=== PATIENT | female | born 1975 | race African-American/Black ===

== ENCOUNTER → 2016-11-03 | Outpatient (CLI) | payer OTHER ==
--- NOTE | 2016-11-03 18:26 | PN ---
This patient is coming in to discuss the results of the home sleep study that she underwent 09/30/2016. 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 Three out of seven days, the patient works from between midnight and 7:00 a.m. For an additional two days, she works afternoon shift. Unfortunate her sleep hygiene has been poor. After coming home from work, she would sleep late around noon time and she would average around 5 hours of sleep. Her home sleep study showed a mild obstructive sleep apnea with an AHI of 12.6. I offered CPAP therapy on this patient. She is not quite comfortable initiating the treatment yet. She would opt for weight loss and improving her sleep hygiene measures. She is having some issues with hypersomnia especially at work. Her Nardin score is at 13. No history of any motor vehicle accident because of feeling drowsy or sleepy. No sleep paralysis. No hallucinations. BP is 141/73, pulse 88, respirations 16, temperature is 97.8 and weight is 192. GENERAL APPEARANCE: Calm, comfortable. HEENT: Short neck, crowding of the posterior pharynx. There is no goiter, neck masses. LUNGS: Clear to auscultation. HEART: Heart sounds are regular rate and rhythm. Normal S1, S2. ABDOMEN: Soft, nontender. No organomegaly. EXTREMITIES: No edema. No cyanosis or clubbing. IMPRESSION: 1. Mild obstructive sleep apnea, apnea-hypopnea index of 12. 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 3. Chronic hypersomnia. 4. Obesity. 5. Bronchial asthma. 6. Hypertension. PLAN: 1. Improve sleep hygiene measures and weight loss. 2. We will see him back in 6 months, then we will consider CPAP therapy if no improvement in her symptoms of chronic hypersomnia.
== END | disposition home or self-care (01) ==

== ENCOUNTER → 2018-02-16 | Day surgery (SDC) | payer BC ==
[~2018-02-16] MED LIST: LACTATED RINGERS 1,000 ML IV ONE; LIDOCAINE 1% 20 ML VIAL (10MG/ML) FOR IV START INTRADERMA ONE; LIDOCAINE 1% INJ 10MG/ML (20 ML MDV) ONE; PROPOFOL 10 MG/ML 20 ML VIAL IV ONE
--- NOTE | 2018-02-16 10:07 | P.GSHP ---
History of Present Illness H&P Date: 02/16/18 CHIEF COMPLAINT: GERD HISTORY OF PRESENT ILLNESS: The patient is a 42-year-old female who presents reports gastroesophageal reflux disease. Upper endoscopy was offered for further evaluation and management. PAST MEDICAL HISTORY: Please see list. PAST SURGICAL HISTORY: Please see list. MEDICATIONS: Please see list. ALLERGIES: Please see list. SOCIAL HISTORY: No illicit drug use FAMILY HISTORY: No reports of Crohn disease or ulcerative colitis. REVIEW OF ORGAN SYSTEMS: CONSTITUTIONAL: No reports of fevers or chills. GI: Denies any blood in stools or constipation. PHYSICAL EXAM: VITAL SIGNS: Stable GENERAL: Well-developed and pleasant in no acute distress. HEENT: No scleral icterus. Extraocular movements grossly intact. Moist buccal mucosa. NECK: Supple without lymphadenopathy. CHEST: Unlabored respirations. Equal bilateral excursions. CARDIOVASCULAR: Regular rate and rhythm. Distal 2+ pulses. ABDOMEN: Soft, nondistended. MUSCULOSKELETAL: No clubbing, cyanosis, or edema. ASSESSMENT: 1. Gastroesophageal reflux disease PLAN: 1. Recommend proceeding with an upper endoscopy Past Medical History Past Medical History: Asthma, COPD, Hypertension, Osteoarthritis (OA) Additional Past Medical History / Comment(s): gout-PATIENT RECENTLY TOLD URIC ACID FINE OFF GOUT MEDICATION MAY NEVER HAVE HAD IT, also jackeline's syndrome History of Any Multi-Drug Resistant Organisms: None Reported Past Surgical History: Appendectomy, Section, Tubal Ligation Additional Past Surgical History / Comment(s): 3 c/s's Past Anesthesia/Blood Transfusion Reactions: No Reported Reaction Past Psychological History: No Psychological Hx Reported Smoking Status: Former smoker Past Alcohol Use History: Occasional Additional Past Alcohol Use History / Comment(s): quit smoking 2 years ago; smoked for about 8 years 1 ppd Past Drug Use History: None Reported - Past Family History Father Family Medical History: Hypertension Mother Family Medical History: Deep Vein Thrombosis (DVT), Hypertension Additional Family Medical History / Comment(s): BLOOD CLOTS FOR LEGS ON COUMADIN NOT ON IT AT THIS TIME, MOTHER STILL ALIVE Medications and Allergies Home Medications Medication Instructions Recorded Confirmed Type Albuterol Inhaler [Ventolin Hfa 1 puff INHALATION Q6HR PRN 06/03/14 01/20/18 History Inhaler] Verapamil HCl [Verapamil ER] 120 mg PO DAILY 11/04/14 01/20/18 History Meloxicam [Mobic] 7.5 mg PO DAILY 01/20/18 01/20/18 History amLODIPine [Norvasc] 5 mg PO DAILY 01/20/18 01/20/18 History HYDROcodone/APAP 5-325MG [[place] 1 tab PO Q6HR PRN #10 tab 01/27/18 Rx 5-325] Allergies Allergy/AdvReac Type Severity Reaction Status Date / Time No Known Allergies Allergy Verified 01/20/18 15:39
[2018-02-16 11:33] VITALS: TEMP 97.8
--- NOTE | 2018-02-16 12:58 | P.PCN ---
Date of Procedure: 02/16/18 Description of Procedure: PREOPERATIVE DIAGNOSIS: Gastroesophageal reflux disease. Epigastric abdominal pain POSTOPERATIVE DIAGNOSIS: Epigastric abdominal pain Gastroesophageal reflux disease. Diaphragmatic hiatal hernia without obstruction, sliding type Acute gastritis with recent bleeding OPERATION: Esophagogastroduodenoscopy with biopsies along antrum. SURGEON: Natalya Katz MD ANESTHESIA: MAC. INDICATIONS: The patient is a 42-year-old female who presents with a history of reflux disease. Benefits and risks of the procedure were described. Informed consent was obtained. DESCRIPTION: The patient was brought into the endoscopy suite and laid in the left lateral decubitus position. An Olympus gastroscope was passed along the posterior oropharynx down to the distal esophagus where the squamocolumnar junction was encountered at 30 cm from the incisors. The stomach was entered and no bile reflux was found. Additional findings are listed below. Biopsies with cold forceps were obtained of the antrum. The first through third portion of the duodenum was examined and unremarkable. Retroflexion of the scope confirmed Hill grade 4 lower esophageal valve. The squamocolumnar junction demostrated early and acute LA grade A erosive esophagitis. The stomach was desufflated. The patient tolerated the procedure well. FINDINGS: Squamocolumnar junction 30 cm from the incisors. Diaphragmatic hiatus at 36 cm. Hiatal hernia 6 cm, sliding type Hill grade 4 lower esophageal valve. LA grade A erosive esophagitis. No active duodenitis. Active gastritis or recent bleeding RECOMMENDATIONS: Further recommendations pending results of pathology report. Upper endoscopy as needed. Will benefit from antireflux surgical procedure Plan - Discharge Summary New Discharge Prescriptions: No Action Albuterol Inhaler [Ventolin Hfa Inhaler] 1 puff INHALATION Q6HR PRN PRN Reason: Dyspnea Verapamil HCl [Verapamil ER] 120 mg PO DAILY amLODIPine [Norvasc] 5 mg PO DAILY Meloxicam [Mobic] 7.5 mg PO DAILY HYDROcodone/APAP 5-325MG [[place] 5-325] 1 tab PO Q6HR PRN #10 tab PRN Reason: Pain Discharge Medication List Albuterol Inhaler [Ventolin Hfa Inhaler] 1 puff INHALATION Q6HR PRN 06/03/14 [ History] Verapamil HCl [Verapamil ER] 120 mg PO DAILY 11/04/14 [History] Meloxicam [Mobic] 7.5 mg PO DAILY 01/20/18 [History] amLODIPine [Norvasc] 5 mg PO DAILY 01/20/18 [History] HYDROcodone/APAP 5-325MG [[place] 5-325] 1 tab PO Q6HR PRN #10 tab 01/27/18 [Rx]
[2018-02-16 13:31] VITALS: BP 134/84; PULSE 80; RESP 20
--- NOTE | 2018-02-16 15:01 | FL ---
EXAMINATION TYPE: FL esophagus cervic/pharynx DATE OF EXAM: 02/16/2018 HISTORY: Hiatal hernia, pain COMPARISON: NONE TECHNIQUE: A single contrast esophagram is performed utilizing air and barium. 1 min 3 sec. 12 images saved. FINDINGS: The esophagus shows normal motility and emptying into the stomach. [id number] sliding-type hia florecita hernia noted. No evidence for esophagitis or intraluminal mass. No significant gastroesophageal r eflux was seen during real time performance of this study. IMPRESSION: Hiatal hernia as noted.
== END | disposition home or self-care (01) ==
LOC: ORWHC2ENDO 09:41
PROVIDERS: ATTEND Surgery Plastic and Reconstructive Surgery
DX: K29.51 Unspecified chronic gastritis with bleeding (principal); B96.81 Helicobacter pylori [H. pylori] as the cause of diseases classified elsewhere; K22.10 Ulcer of esophagus without bleeding; K21.0 Gastro-esophageal reflux disease with esophagitis; K44.9 Diaphragmatic hernia without obstruction or gangrene; I10 Essential (primary) hypertension; J44.9 Chronic obstructive pulmonary disease, unspecified; M19.90 Unspecified osteoarthritis, unspecified site; Z87.891 Personal history of nicotine dependence; Z79.1 Long term (current) use of non-steroidal anti-inflammatories (NSAID); Z79.899 Other long term (current) drug therapy
CPT/HCPCS: 81025; 88305; 74210; 43239; J2001; J2704; Q9967

== ENCOUNTER 2018-11-10 11:30 | Inpatient (IN) | payer BC ==
[2018-11-24] MEDS ORDERED: ceFAZolin IN SWFI 2 GM/20 ML SYRINGE IVP ONE (05:00)
[2018-11-24] MEDS ORDERED: HEPARIN SODIUM,PORCINE 5,000 UNIT/ML 1 ML VIAL SQ ONE (05:00)
[2018-11-24] MEDS ORDERED: SCOPOLAMINE 1.5MG/72HR PATCH TRANSDERM STA (09:15)
[2018-11-24] MEDS ORDERED: ACETAMINOPHEN IV (For NPO) 1,000 MG in EMPTY BAG 1 BAG IVPB ONE (09:15)
--- NOTE | 2018-11-24 09:19 | P.GSHP ---
History of Present Illness H&P Date: 11/24/18 CHIEF COMPLAINT: Paraesophageal hiatal hernia with gastroesophageal reflux disease. HISTORY OF PRESENT ILLNESS: The patient is a 43-year-old female who presents with paraesophageal hiatal hernia. She has completed an esophageal manometry including upper endoscopy workup. Now she presents for surgical intervention. PAST MEDICAL HISTORY: Please see list. PAST SURGICAL HISTORY: Please see list. MEDICATIONS: Please see list. ALLERGIES: Please see list. SOCIAL HISTORY: No illicit drug use FAMILY HISTORY: No reports of Crohn disease or ulcerative colitis. REVIEW OF ORGAN SYSTEMS: CONSTITUTIONAL: No reports of fevers or chills. GI: Denies any blood in stools or constipation. PHYSICAL EXAM: VITAL SIGNS: Stable GENERAL: Well-developed pleasant and in no acute distress. HEENT: No scleral icterus. Extraocular movements grossly intact. Moist buccal mucosa. NECK: Supple without lymphadenopathy. CHEST: Unlabored respirations. Equal bilateral excursions. CARDIOVASCULAR: Regular rate and rhythm. Distal 2+ pulses. ABDOMEN: Soft, nondistended. No peritoneal signs. MUSCULOSKELETAL: No clubbing, cyanosis, or edema. SKIN: Well-perfused. Good skin turgor. MANOMETRY: Shows no evidence of achalasia or scleroderma. ASSESSMENT: 1. Diaphragmatic paraesophageal hiatal hernia with severe gastroesophageal reflux disease. PLAN: 1. Recommend proceeding with a robotic paraesophageal hiatal hernia with possible mesh. 2. Benefits and risks of surgical intervention was discussed including possibility of open technique. 3. Inpatient hospitalization recommended of 2 nights 4. DVT prophylaxis. 5. Antibiotic prophylaxis. 6. She has also completed a very low caloric high-protein diet to address underlying hepatomegaly. 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 History of Any Multi-Drug Resistant Organisms: None Reported Past Surgical History: Appendectomy, Section, Cholecystectomy, Tubal Ligation Additional Past Surgical History / Comment(s): 3 c/s's Past Anesthesia/Blood Transfusion Reactions: No Reported Reaction Smoking Status: Former smoker - Past Family History Father Family Medical History: CVA/TIA, Hypertension Mother Family Medical History: Cancer, Deep Vein Thrombosis (DVT), Hypertension Additional Family Medical History / Comment(s): BLOOD CLOTS FOR LEGS ON COUMADIN NOT ON IT AT THIS TIME, MOTHER STILL ALIVE, vulva cancer Medications and Allergies Home Medications Medication Instructions Recorded Confirmed Type Albuterol Inhaler [Ventolin Hfa 1 puff INHALATION Q6HR PRN 06/03/14 11/21/18 History Inhaler] Meloxicam [Mobic] 7.5 mg PO DAILY 01/20/18 11/21/18 History amLODIPine [Norvasc] 5 mg PO DAILY 01/20/18 11/21/18 History Beclomethasone Dipropionate [Qvar 1 puff INHALATION BID PRN 11/21/18 11/21/18 History 80 mcg] Valsartan/Hydrochlorothiazide 1 each PO DAILY 11/21/18 11/21/18 History [Valsartan-Hctz 160-25 mg Tab] Allergies Allergy/AdvReac Type Severity Reaction Status Date / Time lisinopril Allergy "itchy Verified 11/21/18 13:59 throat"
[2018-11-24] MEDS ORDERED: LACTATED RINGERS 1,000 ML IV ONE ×4 (10:52→14:12)
[2018-11-24] MEDS ORDERED: ONDANSETRON 4 MG/2 ML VIAL IVP ONE (11:01)
[2018-11-24] MEDS ORDERED: DEXAMETHASONE SOD PHOSPHATE 10 MG/ML 1 ML VIAL IV ONE (11:02)
[2018-11-24] MEDS ORDERED: MIDAZOLAM 2 MG/2 ML VIAL IVP ONE (11:05)
[2018-11-24] MEDS ORDERED: NEOSTIGMINE 1 MG/ML 10 ML VIAL ONE (12:45)
[2018-11-24] MEDS ORDERED: METOPROLOL TARTRATE 5 MG/5 ML VIAL IVP ONE ×2 (12:45→17:37)
[2018-11-24] MEDS ORDERED: LABETALOL 5 MG/ML VIAL MDV ONE (12:45)
[2018-11-24] MEDS ORDERED: fentaNYL (PF) 50 MCG/ML 2 ML AMP ONE (12:45)
[2018-11-24] MEDS ORDERED: SUCCINYLCHOLINE CHLORIDE 100 MG/5 ML SYR IV ONE (12:45)
[2018-11-24] MEDS ORDERED: MIDAZOLAM 2 MG/2 ML VIAL ONE (12:45)
[2018-11-24] MEDS ORDERED: VECURONIUM 10 MG VIAL IV ONE (12:45)
[2018-11-24] MEDS ORDERED: GLYCOPYRROLATE 0.2 MG/ML 2 ML VIAL ONE (12:45)
[2018-11-24] MEDS ORDERED: HYDROmorphone (PF) 1 MG/ML ONE (12:45)
[2018-11-24] MEDS ORDERED: PROPOFOL 10 MG/ML 20 ML VIAL IV ONE (12:45)
[2018-11-24] MEDS ORDERED: LIDOCAINE 1% INJ 10MG/ML (20 ML MDV) ONE (12:45)
[2018-11-24] MEDS ORDERED: BUPIVACAIN-EPI 0.25%-1:200,000 30 ML VIAL SQ ONE (13:17)
[2018-11-24] MEDS ORDERED: HYDROcodone/APAP 15 ML SOLUTION PO PRN (16:16)
[2018-11-24] MEDS ORDERED: diphenhydrAMINE 50 MG/ML 1 ML VIAL IVP PRN (16:16)
[2018-11-24] MEDS ORDERED: NALOXONE 0.4 MG/ML 1 ML VIAL IV PRN (16:16)
[2018-11-24] MEDS ORDERED: HYDROmorphone 1 MG/ML 1 ML SYRINGE IVP PRN (16:16)
[2018-11-24] MEDS ORDERED: FLUTICASONE 110 MCG INHALER INHALATION PRN (16:19)
[2018-11-24 16:28] VITALS: RESP 16
--- NOTE | 2018-11-24 16:29 | P.OP ---
Date of Procedure: 11/24/18 Description of Procedure: SURGEON: ALIX MAYER MD PREOPERATIVE DIAGNOSES: 1. Gastroesophageal reflux disease. 2. Paraesophageal hiatal hernia, midline. 3. Chronic obstructive pulmonary disease 4. Asthma 5. Hypertensive heart disease POSTOPERATIVE DIAGNOSES: 1. Gastroesophageal reflux disease. 2. Paraesophageal hiatal hernia, midline, 9 cm x 4 cm 3. Chronic obstructive pulmonary disease 4. Asthma 5. Hypertensive heart disease OPERATION: 1. Robotic-assisted da Larry Xi laparoscopic repair of paraesophageal hiatal hernia, 9 x 4 cm, with [place] Biopatch A 8 x 8 cm. 2. Intraoperative esophagogastroduodenoscopy ANESTHESIA: General with local anesthetic. ESTIMATED BLOOD LOSS: 5 mL SPECIMENS REMOVED: None COMPLICATIONS: None. Pathology: none sent Condition: stable Disposition: floor FINDINGS: 1. Midline paraesophageal hiatal hernia 9 x 4 cm 2. Intraoperative upper endoscopy confirms complete closure of hiatal hernia from Hill grade 4 to Hill grade 1 INDICATIONS: The patient is a 43-year-old female who presents with regurgitation, gastroesophageal reflux disease poorly controlled despite medications, and a symptomatic diaphragmatic hiatal hernia. Preoperative workup including upper endoscopy demonstrated a Hill grade 4 lower esophageal valve. She completed an esophageal manometry. Given the severity of symptoms, she had elected for surgical intervention. Benefits and risks including bleeding, infection, recurrence, dysphagia, injury to the lung, need for further surgery was described at length. Informed consent was obtained. DESCRIPTION: The patient was brought into the operating room and placed in supine position. Preoperatively she had received heparin subcutaneously for DVT prophylaxis. After general induction, the abdomen was prepped and draped in standard sterile fashion. The patient had previously voided prior to coming to the operating room. [place]an draping was placed along the abdomen. A timeout protocol was confirmed with the surgical team, for which the patient's name, procedure to be performed including DVT prophylaxis with bilateral SCDs, and preoperative antibiotics were also confirmed. A robotic da Larry Xi system was prepped and primed. At 12 cm from the xiphoid to just below the umbilicus, proposed port sites were marked with indelible marker along the left axillary line, left mid-clavicular line with each ports were marked 10 cm from each other. A 5 mm 0 degrees laparoscopic trocar entry was performed along the left upper quadrant. The abdomen was insufflated to 15 mmHg pressure was tolerated well. Diagnostic laparoscopy demonstrated no injury to bowel, viscera, or mesentery. No injury had occurred to the small bowel or viscera. The liver edge was sharp consistent with her 2 week high protein, low carb diet. Next, one 8 mm robotic port was placed along the right upper abdomen. An 8-mm port was were placed along the left lateral abdominal wall. The camera 8-mm port was maintained along the epigastrium via the hernia defect. Another 12 mm port was placed along the left upper abdominal wall after exchanging the 5 mm port. Please note that the ports were placed at least 20 cm away from the target anatomy. Care was taken to check that each robotic arm were safely away from collision with the bed or the patient. At the epigastrium, a medium sized Evert liver retractor was placed under direct visualization with the [employer] Adjunct Instructor placed under the right shoulder of the patient. All robotic arms were used. The patient was repositioned in reverse Trendelenburg position at 14-degrees after lowering the bed. The robot was docked above the right side of the patient. Using a grasper for arm 3, a grasper for arm 1, including vessel sealer for arm 2, the robotic system was docked and primed as described. Instruments were interchanged by the diploma dental assistant. I had sat at the console. The gastrohepatic ligament was cleaved using a vessel sealer. Next, the phrenoesophageal ligament was mobilized and the distal esophagus was mobilized. The left and right crura was identified. A large hernia sac was incised well into the mediastinum to the arch of the aorta for a distance of 9 cm to dissect the esophagus and allowr reduction of the incarcerated paraesophageal hiatal hernia. Moderate dissection into the mediastinum was performed to release the esophagus into the abdominal cavity. Care was taken to avoid any gastrotomy. The measured defect was consistent with 9 cm axial length and 4 cm in width. After dissection, the distal esophagus of 1 cm was brought into the abdominal cavity. Intraoperative upper endoscopy was performed to prevent any injury to the esophagus upon dissection and to confirm complete reduction of the incarcerated paraesophageal hiatal hernia. Once the hiatus and crura was dissected, 2-0 VLOC suture was placed to reapproximate the diaphragmatic hiatus anteriorly as large splenic artery was at the posterior hiatus. To buttress the repair, a [place] Biopatch A was prepared along the back table and cut in half of a forbes-hole fashion as to reinforce the repair as an overlay. The mesh was placed along the crural repair and tagged using horizontal mattress sutures using 2-0 VLOC. I went to the head of the bed to perform intraoperative esophagogastroduodenoscopy and placement of a 56Fr bougie. An Olympus gastroscope was passed through posterior oropharynx.with help of anesthesia with jaw thrust. Retroflexion of the scope confirmed a Hill grade 1 lower esophageal valve. The stomach had been desufflated. No evidence of leaks were found of the esophagus or stomach. The squamocolumnar junction and hiatus was confirmed at 36 cm from the incisors. The GI tract with desufflated This concluded the endoscopic portion of the case. The robot was undocked from the patient. I re-scrubbed into the case. All instruments and pneumoperitoneum and specimens were evacuated from the abdominal cavity. Incisions were reapproximated using 4-0 Monocryl in an interrupted subcuticular fashion. Liquid glue was applied to the skin. Local anesthetic was infiltrated in all wounds for postop analgesia. Multiple intra-abdominal films were obtained. At the end of the procedure, needle, sponge, and instrument count was verified correct by the surgical corsetier. The patient had tolerated the procedure well and was taken to the postanesthesia unit in stable condition. Intraoperative films were reviewed with the patient's family who was pleased with the level of care. Console time 109 minutes.
[2018-11-24] MEDS: KETOROLAC 30 MG/ML 1 ML VIAL IVP SCH ×2 (18:21→23:57)
[2018-11-24] MEDS: METOCLOPRAMIDE 5 MG/ML 2 ML VIAL IVP SCH ×2 (18:22→23:58)
[2018-11-24] MEDS: HYOSCYAMINE ORAL DROPS 1.875 MG/15 ML BOTTLE PO SCH ×2 (18:27→23:58)
[2018-11-24] MEDS: SIMETHICONE 40 MG/0.6 ML DROPS 2,000 MG/30 ML BOTTLE PO SCH ×2 (18:27→23:58)
[2018-11-24] MEDS: 0.9% NACL WITH KCL 20 MEQ/L 1,000 ML IV SCH (19:17)
[2018-11-24] MEDS: ALBUTEROL NEBULIZED 2.5 MG/3 ML INHALATION SCH (20:43)
[2018-11-24] MEDS: amLODIPine 5 MG TAB PO SCH (21:11)
[2018-11-24] MEDS: HYDROCHLOROTHIAZIDE 25 MG TAB PO SCH (21:11)
[2018-11-24] MEDS: VALSARTAN 160 MG TAB PO SCH (21:11)
[2018-11-24] MEDS: ONDANSETRON 4 MG/2 ML VIAL IVP SCH (23:57)
[2018-11-24] MEDS: ceFAZolin IN SWFI 2 GM/20 ML SYRINGE IVP SCH (23:58)
[2018-11-25] MEDS: 0.9% NACL WITH KCL 20 MEQ/L 1,000 ML IV SCH ×2 (00:30→10:16)
[2018-11-25] MEDS: KETOROLAC 30 MG/ML 1 ML VIAL IVP SCH ×2 (05:11→12:59)
[2018-11-25] MEDS: METOCLOPRAMIDE 5 MG/ML 2 ML VIAL IVP SCH ×2 (05:11→12:59)
[2018-11-25] MEDS: SIMETHICONE 40 MG/0.6 ML DROPS 2,000 MG/30 ML BOTTLE PO SCH ×2 (05:11→12:58)
[2018-11-25] MEDS: HYOSCYAMINE ORAL DROPS 1.875 MG/15 ML BOTTLE PO SCH ×2 (05:12→12:58)
[2018-11-25 07:31] LABS: Anisocytosis Slight; Basophils % (A) 0 %; Eosinophils # (A) 0.1 k/uL (0-0.7); Eosinophils % (A) 1 %; HCT 28.7 % (34.0-46.0); HGB 8.6 gm/dL (11.4-16.0); Hypochromasia Slight; Lymphocytes # (A) 1.9 k/uL (1.0-4.8); Lymphocytes % (A) 25 %; MCH 26.7 pg (25.0-35.0); MCV 88.8 fL (80.0-100.0); Mean Platelet Volume 6.9; Monocytes # (A) 0.5 k/uL (0-1.0); Monocytes % (A) 7 %; Neutrophils # (A) 5.1 k/uL (1.3-7.7); Neutrophils % (A) 66 %; Platelet Count 274 k/uL (150-450); RBC 3.24 m/uL (3.80-5.40); RDW 16.1 % (11.5-15.5); WBC 7.8 k/uL (3.8-10.6)
[2018-11-25 08:00] LABS: Anion Gap 5 mmol/L; Blood Urea Nitrogen 12 mg/dL (7-17); Calcium 8.6 mg/dL (8.4-10.2); Carbon Dioxide 24 mmol/L (22-30); Chloride 110 mmol/L (98-107); Magnesium 1.7 mg/dL (1.6-2.3); Phosphorus 3.3 mg/dL (2.5-4.5); Potassium 4.6 mmol/L (3.5-5.1); Sodium 139 mmol/L (137-145)
[2018-11-25] MEDS ORDERED: 0.9% NACL WITH KCL 20 MEQ/L 1,000 ML IV SCH (08:00)
--- NOTE | 2018-11-25 08:04 | FL ---
EXAMINATION TYPE: FL esophagus cervic/pharynx DATE OF EXAM: 11/25/2018 CLINICAL HISTORY: Status post [place] fundoplication TECHNIQUE: Limited esophagram is performed utilizing 50 mL of Isovue-370. A total of 29 seconds of f luoroscopic time was utilized during procedure. 10 fluoroscopic images were saved. FINDINGS: The patient swallowed contrast without difficulty or delay. Esophageal peristalsis and mo tility are within normal limits. There is minimally delayed flow of contrast along the diaphragmatic hiatus into the stomach, there is no evidence of contrast extravasation to suggest leak. No persisten t hiatal hernia is seen. Patient remains asymptomatic. IMPRESSION: No evidence of leak or significant obstruction status post [place] fundoplication surgery earlier today.
[2018-11-25] MEDS ORDERED: amLODIPine 5 MG TAB PO SCH (09:00)
[2018-11-25] MEDS ORDERED: HYDROCHLOROTHIAZIDE 25 MG TAB PO SCH (09:00)
[2018-11-25] MEDS ORDERED: VALSARTAN 160 MG TAB PO SCH (09:00)
[2018-11-25] MEDS ORDERED: ENOXAPARIN 40 MG/0.4 ML SYRINGE SQ SCH (09:00)
[2018-11-25] MEDS ORDERED: PANTOPRAZOLE 40 MG/10 ML VIAL IV SCH (09:00)
[2018-11-25] MEDS: ALBUTEROL NEBULIZED 2.5 MG/3 ML INHALATION SCH ×3 (09:12→17:11)
[2018-11-25] MEDS: HYDROCHLOROTHIAZIDE 25 MG TAB PO SCH (10:15)
[2018-11-25] MEDS: VALSARTAN 160 MG TAB PO SCH (10:15)
[2018-11-25] MEDS: ceFAZolin IN SWFI 2 GM/20 ML SYRINGE IVP SCH (10:15)
[2018-11-25] MEDS: amLODIPine 5 MG TAB PO SCH (10:15)
[2018-11-25 12:58] VITALS: BMI 34.0
[2018-11-25] MEDS: ONDANSETRON 4 MG/2 ML VIAL IVP SCH (13:09)
--- NOTE | 2018-11-25 13:32 | P.DS ---
Providers Date of admission: 11/24/18 10:14 Expected date of discharge: 11/25/18 Attending physician: Natalya Katz Primary care physician: Donnie Quiroga - Discharge Diagnosis(es) (1) Paraesophageal hiatal hernia Status: Acute (2) Gastroesophageal reflux disease Status: Acute (3) Asthma Status: Acute (4) Hypertensive heart disease Status: Acute Hospital Course: POSTOPERATIVE DIAGNOSES: 1. Gastroesophageal reflux disease. 2. Paraesophageal hiatal hernia, midline, 9 cm x 4 cm 3. Chronic obstructive pulmonary disease 4. Asthma 5. Hypertensive heart disease COURSE: The patient is a 43-year-old female who presented with regurgitation, gastroesophageal reflux disease poorly controlled despite medications, and a symptomatic diaphragmatic hiatal hernia. Preoperative workup including upper endoscopy demonstrated a Hill grade 4 lower esophageal valve. She completed an esophageal manometry. Given the severity of symptoms, she had elected for surgical intervention. Postprocedure, she was tolerating diet. Her esophagram was within normal limits. Discharge instructions were thoroughl reviewed. Pertinent Studies: Esophagram within normal limits Procedures: OPERATION: 1. Robotic-assisted da Larry Xi laparoscopic repair of paraesophageal hiatal hernia, 9 x 4 cm, with [place] Biopatch A 8 x 8 cm. 2. Intraoperative esophagogastroduodenoscopy ANESTHESIA: General with local anesthetic. ESTIMATED BLOOD LOSS: 5 mL SPECIMENS REMOVED: None COMPLICATIONS: None. Pathology: none sent Condition: stable Disposition: floor FINDINGS: 1. Midline paraesophageal hiatal hernia 9 x 4 cm 2. Intraoperative upper endoscopy confirms complete closure of hiatal hernia from Hill grade 4 to Hill grade 1 Patient Condition at Discharge: Stable Plan - Discharge Summary Discharge Rx Participant: Yes New Discharge Prescriptions: New Bisacodyl [Dulcolax] 5 mg PO DAILY PRN #10 tablet.dr PRN Reason: Constipation HYDROcodone/APAP 5-325MG [[place] 5-325] 1 tab PO Q4HR PRN 3 Days #18 tab PRN Reason: Pain Ibuprofen [Motrin] 600 mg PO Q8HR PRN #30 tab PRN Reason: Pain Ondansetron Odt [Zofran Odt] 4 mg PO Q8HR PRN #9 tab PRN Reason: Nausea Simethicone 40 mg/0.6 ml Drops [Mylicon Drops] 40 mg PO PCHS PRN #30 ml PRN Reason: Gas Continue Albuterol Inhaler [Ventolin Hfa Inhaler] 1 puff INHALATION RT-Q6H PRN PRN Reason: Dyspnea amLODIPine [Norvasc] 5 mg PO DAILY Valsartan/Hydrochlorothiazide [Valsartan-Hctz 160-25 mg Tab] 1 tab PO DAILY Beclomethasone Dipropionate [Qvar 80 mcg] 1 puff INHALATION RT-BID PRN PRN Reason: Dyspnea Discharge Medication List Albuterol Inhaler [Ventolin Hfa Inhaler] 1 puff INHALATION RT-Q6H PRN 06/03/14 [ History] amLODIPine [Norvasc] 5 mg PO DAILY 01/20/18 [History] Beclomethasone Dipropionate [Qvar 80 mcg] 1 puff INHALATION RT-BID PRN 11/21/18 [History] Valsartan/Hydrochlorothiazide [Valsartan-Hctz 160-25 mg Tab] 1 tab PO DAILY 02/03 [History] Bisacodyl [Dulcolax] 5 mg PO DAILY PRN #10 tablet. 11/25/18 [Rx] HYDROcodone/APAP 5-325MG [[place] 5-325] 1 tab PO Q4HR PRN 3 Days #18 tab [Rx] Ibuprofen [Motrin] 600 mg PO Q8HR PRN #30 tab 11/25/18 [Rx] Ondansetron Odt [Zofran Odt] 4 mg PO Q8HR PRN #9 tab 11/25/18 [Rx] Simethicone 40 mg/0.6 ml Drops [Mylicon Drops] 40 mg PO PCHS PRN #30 ml [Rx] Follow up Appointment(s)/Referral(s): Natalya Katz MD [STAFF PHYSICIAN] - 11/29/18 2:20 pm Patient Instructions/Handouts: Laparoscopic Hiatal Hernia Repair (DC) Activity/Diet/Wound Care/Special Instructions: No lifting over 4 pounds in 4 weeks. May shower. No bathtub soaks. LIQUID DIET FOR 2 WEEKS TO 12/08/18. NO STRAWS. NO CARBONATED BEVERAGES. Please crush medications or open capsules for any medication larger than a tic tac Discharge Disposition: HOME SELF-CARE
[2018-11-25 15:58] VITALS: BP 115/75; PULSE 80; TEMP 97.9
[2018-11-26] MEDS ORDERED: BISACODYL 5 MG TABLET.DR PO PRN (08:00)
== END 2018-11-25 17:00 | disposition home or self-care (01) | DRG 328 ==
LOC: 2ORMAIN 11-24 10:14 → 4SSUR 11-24 16:28
PROVIDERS: ADMIT Surgery Plastic and Reconstructive Surgery; ATTEND Surgery Plastic and Reconstructive Surgery
PROC: 8E0W4CZ Robotic Assisted Procedure of Trunk Region, Percutaneous Endoscopic Approach (ICD-10-PCS; principal; 2018-11-24 12:15)
PROC: 0BUT4JZ Supplement Diaphragm with Synthetic Substitute, Percutaneous Endoscopic Approach (ICD-10-PCS; principal; 2018-11-24 12:15)
PROC: 0DJ08ZZ Inspection of Upper Intestinal Tract, Via Natural or Artificial Opening Endoscopic (ICD-10-PCS; principal; 2018-11-24 12:15)
DX: K44.0 Diaphragmatic hernia with obstruction, without gangrene (principal); I11.9 Hypertensive heart disease without heart failure; J44.9 Chronic obstructive pulmonary disease, unspecified; K21.9 Gastro-esophageal reflux disease without esophagitis; Z79.899 Other long term (current) drug therapy; Z82.49 Family history of ischemic heart disease and other diseases of the circulatory system; Z87.891 Personal history of nicotine dependence; Z90.49 Acquired absence of other specified parts of digestive tract; Z98.51 Tubal ligation status; Z88.8 Allergy status to other drugs, medicaments and biological substances
CPT/HCPCS: 74210; 80051; 81025; 82310; 82565; 83735; 84100; 84520; 85025; 94640

== ENCOUNTER → 2018-11-22 | Outpatient (CLI) | payer BC ==
[2018-11-22 09:27] LABS: HCT 31.7 % (34.0-46.0); HGB 9.9 gm/dL (11.4-16.0); Hypochromasia Moderate; MCH 28.1 pg (25.0-35.0); MCHC 31.3 g/dL (31.0-37.0); MCV 89.7 fL (80.0-100.0); Mean Platelet Volume 6.1; Platelet Count 298 k/uL (150-450); RBC 3.54 m/uL (3.80-5.40); RDW 15.7 % (11.5-15.5); WBC 8.1 k/uL (3.8-10.6)
== END ==
LOC: LABPAT 08:20
PROVIDERS: ATTEND Surgery Plastic and Reconstructive Surgery
DX: Z01.818 Encounter for other preprocedural examination (principal); Z01.812 Encounter for preprocedural laboratory examination
CPT/HCPCS: 36415; 84132; 85027; 93005

== ENCOUNTER 2019-08-02 13:09 | Emergency (ER) | payer BC ==
[2019-08-02 13:14] VITALS: BP 154/94; PULSE 74; RESP 18; TEMP 98.8
--- NOTE | 2019-08-02 13:57 | XR ---
EXAMINATION TYPE: XR knee complete LT DATE OF EXAM: 08/02/2019 CLINICAL HISTORY: Pain and swelling. TECHNIQUE: Three views of the left knee are obtained. COMPARISON: Pain and swelling. FINDINGS: There is no acute fracture/dislocation evident in left knee. Mild to moderate tricompartme nt joint space loss and spurring with relative sparing of the lateral tibiofemoral compartment. The overlying soft tissue appears unremarkable. IMPRESSION: As above.
--- NOTE | 2019-08-02 14:20 | ED ---
Lower Extremity Injury HPI - General Chief Complaint: Extremity Injury, Lower Stated Complaint: Leg Swelling Time Seen by Provider: 08/02/19 13:19 Source: patient Mode of arrival: ambulatory Limitations: no limitations - History of Present Illness Initial Comments: 43-year-old female presenting for left knee pain. Patient states she feels it is a slightly more swollen than the right. Patient states she does have history of right-sided septic arthritis. Patient states she does suffer from chronic rheumatoid arthritis. 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 Patient states the past day she has had increasing left knee pain no history of trauma. She denies redness. Patient that she is able ambulate weight-bear. Patient states she is able to bend with discomfort. Patient has a fever flu like symptoms. Patient has a repeat set up rest or symptoms or infections elsewhere. Patient has a prosthesis of the left knee. Patient states she does know she is extensive arthritis in that knee. Remaining review of system negative. Upon arrival patient appears well no signs of acute distress. Afebrile - Related Data Home Medications Medication Instructions Recorded Confirmed Albuterol Inhaler [Ventolin Hfa 1 - 2 puff INHALATION RT-Q6H PRN 06/03/14 08/02/19 Inhaler] amLODIPine [Norvasc] 5 mg PO DAILY 01/20/18 08/02/19 Valsartan/Hydrochlorothiazide 1 tab PO DAILY 11/21/18 08/02/19 [Valsartan-Hctz 160-25 mg Tab] Previous Rx's Medication Instructions Recorded Ibuprofen 800 mg PO Q8H PRN 7 Days #21 tablet 08/02/19 predniSONE 20 mg PO DAILY 5 Days #5 tab 08/02/19 Allergies Allergy/AdvReac Type Severity Reaction Status Date / Time lisinopril Allergy "itchy Verified 08/02/19 13:21 throat" Review of Systems ROS Statement: Those systems with pertinent positive or pertinent negative responses have been documented in the HPI. ROS Other: All systems not noted in ROS Statement are negative. 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 History of Any Multi-Drug Resistant Organisms: None Reported Past Surgical History: Appendectomy, Section, Cholecystectomy, Hernia Repair, Tubal Ligation Additional Past Surgical History / Comment(s): 3 c/s's Past Anesthesia/Blood Transfusion Reactions: No Reported Reaction Past Psychological History: No Psychological Hx Reported Smoking Status: Former smoker Past Alcohol Use History: Occasional Past Drug Use History: None Reported - Past Family History Father Family Medical History: CVA/TIA, Hypertension Additional Family Medical History / Comment(s): still alive Mother Family Medical History: Cancer, Deep Vein Thrombosis (DVT), Hypertension Additional Family Medical History / Comment(s): BLOOD CLOTS FOR LEGS ON COUMADIN NOT ON IT AT THIS TIME, MOTHER STILL ALIVE, vulva cancer General Exam - General Exam Comments Initial Comments: General: The patient is awake and alert, in no distress, and does not appear acutely ill. Eye: Pupils are equal, round and reactive to light, extra-ocular movements are intact. No nystagmus. There is normal conjunctiva bilaterally. No signs of icterus. . Cardiovascular: There is a regular rate and rhythm. No murmur, rub or gallop is appreciated. Respiratory: Lungs are clear to auscultation, respirations are non-labored, breath sounds are equal. No wheezes, stridor, rales, or rhonchi. Musculoskeletal: Upon special knees bilaterally there are equal. No soft tissue swelling of the left knee appreciate. No redness no warmth to palpation. Patient is able to flex and extend fully at the left knee no pain out of proportion. Patient is able to weight-bear. Sensation intact both proximal distal to affected area. Strong dorsalis pedis pulses. The plan of discomfort with range of motion there is no point localized tenderness. Neurological: A&O x 3. CN II-XII intact grossly, There are no obvious motor or sensory deficits. Coordination appears grossly intact. Speech is normal. Skin: Skin is warm and dry and no rashes or lesions are noted. Psychiatric: Cooperative, appropriate mood & affect, normal judgment. Limitations: no limitations Course Vital Signs 08/02/19 13:10 Temperature 98.8 F Pulse Rate 74 Respiratory 18 Rate Blood Pressure 154/94 O2 Sat by Pulse 99 Oximetry Medical Decision Making - Medical Decision Making 43-year-old feel presented for left knee pain. Atraumatic. No redness no warmth. No swelling appreciated. Patient is able flex and extend at the knee. No pain out of proportion. Can weight-bear. Patient does have history of osteoarthritis as well as rheumatoid arthritis. No effusion on x-ray. Significant arthritis was appreciated. Patient evaluated by attending provider. At this time he recommended discharge with NSAIDs steroids and outpatient primary care follow-up. Return parameters and signs of septic arthritis were discussed at length the patient who verbalizes understanding the importance of return parameters. Patient was discharged appearing well Disposition Clinical Impression: Left knee pain, Arthritis of left knee Disposition: HOME SELF-CARE Condition: Good Instructions (If sedation given, give patient instructions): R.I.C.E. Treatment (ED), Arthritis (ED) Additional Instructions: Please use medication as discussed. Please follow-up with family doctor in the next 2 days. Please return to emergency room if the symptoms increase or worsen or for any other concerns. Prescriptions: Ibuprofen 800 mg PO Q8H PRN 7 Days #21 tablet PRN Reason: Pain predniSONE 20 mg PO DAILY 5 Days #5 tab Is patient prescribed a controlled substance at d/c from ED?: No Referrals: Donnie Quiroga DO [Primary Care Provider] - 1-2 days Time of Disposition: 14:17
== END 2019-08-02 14:43 | disposition home or self-care (01) ==
LOC: EC 13:09
DX: M17.12 Unilateral primary osteoarthritis, left knee (principal); M06.9 Rheumatoid arthritis, unspecified; J44.9 Chronic obstructive pulmonary disease, unspecified; I10 Essential (primary) hypertension; Z79.899 Other long term (current) drug therapy; Z88.8 Allergy status to other drugs, medicaments and biological substances; Z87.891 Personal history of nicotine dependence
CPT/HCPCS: 99283

== ENCOUNTER 2019-08-21 08:36 | Emergency (ER) | payer BC ==
[2019-08-21 08:40] VITALS: RESP 18
[2019-08-21] MEDS ORDERED: SODIUM CHLORIDE 0.9% 1,000 ML IV STA ×2 (09:02→11:03)
[2019-08-21] MEDS ORDERED: DICYCLOMINE 10 MG/ML 2 ML AMP IM STA (09:02)
[2019-08-21] MEDS ORDERED: ONDANSETRON 4 MG/2 ML VIAL IVP STA (09:02)
[2019-08-21] MEDS ORDERED: FAMOTIDINE 20 MG/2 ML VIAL IV STA (09:03)
--- NOTE | 2019-08-21 09:05 | ED ---
General Adult HPI - General Chief complaint: Abdominal Pain Stated complaint: diarrhea x 2 days Time Seen by Provider: 08/21/19 08:55 Source: patient, RN notes reviewed Mode of arrival: ambulatory Limitations: no limitations - History of Present Illness Initial comments: Patient is a pleasant 43-year-old female presenting to the emergency Department with complaints of diarrhea. Onset of symptoms was 2 days ago. Patient is having episodes up to 10 times daily. Patient states diarrhea is watery. Patient was on antibiotics around 1 month ago. Patient has had similar symptoms to this multiple times over the past few years. Patient has had her gallbladder out. Patient also questions if her hernia surgery may have been related to this. No fevers. Patient does have nausea however no vomiting. Patient does belch occasionally. Patient has intermittent abdominal cramping. - Related Data Home Medications Medication Instructions Recorded Confirmed Albuterol Inhaler [Ventolin Hfa 1 - 2 puff INHALATION RT-Q6H PRN 06/03/14 08/21/19 Inhaler] amLODIPine [Norvasc] 5 mg PO DAILY 01/20/18 08/21/19 Valsartan/Hydrochlorothiazide 1 tab PO DAILY 11/21/18 08/21/19 [Valsartan-Hctz 160-25 mg Tab] Previous Rx's Medication Instructions Recorded Ibuprofen 800 mg PO Q8H PRN 7 Days #21 tablet 08/02/19 Dicyclomine [Bentyl] 20 mg PO QID #20 tablet 08/21/19 Allergies Allergy/AdvReac Type Severity Reaction Status Date / Time lisinopril Allergy SWELLING,IT Verified 08/21/19 09:05 IPNO Review of Systems ROS Statement: Those systems with pertinent positive or pertinent negative responses have been documented in the HPI. ROS Other: All systems not noted in ROS Statement are negative. Constitutional: Denies: fever Eyes: Denies: eye pain ENT: Denies: ear pain Respiratory: Denies: cough Cardiovascular: Denies: chest pain Endocrine: Denies: fatigue Gastrointestinal: Reports: as per HPI, nausea, diarrhea. 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 History of Any Multi-Drug Resistant Organisms: None Reported Past Surgical History: Appendectomy, Section, Cholecystectomy, Hernia Repair, Tubal Ligation Additional Past Surgical History / Comment(s): 3 c/s's Past Anesthesia/Blood Transfusion Reactions: No Reported Reaction Past Psychological History: No Psychological Hx Reported Smoking Status: Former smoker Past Alcohol Use History: Occasional Past Drug Use History: None Reported - Past Family History Father Family Medical History: CVA/TIA, Hypertension Additional Family Medical History / Comment(s): still alive Mother Family Medical History: Cancer, Deep Vein Thrombosis (DVT), Hypertension Additional Family Medical History / Comment(s): BLOOD CLOTS FOR LEGS ON COUMADIN NOT ON IT AT THIS TIME, MOTHER STILL ALIVE, vulva cancer General Exam Limitations: no limitations General appearance: alert, in no apparent distress Head exam: Present: normocephalic Eye exam: Present: normal appearance, PERRL ENT exam: Present: normal oropharynx Neck exam: Present: normal inspection Respiratory exam: Present: normal lung sounds bilaterally Cardiovascular Exam: Present: regular rate, normal rhythm Expanded Peripheral pulses: 2+: Dorsalis Pedis (R), Dorsalis Pedis (L) GI/Abdominal exam: Present: soft, tenderness (Mild tenderness epigastric region), normal bowel sounds. Absent: distended, guarding, rebound, rigid, pulsatile mass Extremities exam: Present: normal inspection. Absent: pedal edema, calf tenderness Neurological exam: Present: alert Psychiatric exam: Present: normal affect, normal mood Skin exam: Present: normal color Course Vital Signs 08/21/19 08:37 Temperature 98.3 F Pulse Rate 92 Respiratory 18 Rate Blood Pressure 201/106 O2 Sat by Pulse 99 Oximetry Medical Decision Making - Medical Decision Making Patient reevaluated and resting comfortably in bed. Patient updated on results and need for follow-up. Patient is recommended to consider GI follow-up. Patient requests a note for work for today. - Lab Data Result diagrams: 08/21/19 09:36 08/21/19 09:36 Lab Results 08/21/19 08/21/19 08/21/19 Range/Units 09:15 09:15 09:36 WBC (3.8-10.6) k/uL RBC (3.80-5.40) m/uL Hgb (11.4-16.0) gm/dL Hct (34.0-46.0) % MCV (80.0-100.0) fL MCH (25.0-35.0) pg MCHC (31.0-37.0) g/dL RDW (11.5-15.5) % Plt Count (150-450) k/uL Neutrophils % % Lymphocytes % % Monocytes % % Eosinophils % % Basophils % % Neutrophils # (1.3-7.7) k/uL Lymphocytes # (1.0-4.8) k/uL Monocytes # (0-1.0) k/uL Eosinophils # (0-0.7) k/uL Basophils # (0-0.2) k/uL Hypochromasia Anisocytosis Sodium 136 L (137-145) mmol/L Potassium 5.0 (3.5-5.1) mmol/L Chloride 112 H (98-107) mmol/L Carbon Dioxide 15 L (22-30) mmol/L Anion Gap 9 mmol/L BUN 11 (7-17) mg/dL Creatinine 0.69 (0.52-1.04) mg/dL Est GFR (CKD-EPI)AfAm >90 (>60 ml/min/1.73 sqM) Est GFR (CKD-EPI)NonAf >90 (>60 ml/min/1.73 sqM) Glucose 88 (74-99) mg/dL Calcium 9.4 (8.4-10.2) mg/dL Total Bilirubin 1.3 (0.2-1.3) mg/dL AST 50 H (14-36) U/L ALT <6 L (9-52) U/L Alkaline Phosphatase 78 (38-126) U/L Total Protein 7.9 (6.3-8.2) g/dL Albumin 3.9 (3.5-5.0) g/dL Amylase 75 (30-110) U/L Lipase 61 (23-300) U/L Urine Color Yellow Urine Appearance Cloudy H (Clear) Urine pH 6.0 (5.0-8.0) Ur Specific [place] 1.017 (1.001-1.035) Urine Protein Trace H (Negative) Urine Glucose (UA) Negative (Negative) Urine Ketones Negative (Negative) Urine Blood Negative (Negative) Urine Nitrite Negative (Negative) Urine Bilirubin Negative (Negative) Urine Urobilinogen <2.0 (<2.0) mg/dL Ur Leukocyte Esterase Negative (Negative) Urine RBC 1 (0-5) /hpf Urine WBC 6 H (0-5) /hpf Ur Squamous Epith Cells 26 H (0-4) /hpf C. difficile (EIA) Intrp Negative (Negative) 08/21/19 Range/Units 09:36 WBC 5.1 (3.8-10.6) k/uL RBC 3.57 L (3.80-5.40) m/uL Hgb 9.3 L (11.4-16.0) gm/dL Hct 30.3 L (34.0-46.0) % MCV 85.0 (80.0-100.0) fL MCH 26.0 (25.0-35.0) pg MCHC 30.5 L (31.0-37.0) g/dL RDW 16.0 H (11.5-15.5) % Plt Count 213 (150-450) k/uL Neutrophils % 59 % Lymphocytes % 32 % Monocytes % 5 % Eosinophils % 2 % Basophils % 0 % Neutrophils # 3.0 (1.3-7.7) k/uL Lymphocytes # 1.6 (1.0-4.8) k/uL Monocytes # 0.3 (0-1.0) k/uL Eosinophils # 0.1 (0-0.7) k/uL Basophils # 0.0 (0-0.2) k/uL Hypochromasia Marked Anisocytosis Slight Sodium (137-145) mmol/L Potassium (3.5-5.1) mmol/L Chloride (98-107) mmol/L Carbon Dioxide (22-30) mmol/L Anion Gap mmol/L BUN (7-17) mg/dL Creatinine (0.52-1.04) mg/dL Est GFR (CKD-EPI)AfAm (>60 ml/min/1.73 sqM) Est GFR (CKD-EPI)NonAf (>60 ml/min/1.73 sqM) Glucose (74-99) mg/dL Calcium (8.4-10.2) mg/dL Total Bilirubin (0.2-1.3) mg/dL AST (14-36) U/L ALT (9-52) U/L Alkaline Phosphatase (38-126) U/L Total Protein (6.3-8.2) g/dL Albumin (3.5-5.0) g/dL Amylase (30-110) U/L Lipase (23-300) U/L Urine Color Urine Appearance (Clear) Urine pH (5.0-8.0) Ur Specific [place] (1.001-1.035) Urine Protein (Negative) Urine Glucose (UA) (Negative) Urine Ketones (Negative) Urine Blood (Negative) Urine Nitrite (Negative) Urine Bilirubin (Negative) Urine Urobilinogen (<2.0) mg/dL Ur Leukocyte Esterase (Negative) Urine RBC (0-5) /hpf Urine WBC (0-5) /hpf Ur Squamous Epith Cells (0-4) /hpf C. difficile (EIA) Intrp (Negative) - Radiology Data Radiology results: image reviewed (KUB shows air-fluid levels suggesting liquid stool which could relate to enteritis or generalized ileus.) Disposition Clinical Impression: Diarrhea Disposition: HOME SELF-CARE Condition: Stable Instructions (If sedation given, give patient instructions): Acute Diarrhea (ED) Additional Instructions: Please follow-up with primary care physician and gastroenterology as well as Dr. Peterson in the next couple days for recheck. Return for increased pain, fevers, vomiting, worsening symptoms or other concerns. Your prescription has been sent to [facility]. Prescriptions: Dicyclomine [Bentyl] 20 mg PO QID #20 tablet Is patient prescribed a controlled substance at d/c from ED?: No Referrals: Donnie Quiroga DO [Primary Care Provider] - 1-2 days Time of Disposition: 11:39
[2019-08-21 10:12] LABS: Appearance,Urine Cloudy (Clear); Bilirubin,Urine Negative (Negative); Blood,Urine Negative (Negative); Color,Urine Yellow; Glucose,Urine (UA) Negative (Negative); Ketones,Urine Negative (Negative); Leukocyte Esterase,Urine Negative (Negative); Nitrite,Urine Negative (Negative); Protein,Urine Trace (Negative); RBC,Urine 1 /hpf (0-5); Specific Gravity,Urine 1.017 (1.001-1.035); Squamous Epithelial Cell,Urine 26 /hpf (0-4); Urobilinogen,Urine <2.0 mg/dL (<2.0); WBC,Urine 6 /hpf (0-5)
--- NOTE | 2019-08-21 10:15 | XR ---
EXAMINATION TYPE: XR KUB DATE OF EXAM: 08/21/2019 CLINICAL DATA: 43-year-old female with abdominal pain, [facility] COMPARISON: 10/10/2011 FINDINGS: Lung bases are clear. No evidence for free intraperitoneal air. No dilated small bowel is seen. Colonic air-fluid levels throughout without significant stool burden. No suspicious calcifications. IMPRESSION: 1. Colonic air-fluid levels throughout suggesting liquid stool which could relate to enteritis or a g eneralized ileus. 2. No dilated small bowel loops to suggest small bowel obstruction at this time.
[2019-08-21 10:41] LABS: Anisocytosis Slight; Basophils % (A) 0 %; Eosinophils # (A) 0.1 k/uL (0-0.7); Eosinophils % (A) 2 %; HCT 30.3 % (34.0-46.0); HGB 9.3 gm/dL (11.4-16.0); Hypochromasia Marked; Lymphocytes # (A) 1.6 k/uL (1.0-4.8); Lymphocytes % (A) 32 %; MCHC 30.5 g/dL (31.0-37.0); Mean Platelet Volume 6.1; Monocytes # (A) 0.3 k/uL (0-1.0); Monocytes % (A) 5 %; Neutrophils % (A) 59 %; Platelet Count 213 k/uL (150-450); RBC 3.57 m/uL (3.80-5.40); WBC 5.1 k/uL (3.8-10.6)
[2019-08-21 10:43] LABS: ALT <6 U/L (9-52); AST 50 U/L (14-36); African American GFR (CKD) >90 (>60 ml/min/1.73 sqM); Albumin 3.9 g/dL (3.5-5.0); Alkaline Phosphatase 78 U/L (38-126); Amylase 75 U/L (30-110); Anion Gap 9 mmol/L; Blood Urea Nitrogen 11 mg/dL (7-17); Calcium 9.4 mg/dL (8.4-10.2); Carbon Dioxide 15 mmol/L (22-30); Chloride 112 mmol/L (98-107); Glucose 88 mg/dL (74-99); Sodium 136 mmol/L (137-145); Total Bilirubin 1.3 mg/dL (0.2-1.3); Total Protein 7.9 g/dL (6.3-8.2)
[2019-08-21 12:36] VITALS: BP 169/98; PULSE 74; TEMP 98
== END 2019-08-21 12:35 | disposition home or self-care (01) ==
LOC: EC 08:36
DX: R19.7 Diarrhea, unspecified (principal); R10.9 Unspecified abdominal pain; R11.0 Nausea; J44.9 Chronic obstructive pulmonary disease, unspecified; I10 Essential (primary) hypertension; Z90.49 Acquired absence of other specified parts of digestive tract; Z98.51 Tubal ligation status; Z87.891 Personal history of nicotine dependence; Z79.899 Other long term (current) drug therapy; Z88.8 Allergy status to other drugs, medicaments and biological substances
CPT/HCPCS: 36415; 80053; 82150; 83690; 85025; 81001; 87324; 87045; 87046; 74018; 99284; 96374; 96375; 96361 ×2; 96372; J0500; J2405

== ENCOUNTER 2019-12-27 16:45 | Emergency (ER) | payer BC ==
--- NOTE | 2019-12-27 18:02 | ED ---
Extremity Problem HPI - General Chief complaint: Extremity Problem,Nontraumatic Stated complaint: lt knee pain Time Seen by Provider: 12/27/19 17:28 Source: patient Mode of arrival: ambulatory Limitations: no limitations - History of Present Illness Initial comments: Patient is a 44-year-old female presenting to the emergency Department with complaints of left knee pain since yesterday. Patient states she works at a [employer] and does a lot of bending, lifting and twisting. Patient thinks she may have felt a pop however does not remember any specific incident or falls. She denies any history of surgeries on her left knee. She denies history of blood clots. She states the pain is located on the medial aspect of the left knee. She describes it as a slight burning sensation. States that increases when she walks. She has no other complaints at this time. She denies fever, chills, nausea, vomiting. Upon arrival to the ER, her vital signs are stable. - Related Data Home Medications Medication Instructions Recorded Confirmed Albuterol Inhaler [Ventolin Hfa 1 - 2 puff INHALATION RT-Q6H PRN 06/03/14 08/21/19 Inhaler] amLODIPine [Norvasc] 5 mg PO DAILY 01/20/18 08/21/19 Valsartan/Hydrochlorothiazide 1 tab PO DAILY 11/21/18 08/21/19 [Valsartan-Hctz 160-25 mg Tab] Previous Rx's Medication Instructions Recorded Ibuprofen 800 mg PO Q8H PRN 7 Days #21 tablet 08/02/19 Dicyclomine [Bentyl] 20 mg PO QID #20 tablet 08/21/19 Allergies Allergy/AdvReac Type Severity Reaction Status Date / Time lisinopril Allergy SWELLING,IT Verified 08/21/19 09:05 PINO Review of Systems ROS Statement: Those systems with pertinent positive or pertinent negative responses have been documented in the HPI. ROS Other: All systems not noted in ROS Statement are negative. 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 History of Any Multi-Drug Resistant Organisms: None Reported Past Surgical History: Appendectomy, Section, Cholecystectomy, Hernia Repair, Tubal Ligation Additional Past Surgical History / Comment(s): 3 c/s's Past Anesthesia/Blood Transfusion Reactions: No Reported Reaction Past Psychological History: No Psychological Hx Reported Smoking Status: Former smoker Past Alcohol Use History: Occasional Past Drug Use History: None Reported - Past Family History Father Family Medical History: CVA/TIA, Hypertension Additional Family Medical History / Comment(s): still alive Mother Family Medical History: Cancer, Deep Vein Thrombosis (DVT), Hypertension Additional Family Medical History / Comment(s): BLOOD CLOTS FOR LEGS ON COUMADIN NOT ON IT AT THIS TIME, MOTHER STILL ALIVE, vulva cancer General Exam - General Exam Comments Initial Comments: GENERAL: Well-appearing, well-nourished and in no acute distress. HEAD: Atraumatic, normocephalic. EYES: Pupils equal round and reactive to light, extraocular movements intact, sclera anicteric, conjunctiva are normal. ENT: Moist mucous membranes. NECK: Normal range of motion, supple without lymphadenopathy or JVD. LUNGS: Breath sounds clear to auscultation bilaterally and equal. No wheezes rales or rhonchi. HEART: Regular rate and rhythm without murmurs, rubs or gallops. ABDOMEN: Soft, nontender, normoactive bowel sounds. No guarding, no rebound. No masses appreciated. : Deferred EXTREMITIES: Tenderness to palpation of the medial aspect of the left knee. There is no swelling or deformity noted. No signs of erythema. No pain to palpation of the left calf. Neurovascular intact. No clubbing or cyanosis. NEUROLOGICAL: Normal speech, normal gait. PSYCH: Normal mood, normal affect. SKIN: Warm, Dry, normal turgor, no rashes or lesions noted. Limitations: no limitations Course Vital Signs 12/27/19 12/27/19 16:51 18:57 Temperature 98.4 F 98.0 F Pulse Rate 101 H 90 Respiratory 19 18 Rate Blood Pressure 149/93 148/84 O2 Sat by Pulse 98 100 Oximetry Medical Decision Making - Medical Decision Making Patient is a 44-year-old female presenting with left knee pain. No acute trauma or injuries. X-rays reveal no acute fractures dislocations. I discussed with patient this is most likely an overuse injury. She'll continue to use ice to the area as well as Tylenol or Motrin for pain. She is stable for discharge. She is in agreement with this plan of care. She will follow-up with PCP if symptoms persist. Disposition Clinical Impression: Left knee pain Disposition: HOME SELF-CARE Condition: Stable Instructions (If sedation given, give patient instructions): Knee Pain (ED) Additional Instructions: Please return to the Emergency Department if symptoms worsen or any other concerns. Use ice the area, Tylenol or Motrin. Follow up with orthopedics if symptoms do not improve in 1-2 weeks. Is patient prescribed a controlled substance at d/c from ED?: No Referrals: Donnie Quiroga DO [Primary Care Provider] - 1-2 days Edenilson Mccarthy PAC [PH[employer]IC[employer]] - 1-2 days
--- NOTE | 2019-12-27 18:18 | XR ---
Left knee HISTORY: Pain and swelling 3 views of left knee correlated prior exam 08/02/2019 Soft tissue calcifications in the posterior soft tissues show similar appearance. There is no evident joint effusion. Bone mineralization, joint spaces and alignment show similar appearance, there is ma rginal spurring in the medial compartment. IMPRESSION: Osteoarthritis. Suspect vascular calcifications.
[2019-12-27 19:00] VITALS: BP 148/84; PULSE 90; RESP 18; TEMP 98
== END 2019-12-27 18:57 | disposition home or self-care (01) ==
LOC: EC 16:45
DX: M25.562 Pain in left knee (principal); J44.9 Chronic obstructive pulmonary disease, unspecified; M19.90 Unspecified osteoarthritis, unspecified site; Z87.891 Personal history of nicotine dependence; Z88.8 Allergy status to other drugs, medicaments and biological substances
CPT/HCPCS: 99283

== ENCOUNTER 2020-04-25 10:57 | Emergency (ER) | payer BC ==
--- NOTE | 2020-04-25 11:31 | ED ---
Extremity Problem HPI - General Chief complaint: Extremity Problem,Nontraumatic Stated complaint: L Arm numbness x3 months Time Seen by Provider: 04/25/20 11:14 Source: patient, RN notes reviewed Mode of arrival: ambulatory Limitations: no limitations - History of Present Illness Initial comments: 44-year-old female presents emergency from chief complaint left arm pain, numbness. Patient has intermittent symptoms which have been worsening. She states it worsened at work last night which prompted to come to the emergency Department today. She states she started with a sore neck 3 months ago in which her neck pain does did resolve what she's had this persistent pain from her left shoulder to the touch her finger. She states it's in numbness, achy feeling. She denies any associated weakness no chest pain or shortness of breath. Patient states she does have full range of motion pain is improved when she holds her arm to her chest or above her head. 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 - Related Data Home Medications Medication Instructions Recorded Confirmed Albuterol Inhaler (Mhu) [Ventolin 1 - 2 puff INHALATION RT-Q6H PRN 06/03/14 08/21/19 Hfa Inhaler (Mhu)] amLODIPine [Norvasc] 5 mg PO DAILY 01/20/18 08/21/19 Valsartan/Hydrochlorothiazide 1 tab PO DAILY 11/21/18 08/21/19 [Valsartan-Hctz 160-25 mg Tab] Previous Rx's Medication Instructions Recorded Ibuprofen 800 mg PO Q8H PRN 7 Days #21 tablet 08/02/19 Dicyclomine [Bentyl] 20 mg PO QID #20 tablet 08/21/19 predniSONE 50 mg PO DAILY #5 tab 04/25/20 Allergies Allergy/AdvReac Type Severity Reaction Status Date / Time lisinopril Allergy SWELLING,IT Verified 04/25/20 11:07 PINO Review of Systems ROS Statement: Those systems with pertinent positive or pertinent negative responses have been documented in the HPI. ROS Other: All systems not noted in ROS Statement are negative. 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 History of Any Multi-Drug Resistant Organisms: None Reported Past Surgical History: Appendectomy, Section, Cholecystectomy, Hernia Repair, Tubal Ligation Additional Past Surgical History / Comment(s): 3 c/s's Past Anesthesia/Blood Transfusion Reactions: No Reported Reaction Past Psychological History: No Psychological Hx Reported Smoking Status: Former smoker Past Alcohol Use History: Occasional Past Drug Use History: None Reported - Past Family History Father Family Medical History: CVA/TIA, Hypertension Additional Family Medical History / Comment(s): still alive Mother Family Medical History: Cancer, Deep Vein Thrombosis (DVT), Hypertension Additional Family Medical History / Comment(s): BLOOD CLOTS FOR LEGS ON COUMADIN NOT ON IT AT THIS TIME, MOTHER STILL ALIVE, vulva cancer General Exam Limitations: no limitations General appearance: alert, in no apparent distress Head exam: Present: atraumatic, normocephalic, normal inspection Eye exam: Present: normal appearance, PERRL, EOMI. Absent: scleral icterus, conjunctival injection, periorbital swelling Neck exam: Present: normal inspection, full ROM. Absent: tenderness, meningismus, lymphadenopathy Respiratory exam: Present: normal lung sounds bilaterally. Absent: respiratory distress, wheezes, rales, rhonchi, stridor Cardiovascular Exam: Present: regular rate, normal rhythm, normal heart sounds. Absent: systolic murmur, diastolic murmur, rubs, gallop, clicks Extremities exam: Present: other (Left arm full range of motion neurovascular intact strength is equal bilaterally 5/5 radial pulses equal, there is no swelling, erythema discoloration equal warmth) Neurological exam: Present: reflexes normal. Absent: motor sensory deficit Skin exam: Present: warm, dry, intact, normal color. Absent: rash Course Vital Signs 04/25/20 11:03 Temperature 98.4 F Pulse Rate 75 Respiratory 18 Rate Blood Pressure 158/93 O2 Sat by Pulse 100 Oximetry Medical Decision Making - Medical Decision Making 44-year-old presented for left arm paresthesias. Patient's x-rays reviewed show degenerative changes, mild retrolisthesi, narrowing of the foramen. Patient's symptoms are consistent with cervical radiculopathy. She has no associated weakness. She'll be followed up with Dr. Choe for cervical spine evaluation. Return parameters were discussed. Disposition Clinical Impression: Cervical radiculopathy Disposition: HOME SELF-CARE Condition: Stable Instructions (If sedation given, give patient instructions): Cervical Radiculopathy (ED) Additional Instructions: Please return to the Emergency Department if symptoms worsen or any other concerns. Prescriptions: predniSONE 50 mg PO DAILY #5 tab Is patient prescribed a controlled substance at d/c from ED?: No Referrals: Donnie Quiroga DO [Primary Care Provider] - 1-2 days Gio Phillips DO [Doctor of Osteopathic Medicine] - 1-2 days Time of Disposition: 11:52
--- NOTE | 2020-04-25 11:44 | XR ---
Cervical spine history: Left arm paresthesia 7 views of the cervical spine Minimal retrolisthesis grade 1 C4-5. There is multilevel spondylosis, loss of disc height greatest at C4-5, C5-6 and C6-7. Prevertebral soft tissues are normal. There are facet arthropathy changes prese nt at the lower cervical spine. Cervical vertebral bodies show preserved height and bone mineralizati on. Spinal curvature noted in the thoracic spine. Cervical ribs are present C7. Oblique images show f oraminal encroachment at C4-5, C5-6 bilaterally. IMPRESSION: Degenerative disc disease, facet arthropathy.
[2020-04-26 10:05] VITALS: BP 158/93; PULSE 75; RESP 18; TEMP 98.4
== END 2020-04-25 12:08 | disposition home or self-care (01) ==
LOC: EC 10:57
DX: M47.22 Other spondylosis with radiculopathy, cervical region (principal); M48.02 Spinal stenosis, cervical region; J44.9 Chronic obstructive pulmonary disease, unspecified; I10 Essential (primary) hypertension; Z87.891 Personal history of nicotine dependence; Z79.899 Other long term (current) drug therapy; Z88.8 Allergy status to other drugs, medicaments and biological substances
CPT/HCPCS: 72050; 99284

== ENCOUNTER → 2020-09-19 | Outpatient (CLI) | payer BC ==
--- NOTE | 2020-09-20 14:48 | MM ---
Reason for exam: screening (asymptomatic). Last mammogram was performed 10 years and 7 months ago. History: Taking hormonal contraceptives for 18 years beginning at age 16. Physical Findings: A clinical breast exam by your physician is recommended on an annual basis and results should be correlated with mammographic findings. MG Screening Mammo w CAD Bilateral CC and MLO view(s) were taken. No prior studies available for comparison. The breast tissue is heterogeneously dense. This may lower the sensitivity of mammography. Finding: There are grouped/clustered, fine calcifications in the upper outer quadrant, posterior position of the right breast 9cm from the nipple. ASSESSMENT: Incomplete: need additional imaging evaluation, BI-RAD 0 RECOMMENDATION: Special view mammogram of the right breast. [facility] will attempt to contact patient to return for supplemental views.
== END | disposition home or self-care (01) ==
LOC: RADMAMWWP 16:08
PROVIDERS: ATTEND Family Medicine
DX: Z12.31 Encounter for screening mammogram for malignant neoplasm of breast (principal)
CPT/HCPCS: 77067

== ENCOUNTER → 2020-10-23 | Outpatient (CLI) | payer BC ==
--- NOTE | 2020-10-24 09:21 | MM ---
Reason for exam: additional evaluation requested from abnormal screening. Last mammogram was performed 1 month ago. History: Taking hormonal contraceptives for 18 years beginning at age 16. Physical Findings: Nurse did not find any significant physical abnormalities on exam. MG Work Up Mamm w CAD RT CC with magnification, LM with magnification, and LM view(s) were taken of the right breast. Prior study comparison: September 19, 2020, bilateral MG screening mammo w CAD. February 03, 2010, bilateral diagnostic digital mammog. The breast tissue is heterogeneously dense. This may lower the sensitivity of mammography. Finding: There are coarse heterogeneous, grouped/clustered calcifications in the upper outer quadrant, posterior position of the right breast persists on additional views. These results were verbally communicated with the patient and result sheet given to the patient on 10/23/20. ASSESSMENT: Suspicious, BI-RAD 4 RECOMMENDATION: Stereotactic core biopsy of the right breast. Called Dr. Quiroga's office with mammographic findings and has scheduled an appointment for the patient for 11/15/20 at 2:[address] Child. Biopsy scheduled for 11/29/20 at 8:00. PRELIMINARY REPORT CALLED AND FAXED TO DR. CHILD ON 10/24/20.
== END | disposition home or self-care (01) ==
LOC: RADMAMWWP 14:02
PROVIDERS: ATTEND Family Medicine
DX: R92.8 Other abnormal and inconclusive findings on diagnostic imaging of breast (principal)
CPT/HCPCS: 77065

== ENCOUNTER → 2020-11-15 | Outpatient (CLI) | payer BC ==
[2020-11-15 14:27] VITALS: BP 145/87; PULSE 79; RESP 18; TEMP 98.9
--- NOTE | 2020-11-15 14:40 | P.GSHP ---
History of Present Illness H&P Date: 11/15/20 Chief Complaint: abnormal right breast mammogram Vandana is a 45 year old female seen in consultation for Dr. Quiroga regarding a group of microcalcifications of concern in the right breast in the upper-outer quadrant. [place] [address] for which additional views of the right breast were requested. This revealed coarse heterogeneous calcifications in the upper outer quadrant. This was done on 1621. She had not had a mammogram in 10 years and this was done for that reason. She had not felt anything of concern prior to the mammogram. She does not feel any lumps masses or nodules now for which she is concerned. She is not complaining of any nipple discharge or skin changes. She has not given any history of any trauma or infection in either breast. She's never had surgery in either breast. Caffiene: 1 cup/day nicotine: vapes, stopped smoking 15 years ago, also smoked cigars harrison-bromine: several times/month Family History: maternal grandmother: throat cancer mother: volva cancer Hormonal History: menarche: 12 , breast fed; no, age at first : 15 periods regular BCP: 3 months Surgical history: 3 C-sections Ventral hernia Appendectomy Cholecystectomy Medical history: Hypertension COPD Social history: Nicotine: vapes all day alcohol: social monthly drugs: none - Constitutional Constitutional: Reports sweats - EENT Eyes: bilateral blurred vision Ears: deny: decreased hearing, tinnitus Ears, nose, mouth and throat: Reports headache, Denies sore throat - Breasts Breasts: bilateral: as per HPI - Cardiovascular Cardiovascular: Denies chest pain, Denies shortness of breath - Respiratory Comment: COPD - Gastrointestinal Gastrointestinal: Denies abdominal pain, Denies diarrhea, Denies nausea, Denies vomiting - Genitourinary (Female) Genitourinary: Denies dysuria, Denies hematuria - Menstruation Menstruation: Reports period normal - Musculoskeletal Comment: arthritis - Integumentary Integumentary: Denies pruritus, Denies rash - Neurological Neurological: Reports weakness, Denies numbness - Psychiatric Psychiatric: Denies anxiety, Denies depression - Endocrine Endocrine: Reports weight change, Denies fatigue - Hematologic/Lymphatic Comment: none - Allergic/Immunologic Allergic/Immunologic: Reports seasonal allergies 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 History of Any Multi-Drug Resistant Organisms: None Reported Past Surgical History: Appendectomy, Section, Cholecystectomy, Hernia Repair, Tubal Ligation Additional Past Surgical History / Comment(s): 3 c/s's Past Anesthesia/Blood Transfusion Reactions: No Reported Reaction Past Psychological History: No Psychological Hx Reported Past Alcohol Use History: Occasional Past Drug Use History: None Reported - Past Family History Father Family Medical History: CVA/TIA, Hypertension Additional Family Medical History / Comment(s): still alive Mother Family Medical History: Cancer, Deep Vein Thrombosis (DVT), Hypertension Additional Family Medical History / Comment(s): BLOOD CLOTS FOR LEGS ON COUMADIN NOT ON IT AT THIS TIME, MOTHER STILL ALIVE, vulva cancer Medications and Allergies Home Medications Medication Instructions Recorded Confirmed Type Albuterol Inhaler (Mhu) [Ventolin 1 - 2 puff INHALATION RT-Q6H PRN 06/03/14 11/15/20 History Hfa Inhaler (Mhu)] amLODIPine [Norvasc] 5 mg PO DAILY 01/20/18 11/15/20 History Valsartan/Hydrochlorothiazide 1 tab PO DAILY 11/21/18 11/15/20 History [Valsartan-Hctz 160-25 mg Tab] Ibuprofen 800 mg PO Q8H PRN 7 Days #21 tablet 08/02/19 11/15/20 Rx Dicyclomine [Bentyl] 20 mg PO QID #20 tablet 08/21/19 11/15/20 Rx Allergies Allergy/AdvReac Type Severity Reaction Status Date / Time lisinopril Allergy SWELLING,IT Verified 11/15/20 14:22 PINO Surgical - Exam BMI 28.2 - General no distress - Eyes normal ocular movement - ENT normal pinna, normal nares - Neck no masses, trachea midline - Respiratory normal respiratory effort, clear to auscultation - Cardiovascular Rhythm: regular Heart Sounds: normal: S1, S2 - Abdomen Abdomen: soft, non tender, no guarding, no rigid, no rebound - Integumentary normal turgor - Neurologic no disoriented, no combative - Musculoskeletal normal gait - Psychiatric oriented to time, oriented to person, oriented to place, speech is normal, memory intact breast exam: BRA: 36C inspection: grade 3 ptosis bilateral palpation: Right breast: Positional exam fibrocystic changes, no dominant masses or nodules of concern Right axilla: No adenopathy of concern Left breast: Multiple positional exam no dominant masses or nodules of concern Left axilla: No adenopathy of concern Results Mammogram results reviewed Assessment and Plan Assessment: Impression: 1. Radiographic abnormality right breast microcalcifications upper outer quadrant 2. Fibrocystic breast changes 3. Hypertension 4. COPD Plan: 1. Stereotactic core biopsy right breast 2. Medical management of medical conditions 3. Follow-up after stereotactic core biopsy Risks and benefits of procedure discussed with the patient she understands and wishes to proceed. Alternatives such as watchful waiting or open resection in the operating room I discussed but not recommended. The patient is scheduled for the near future. Cc: Dr. Quiroga Encounter 45 minutes, time spent reviewing records, on physical examination, and counseling.
== END | disposition home or self-care (01) ==
LOC: WWCWWP 14:11
PROVIDERS: ATTEND Surgery
DX: Z53.9 Procedure and treatment not carried out, unspecified reason (principal)

== ENCOUNTER → 2020-11-29 | Day surgery (SDC) | payer BC ==
--- NOTE | 2020-11-29 08:27 | P.PCN ---
Date of Procedure: 11/29/20 Preoperative Diagnosis: Microcalcifications of concern right breast upper outer quadrant posterior position Postoperative Diagnosis: Same Procedure(s) Performed: Stereotactic core biopsy microcalcifications of concern right breast Anesthesia: local Surgeon: Miriam Child Pathology: other (Breast tissue) Condition: stable Disposition: same day Indications for Procedure: Microcalcifications of concern right breast Operative Findings: Specimen radiograph reveals microcalcifications of concern Description of Procedure: Vandana is a 45 -year-old -[place] female who on mammogram was noted to have an area of microcalcifications of concern in the right breast in the upper outer quadrant region. Stereotactic core biopsy was recommended. Risks and benefits of the procedure were discussed with the patient as well as alternatives and the patient wished to proceed with the stereo biopsy. The patient was taken to the stereotactic core biopsy room. She was positioned prone on the lo-rad table. A printer's assistant film was obtained which revealed the microcalcifications of concern. A lateral to medial approach was utilized. The lesion was targeted. The breast was prepped using Betadine. 10 mL of 1% lidocaine were used to anesthetize the area of concern. A 9-gauge vacuum-assisted core rotating biopsy needle was driven to the correct coordinates. A prefire film was obtained which revealed the needle to be in the correct location. The needle was fired. Post fire film was obtained which also revealed the needle to be in the correct location. Samples were obtained from the 10:00 to the 2 o'clock position. 3 specimens were taken at the 12 o'clock position. Radiograph of the specimen revealed the lesion of concern had been adequately sampled with microcalcifications in the specimen. A secure jr Top-boardmarker was placed. Post placement radiograph revealed the marker in place but there was concern that it may have migrated slightly. We are awaiting completion mammogram. The specimen was sent to pathology. The patient will follow-up with Dr. Lopez in 1 week.
--- NOTE | 2020-11-29 09:26 | MM ---
Stereotactic core biopsy right breast. HISTORY: Microcalcifications. The calcifications in question within the right breast were targeted by the undersigned. The examination was performed by the surgeon. Specimen radiograph demonstrates numerous calcifications within the specimen submitted. Post procedural mammogram demonstrates appropriate deployment of radiopaque clip marker. The patient tolerated the procedure well and left the department in stable condition. Pathology results are pending. IMPRESSION: Successful stereotactic core biopsy right breast with pathology results pending. Pathology Results: Benign RIGHT BREAST, STEREOTACTIC CORE BIOPSY: Fibrocystic changes including cysts with calcifications, sclerosing adenosis, fibrosis and columnar cell change. Recommendation Follow up mammogram of the right breast in 6 months. RAQUEL
[2020-11-29 09:42] VITALS: BP 125/79; PULSE 59; RESP 16; TEMP 99
== END ==
LOC: RADMAMWWP 07:05
PROVIDERS: ATTEND Surgery
DX: N60.21 Fibroadenosis of right breast (principal); N60.31 Fibrosclerosis of right breast
CPT/HCPCS: 88305; 19081; A4648; J2001

== ENCOUNTER → 2020-12-06 | Outpatient (CLI) | payer BC ==
[2020-12-06 13:10] VITALS: BP 124/83; PULSE 79; RESP 18; TEMP 98.5
--- NOTE | 2020-12-06 13:10 | P.PN ---
Subjective Progress Note Date: 12/06/20 Principal diagnosis: sterotactic biopsy results Vandana is a 45 year old female status post right breast stereotactic core biopsy and . Pathology revealed fibrocystic changes no cancer or precancer. Calcifications were noted in the specimen and this was felt to be concordant. The patient tolerated the procedure without any difficulty. Objective - Constitutional General appearance: Present: average body habitus - EENT Eyes: Present: EOMI ENT: Present: hearing grossly normal - Neck Neck: Present: normal ROM - Respiratory Respiratory: bilateral: CTA - Cardiovascular Heart sounds: normal: S1, S2 - Integumentary Integumentary Comment(s): Biopsy site right breast clean and dry No evidence of infection or hematoma Assessment and Plan Assessment: Impression: Patient status post right breast stereotactic core biopsy benign and concordant Plan: right breast mammogram in 6 months with physician exam at that time Cc: Dr. Quiroga Encounter 10 minutes, time spent in reviewing medical records, examination and counselling;
== END | disposition home or self-care (01) ==
LOC: WWCWWP 12:51
PROVIDERS: ATTEND Surgery
DX: Z98.890 Other specified postprocedural states (principal); N60.11 Diffuse cystic mastopathy of right breast; R92.1 Mammographic calcification found on diagnostic imaging of breast

== ENCOUNTER → 2021-04-15 | Outpatient (CLI) | payer BC ==
--- NOTE | 2021-04-15 17:24 | XR ---
EXAMINATION TYPE: XR toes RT DATE OF EXAM: 04/15/2021 COMPARISON: NONE HISTORY: Pain in right great toe patient stubbed toe one week ago. FINDINGS: No evidence of fracture or dislocation of the right great toe. Minimal hallux valgus deform ity. The metatarsal, proximal and distal phalanges are in alignment of the first digit. Soft tissues are unremarkable. No radiographic the expected foreign body is seen. IMPRESSION: 1. Minimal hallux valgus deformity. No evidence of acute fracture or dislocation of the right great t oe.
== END | disposition home or self-care (01) ==
LOC: RADXRMAIN 11:50
PROVIDERS: ATTEND Family Medicine
DX: M20.11 Hallux valgus (acquired), right foot (principal)

== ENCOUNTER 2021-04-26 20:17 | Emergency (ER) | payer BC ==
[2021-04-26 20:30] VITALS: BP 154/87; PULSE 88; RESP 18; TEMP 98.1
[2021-04-26] MEDS ORDERED: MORPHINE SULFATE 4 MG/ML SYRINGE IM STA (20:46)
--- NOTE | 2021-04-26 21:29 | XR ---
Result: History: Pain. Comparison: None available. Technique: 3 views of the left knee. Findings: No acute fracture or dislocation is seen. The visualized osseous structures are in anatomic alignmen t. The joint spaces are preserved. There is no significant knee joint effusion. Atherosclerotic lui cifications seen. Impression: No acute osseous abnormality.
--- NOTE | 2021-04-26 21:50 | ED ---
Extremity Problem HPI - General Chief complaint: Extremity Problem,Nontraumatic Stated complaint: Lft knee pain Time Seen by Provider: 04/26/21 20:26 Source: patient, RN notes reviewed Mode of arrival: ambulatory Limitations: physical limitation - History of Present Illness Initial comments: Patient is a 45-year-old female that presents to emergency room complaining of left knee pain. She notes she does have a history of left knee issues. 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 She noted that the pain gets worse the more she uses and stands. She denied any recent injury or trauma. Denies any weakness numbness tingling decreased sensation in her lower extremity. - Related Data Home Medications Medication Instructions Recorded Confirmed Albuterol Inhaler (Mhu) [Ventolin 1 - 2 puff INHALATION RT-Q6H PRN 06/03/14 11/29/20 Hfa Inhaler (Mhu)] amLODIPine [Norvasc] 5 mg PO DAILY 01/20/18 11/29/20 Valsartan/Hydrochlorothiazide 1 tab PO DAILY 11/21/18 11/29/20 [Valsartan-Hctz 160-25 mg Tab] Cholecalciferol (Vitamin D3) 1 tab PO DAILY 11/29/20 11/29/20 [Vitamin D3 (4,000 Iu)] Iron 1 tab PO BID 11/29/20 11/29/20 Previous Rx's Medication Instructions Recorded Ibuprofen 800 mg PO Q8H PRN 7 Days #21 tablet 08/02/19 Ibuprofen [Motrin] 800 mg PO Q6HR #30 tab 04/26/21 Allergies Allergy/AdvReac Type Severity Reaction Status Date / Time lisinopril Allergy SWELLING,IT Verified 04/26/21 20:30 PINO Review of Systems ROS Statement: Those systems with pertinent positive or pertinent negative responses have been documented in the HPI. ROS Other: All systems not noted in ROS Statement are negative. 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 History of Any Multi-Drug Resistant Organisms: None Reported Past Surgical History: Appendectomy, Section, Cholecystectomy, Hernia Repair, Tubal Ligation Additional Past Surgical History / Comment(s): 3 c/s's Past Anesthesia/Blood Transfusion Reactions: No Reported Reaction Past Psychological History: No Psychological Hx Reported Smoking Status: Vaper Past Alcohol Use History: None Reported Past Drug Use History: None Reported - Past Family History Father Family Medical History: CVA/TIA, Hypertension Additional Family Medical History / Comment(s): still alive Mother Family Medical History: Deep Vein Thrombosis (DVT), Hypertension Additional Family Medical History / Comment(s): BLOOD CLOTS FOR LEGS ON COUMADIN NOT ON IT AT THIS TIME, MOTHER STILL ALIVE, vulva cancer General Exam Limitations: physical limitation General appearance: alert, in no apparent distress Head exam: Present: atraumatic, normocephalic, normal inspection Eye exam: Present: normal appearance, PERRL, EOMI. Absent: scleral icterus, conjunctival injection, periorbital swelling Neck exam: Present: normal inspection Respiratory exam: Present: normal lung sounds bilaterally. Absent: respiratory distress, wheezes, rales, rhonchi, stridor Cardiovascular Exam: Present: regular rate, normal rhythm, normal heart sounds. Absent: systolic murmur, diastolic murmur, rubs, gallop, clicks Right Knee exam: Present: normal inspection, tenderness (Over the medial aspect just inferior the patella). Absent: full ROM (secondary pain), abrasion, laceration, ecchymosis, deformity, crepitus, dislocation, erythema, effusion Neurological exam: Present: alert, oriented X3 Psychiatric exam: Present: normal affect, normal mood Skin exam: Present: warm, dry, intact, normal color. Absent: rash Course Vital Signs 04/26/21 20:28 Temperature 98.1 F Pulse Rate 88 Respiratory 18 Rate Blood Pressure 154/87 O2 Sat by Pulse 100 Oximetry Medical Decision Making - Medical Decision Making 45-year-old female complaining of left knee pain with no injury or trauma. X-ray of the left knee, 4 mg of morphine ordered. X-ray shows no acute osseous abnormality. Atherosclerotic calcification seen. Case discussed with Dr. Galarza, patient can discharge home with follow-up primary care and orthopedist as needed. Disposition Clinical Impression: Knee pain Disposition: HOME SELF-CARE Condition: Stable Instructions (If sedation given, give patient instructions): Knee Pain (ED) Additional Instructions: Please return to the Emergency Department if symptoms worsen or any other concerns. Follow-up with primary care as needed. Follow-up with orthopedist as needed. Rest ice compress elevate. Take Motrin as needed. Is patient prescribed a controlled substance at d/c from ED?: No Referrals: Donnie Quiroga DO [Primary Care Provider] - 1-2 days Time of Disposition: 21:50
== END 2021-04-26 22:11 | disposition home or self-care (01) ==
LOC: EC 20:17
DX: M25.562 Pain in left knee (principal); M79.89 Other specified soft tissue disorders; I10 Essential (primary) hypertension; J44.9 Chronic obstructive pulmonary disease, unspecified; M19.90 Unspecified osteoarthritis, unspecified site; F17.290 Nicotine dependence, other tobacco product, uncomplicated; Z79.51 Long term (current) use of inhaled steroids; Z79.1 Long term (current) use of non-steroidal anti-inflammatories (NSAID); Z88.8 Allergy status to other drugs, medicaments and biological substances
CPT/HCPCS: 73562; 99283; 96372; J2270

== ENCOUNTER → 2021-05-22 | Outpatient (CLI) | payer BC ==
[2021-05-22 13:39] LABS: Appearance,Urine Clear (Clear); Bilirubin,Urine Negative (Negative); Blood,Urine Large (Negative); Color,Urine Yellow; Glucose,Urine (UA) Negative (Negative); Ketones,Urine Negative (Negative); Leukocyte Esterase,Urine Small (Negative); Mucus,Urine Rare /hpf; Nitrite,Urine Negative (Negative); PH, Urine 6.5 (5.0-8.0); Protein,Urine Trace (Negative); RBC,Urine >182 /hpf (0-5); Specific Gravity,Urine 1.021 (1.001-1.035); Squamous Epithelial Cell,Urine 2 /hpf (0-4); WBC,Urine 8 /hpf (0-5)
[2021-05-22 19:35] LABS: Basophils # (A) 0.04 X 10*3/uL (0.00-0.10); Basophils % (A) 0.6 %; Eosinophils # (A) 0.11 X 10*3/uL (0.04-0.35); Eosinophils % (A) 1.7 %; HCT 36.1 % (37.2-46.3); HGB 11.1 g/dL (12.0-15.0); Lymphocytes # (A) 1.85 X 10*3/uL (0.90-5.00); Lymphocytes % (A) 28.2 %; MCH 30.3 pg (27.0-32.0); MCHC 30.7 g/dL (32.0-37.0); MCV 98.6 fL (80.0-97.0); Mean Platelet Volume 9.8 fL (9.5-12.2); Monocytes # (A) 0.35 X 10*3/uL (0.20-1.00); Monocytes % (A) 5.3 %; Neutrophils # (A) 4.18 X 10*3/uL (1.80-7.70); Neutrophils % (A) 63.9 %; Platelet Count 362 X 10*3/uL (140-440); RBC 3.66 X 10*6/uL (4.10-5.20); RDW 13.1 % (11.5-14.5); WBC 6.55 X 10*3/uL (4.50-10.00)
[2021-05-22 19:50] LABS: Hepatitis B Surface Antigen Non-Reactive (Non-Reactive); Hepatitis C IgG Antibody Non-Reactive (Non-Reactive)
[2021-05-22 20:12] LABS: Erythrocyte Sedimentation Rate 26 mm/Hr (0-20)
[2021-05-22 22:05] LABS: Protein, Total 7.4 g/dL (6.2-8.2)
[2021-05-22 23:18] LABS: ALT 9 U/L (8-44); AST 19 U/L (13-35); African American GFR (CKD) 101.8 (60.0-200.0); Albumin/Globulin Ratio 1.35 (1.60-3.17); Alkaline Phosphatase 71 U/L (41-126); C Reactive Protein <0.4 mg/dL (0.0-0.8); Calcium 9.8 mg/dL (8.7-10.3); Carbon Dioxide 24.8 mmol/L (21.6-31.8); Chloride 109 mmol/L (96-109); Creatine Kinase 87 U/L (26-186); Globulin 3.1 g/dL (1.6-3.3); Glucose 114 mg/dL (70-110); Non-African American GFR(CKD) 87.8 (60.0-200.0); Potassium 4.4 mmol/L (3.5-5.5); Rheumatoid Factor, Qnt <4 IU/mL (0-15); Sodium 142 mmol/L (135-145); Total Bilirubin 1.4 mg/dL (0.3-1.2); Total Protein 7.3 g/dL (6.2-8.2); Uric Acid 4.5 mg/dL (2.9-7.7)
[2021-05-23 03:50] LABS: Anti-DNA, DS unit <1.0 IU/mL; Anti-Smith Ab Interp NEGATIVE (NEGATIVE); Cardiolipin Ab IgG Interp NEGATIVE (NEGATIVE); Cardiolipin Ab IgM Interp NEGATIVE (NEGATIVE); Cardiolipin IgA Antibody <2.0 U/mL; Cardiolipin IgM Antibody <1.5 U/mL; Centromere Antibody 0.3 AI; Centromere Antibody Interp NEGATIVE (NEGATIVE); Cyclic Citrull Pep IgG Unit <0.5 U/mL; Cyclic Citrullinated Pep IgG NEGATIVE (NEGATIVE); DNA Double-Stranded NEGATIVE (NEGATIVE); Scleroderma SC-70 Ab <0.2 AI
[2021-05-23 08:17] LABS: Angiotensin-1 Converting Enz. 39 U/L (8-52)
[2021-05-23 08:55] LABS: HLA B27 NEGATIVE
[2021-05-23 13:41] LABS: Gamma Globulin 1.35 g/dL (0.70-1.50)
[2021-05-23 14:52] LABS: C-ANCA <1:20 Titer (<1:20)
== END | disposition home or self-care (01) ==
LOC: LABWHC1 11:47
PROVIDERS: ATTEND Internal Medicine Rheumatology
DX: E55.9 Vitamin D deficiency, unspecified (principal); E03.9 Hypothyroidism, unspecified; Z11.59 Encounter for screening for other viral diseases; M13.0 Polyarthritis, unspecified
CPT/HCPCS: 36415; 80053; 81001; 82164; 82306; 82550; 83520; 83883; 84165; 84439; 84443; 84550; 85025; 85652; 86038; 86140; 86147; 86160; 86162; 86200; 86225; 86235; 86255; 86334; 86431; 86803; 86812; 87340

== ENCOUNTER → 2021-06-03 | Outpatient (CLI) | payer BC ==
--- NOTE | 2021-06-03 15:04 | MM ---
Reason for exam: follow-up at short interval from prior study. Last mammogram was performed 7 months ago. History: Benign MG stereo VAD BX RT of the right breast, November 29, 2020. Taking hormonal contraceptives for 18 years beginning at age 16. Physical Findings: Nurse did not find any significant physical abnormalities on exam. MG Diagnostic Mammo RT w CAD CC and MLO view(s) were taken of the right breast. Prior study comparison: October 23, 2020, right breast MG work up mamm w CAD RT. September 19, 2020, bilateral MG screening mammo w CAD. The breast tissue is heterogeneously dense. This may lower the sensitivity of mammography. Previous mammotome biopsy in the right breast. There is no discrete abnormality. These results were verbally communicated with the patient and result sheet given to the patient on 06/03/21. ASSESSMENT: Benign, BI-RAD 2 RECOMMENDATION: Return to routine screening mammogram schedule for both breasts. Back on schedule. Manage patient on a clinical basis.
== END | disposition home or self-care (01) ==
LOC: RADMAMWWP 13:33
PROVIDERS: ATTEND Surgery
DX: R92.8 Other abnormal and inconclusive findings on diagnostic imaging of breast (principal)
CPT/HCPCS: 77065

== ENCOUNTER → 2021-08-05 | Outpatient (CLI) | payer BC ==
--- NOTE | 2021-08-05 16:00 | US ---
EXAMINATION TYPE: US venous doppler duplex LE BI DATE OF EXAM: 08/05/2021 3:37 PM COMPARISON: NONE CLINICAL HISTORY: 45-year-old female M25.561 M17.11 M25.562 M17.12 I80.9. SIDE PERFORMED: Bilateral TECHNIQUE: The lower extremity deep venous system is examined utilizing real time linear array sonog sandy with graded compression, doppler sonography and color-flow sonography. FINDINGS: VESSELS IMAGED: Common Femoral Vein Deep Femoral Vein Greater Saphenous Vein * Femoral Vein Popliteal Vein Small Saphenous Vein * Proximal Calf Veins Posterior tibial veins (* superficial vessels) Right Leg: Negative for DVT Left Leg: Negative for DVT IMPRESSION: No evidence for DVT within the bilateral lower extremities.
== END | disposition home or self-care (01) ==
LOC: RADUSWWP 15:35
PROVIDERS: ATTEND Orthopaedic Surgery
DX: M25.561 Pain in right knee (principal); M25.562 Pain in left knee
CPT/HCPCS: 93970

== ENCOUNTER 2021-10-14 16:55 | Emergency (ER) | payer BC ==
[2021-10-14 17:36] VITALS: RESP 18
[2021-10-14] MEDS ORDERED: DEXAMETHASONE SOD PHOSPHATE 10 MG/ML 1 ML VIAL IV STA (18:46)
[2021-10-14] MEDS ORDERED: diphenhydrAMINE 50 MG/ML 1 ML VIAL IVP STA (18:46)
[2021-10-14] MEDS ORDERED: SODIUM CHLORIDE 0.9% 1,000 ML IV STA (18:46)
[2021-10-14] MEDS ORDERED: KETOROLAC 15 MG/ML 1 ML VIAL IVP STA (18:46)
--- NOTE | 2021-10-14 18:55 | ED ---
General Adult HPI - General Chief complaint: Headache Stated complaint: headaches Time Seen by Provider: 10/14/21 18:40 Source: patient, family, RN notes reviewed, old records reviewed Mode of arrival: ambulatory - History of Present Illness Initial comments: 46-year-old female presents to the emergency room with complaints of diffuse headache that started yesterday before going to work. She states that she took some Motrin and a nap with some relief but then it came back. Patient states that she has had similar headaches in the past. She denies any numbness or weakness. She denies any nausea vomiting diarrhea. She denies any visual disturbances. She does have history of hypertension, asthma, COPD and osteoarthritis and Jackeline's syndrome. She states that she takes Vasotec and Norvasc for her blood pressure but she sometimes forgets to take them. -: days(s) (1) Location: head (diffuse ) Radiation: non-radiation Severity scale (1-10): 8 Quality: aching Consistency: constant Improves with: medication (motrin), rest Worsens with: none Associated Symptoms: denies other symptoms - Related Data Home Medications Medication Instructions Recorded Confirmed Albuterol Inhaler (Mhu) [Ventolin 1 - 2 puff INHALATION RT-Q6H PRN 06/03/14 11/29/20 Hfa Inhaler (Mhu)] amLODIPine [Norvasc] 5 mg PO DAILY 01/20/18 11/29/20 Valsartan/Hydrochlorothiazide 1 tab PO DAILY 11/21/18 11/29/20 [Valsartan-Hctz 160-25 mg Tab] Cholecalciferol (Vitamin D3) 1 tab PO DAILY 11/29/20 11/29/20 [Vitamin D3 (4,000 Iu)] Iron 1 tab PO BID 11/29/20 11/29/20 Previous Rx's Medication Instructions Recorded Ibuprofen 800 mg PO Q8H PRN 7 Days #21 tablet 08/02/19 Ibuprofen [Motrin] 800 mg PO Q6HR #30 tab 04/26/21 Allergies Allergy/AdvReac Type Severity Reaction Status Date / Time lisinopril Allergy SWELLING,IT Verified 10/14/21 17:40 PINO Review of Systems ROS Statement: Those systems with pertinent positive or pertinent negative responses have been documented in the HPI. ROS Other: All systems not noted in ROS Statement are negative. 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 History of Any Multi-Drug Resistant Organisms: None Reported Past Surgical History: Appendectomy, Section, Cholecystectomy, Hernia Repair, Tubal Ligation Additional Past Surgical History / Comment(s): 3 c/s's Past Anesthesia/Blood Transfusion Reactions: No Reported Reaction Past Psychological History: No Psychological Hx Reported Smoking Status: Vaper Past Alcohol Use History: None Reported Past Drug Use History: None Reported - Past Family History Father Family Medical History: CVA/TIA, Hypertension Additional Family Medical History / Comment(s): still alive Mother Family Medical History: Deep Vein Thrombosis (DVT), Hypertension Additional Family Medical History / Comment(s): BLOOD CLOTS FOR LEGS ON COUMADIN NOT ON IT AT THIS TIME, MOTHER STILL ALIVE, vulva cancer General Exam Limitations: no limitations General appearance: alert, in no apparent distress Head exam: Present: atraumatic, normocephalic, normal inspection Eye exam: Present: normal appearance, PERRL, EOMI. Absent: scleral icterus, conjunctival injection, nystagmus, periorbital swelling, periorbital tenderness Pupils: Present: normal accommodation ENT exam: Present: normal exam, normal oropharynx, mucous membranes moist, other (Large right tonsil exudate or erythema noted patient states chronic) Neck exam: Present: normal inspection, full ROM. Absent: tenderness, meningismus, lymphadenopathy, thyromegaly Respiratory exam: Present: normal lung sounds bilaterally. Absent: respiratory distress, wheezes, rales, rhonchi, stridor, chest wall tenderness, accessory muscle use, decreased breath sounds, prolonged expiratory Cardiovascular Exam: Present: regular rate, normal rhythm, normal heart sounds. Absent: systolic murmur, diastolic murmur, rubs, gallop, clicks, JVD GI/Abdominal exam: Present: soft, normal bowel sounds. Absent: distended, tenderness, guarding, rebound, rigid Extremities exam: Present: normal inspection, full ROM, normal capillary refill. Absent: tenderness, pedal edema, joint swelling, calf tenderness Back exam: Present: normal inspection, full ROM. Absent: tenderness, CVA tenderness (R), CVA tenderness (L), paraspinal tenderness, vertebral tenderness, rash noted Neurological exam: Present: alert, oriented X3, CN II-XII intact Expanded Patient oriented to: Present: person, place, time Speech: Present: fluid speech Cranial nerves: EOM's Intact: Normal, Gag Reflex: Normal, Tongue Deviation: Normal Motor strength exam: RUE: 5, LUE: 5, RLE: 5, LLE: 5 Eye Response: (4) open spontaneously Motor Response: (6) obeys commands Verbal Response: (5) oriented Thu Total: 15 Psychiatric exam: Present: normal affect, normal mood Skin exam: Present: warm, dry, intact, normal color. Absent: rash, cyanosis, diaphoretic, erythema, petechiae, pallor, mottled Course Vital Signs 10/14/21 10/14/21 17:29 19:47 Temperature 99.9 F H 99.0 F Pulse Rate 75 78 Respiratory 18 18 Rate Blood Pressure 162/93 158/90 O2 Sat by Pulse 97 97 Oximetry Medical Decision Making - Medical Decision Making 46-year-old female presents with complaints of diffuse headache that started yesterday before going to work. She states that she took some Motrin and a nap with some relief but then it came back. This similar headaches in the past. She has no visual disturbances, no focal neurological deficits. She is ambulatory with steady gait. Pain was relieved after 500 mL of normal saline, Toradol, Benadryl and Solu-Medrol. She is Covid negative. She states that she is ready to go home. She is directed to continue taking her blood pressure medication as prescribed. Return to the emergency room with any new or worsening symptoms and follow up with her PCP next week. Case discussed with Dr. Arce - Lab Data Lab Results 10/14/21 Range/Units 17:36 Coronavirus (PCR) Not Detected (Not Detectd) Disposition Clinical Impression: Headache Disposition: HOME SELF-CARE Condition: Good Instructions (If sedation given, give patient instructions): Acute Headache (ED) Additional Instructions: Continue taking your blood pressure medication as prescribed. Follow-up with your primary care doctor this week. Return to the emergency room with any new or worsening symptoms. Is patient prescribed a controlled substance at d/c from ED?: No Referrals: Donnie Quiroga DO [Primary Care Provider] - 1-2 days Time of Disposition: 19:37
[2021-10-14 19:49] VITALS: BP 158/90; PULSE 78; TEMP 99
== END 2021-10-14 19:48 | disposition home or self-care (01) ==
LOC: EC 16:55
DX: R51.9 Headache, unspecified (principal); I10 Essential (primary) hypertension; J44.9 Chronic obstructive pulmonary disease, unspecified; F17.290 Nicotine dependence, other tobacco product, uncomplicated; Z79.899 Other long term (current) drug therapy; Z79.84 Long term (current) use of oral hypoglycemic drugs
CPT/HCPCS: 96374; 96375; 96361; 99284; 87635; J1200; J1100; J1885

== ENCOUNTER → 2021-10-20 | Outpatient (CLI) | payer BC ==
--- NOTE | 2021-10-20 12:31 | MM ---
Reason for exam: screening (asymptomatic). Last mammogram was performed 5 months ago. History: Benign MG stereo VAD BX RT of the right breast, November 29, 2020. Took hormonal contraceptives for 18 years beginning at age 16. Physical Findings: A clinical breast exam by your physician is recommended on an annual basis and results should be correlated with mammographic findings. MG Screening Mammo w CAD Bilateral CC and MLO view(s) were taken. Prior study comparison: June 03, 2021, right breast MG diagnostic mammo RT w CAD. October 23, 2020, right breast MG work up mamm w CAD RT. The breast tissue is heterogeneously dense. This may lower the sensitivity of mammography. Previous mammotome biopsy in the right breast. There is no discrete abnormality. ASSESSMENT: Benign, BI-RAD 2 RECOMMENDATION: Routine screening mammogram of both breasts in 1 year.
== END | disposition home or self-care (01) ==
LOC: RADMAMWWP 10:01
PROVIDERS: ATTEND Surgery
DX: Z12.31 Encounter for screening mammogram for malignant neoplasm of breast (principal)
CPT/HCPCS: 77067

== ENCOUNTER 2021-10-30 02:53 | Emergency (ER) | payer BC ==
[2021-10-30 02:59] VITALS: BP 157/91; PULSE 80; TEMP 98.1
--- NOTE | 2021-10-30 03:13 | ED ---
Recheck HPI - General Chief Complaint: Recheck/Abnormal Lab/Rx Stated Complaint: Covid test Time Seen by Provider: 10/30/21 03:06 Source: patient, family, RN notes reviewed, old records reviewed Mode of arrival: ambulatory Limitations: no limitations - History of Present Illness Initial Comments: This is a 46-year-old female to the emergency department today. Patient is presented today for evaluation regarding positive outpatient oral at home test for coronavirus. 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 Is not vaccinated. Patient's complaining of right nose has history of asthma COPD hypertension. MD Complaint: abnormal lab (concern for COVID) -: hour(s) Returns Today for: other (runny nose) Symptoms Since Prior Visit: worsening pain, fever Associated Symptoms: none Treatments Prior to Arrival: cold therapy, other medications - Related Data Home Medications Medication Instructions Recorded Confirmed Albuterol Inhaler (Mhu) [Ventolin 1 - 2 puff INHALATION RT-Q6H PRN 06/03/14 11/29/20 Hfa Inhaler (Mhu)] amLODIPine [Norvasc] 5 mg PO DAILY 01/20/18 11/29/20 Valsartan/Hydrochlorothiazide 1 tab PO DAILY 11/21/18 11/29/20 [Valsartan-Hctz 160-25 mg Tab] Cholecalciferol (Vitamin D3) 1 tab PO DAILY 11/29/20 11/29/20 [Vitamin D3 (4,000 Iu)] Iron 1 tab PO BID 11/29/20 11/29/20 Previous Rx's Medication Instructions Recorded Ibuprofen 800 mg PO Q8H PRN 7 Days #21 tablet 08/02/19 Ibuprofen [Motrin] 800 mg PO Q6HR #30 tab 04/26/21 Allergies Allergy/AdvReac Type Severity Reaction Status Date / Time lisinopril Allergy SWELLING,IT Verified 10/30/21 02:59 PINO Review of Systems ROS Statement: Those systems with pertinent positive or pertinent negative responses have been documented in the HPI. ROS Other: All systems not noted in ROS Statement are negative. 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 History of Any Multi-Drug Resistant Organisms: None Reported Past Surgical History: Appendectomy, Section, Cholecystectomy, Hernia Repair, Tubal Ligation Additional Past Surgical History / Comment(s): 3 c/s's Past Anesthesia/Blood Transfusion Reactions: No Reported Reaction Past Psychological History: No Psychological Hx Reported Smoking Status: Vaper Past Alcohol Use History: None Reported Past Drug Use History: None Reported - Past Family History Father Family Medical History: CVA/TIA, Hypertension Additional Family Medical History / Comment(s): still alive Mother Family Medical History: Deep Vein Thrombosis (DVT), Hypertension Additional Family Medical History / Comment(s): BLOOD CLOTS FOR LEGS ON COUMADIN NOT ON IT AT THIS TIME, MOTHER STILL ALIVE, vulva cancer General Exam Limitations: no limitations General appearance: alert, in no apparent distress Head exam: Present: atraumatic, normocephalic, normal inspection Eye exam: Present: normal appearance, PERRL, EOMI. Absent: scleral icterus, conjunctival injection, periorbital swelling ENT exam: Present: normal exam, mucous membranes moist Neck exam: Present: normal inspection. Absent: tenderness, meningismus, lymphadenopathy Respiratory exam: Present: normal lung sounds bilaterally. Absent: respiratory distress, wheezes, rales, rhonchi, stridor Cardiovascular Exam: Present: regular rate, normal rhythm, normal heart sounds. Absent: systolic murmur, diastolic murmur, rubs, gallop, clicks GI/Abdominal exam: Present: soft, normal bowel sounds. Absent: distended, tenderness, guarding, rebound, rigid Extremities exam: Present: normal inspection, full ROM, normal capillary refill. Absent: tenderness, pedal edema, joint swelling, calf tenderness Back exam: Present: normal inspection Neurological exam: Present: alert, oriented X3, CN II-XII intact Psychiatric exam: Present: normal affect, normal mood Skin exam: Present: warm, dry, intact, normal color. Absent: rash Course Vital Signs 10/30/21 10/30/21 02:53 03:18 Temperature 98.1 F Pulse Rate 80 Respiratory 22 16 Rate Blood Pressure 157/91 O2 Sat by Pulse 100 Oximetry - Reevaluation(s) Reevaluation #1: 10/30/21 03:31 medical record is reviewed Reevaluation #2: 10/30/21 03:31 patient is relatively asympromatic Reevaluation #3: 10/30/21 03:32 patient is informed of results and questions are answered Medical Decision Making - Medical Decision Making 38 female to the emergency department for evaluation patient is positive for coronavirus here in the ER given return precautions and parameters and now can be discharged home - Lab Data Lab Results 10/30/21 Range/Units 03:17 Coronavirus (PCR) Detected A (Not Detectd) Disposition Clinical Impression: Coronavirus infection Disposition: HOME SELF-CARE Condition: Good Instructions (If sedation given, give patient instructions): Coronavirus Disease 2019 (COVID-19) Is patient prescribed a controlled substance at d/c from ED?: No Referrals: Donnie Quiroga DO [Primary Care Provider] - 1-2 days
[2021-10-30 03:18] VITALS: RESP 16
== END 2021-10-30 04:14 | disposition home or self-care (01) ==
LOC: EC 02:53
DX: U07.1 COVID-19 (principal); J44.9 Chronic obstructive pulmonary disease, unspecified; F17.290 Nicotine dependence, other tobacco product, uncomplicated; I10 Essential (primary) hypertension; M19.90 Unspecified osteoarthritis, unspecified site; Z88.8 Allergy status to other drugs, medicaments and biological substances; Z79.899 Other long term (current) drug therapy
CPT/HCPCS: 87635; 99283

== ENCOUNTER 2022-03-03 07:46 | Emergency (ER) | payer BC ==
[2022-03-03 07:50] VITALS: TEMP 98.1
--- NOTE | 2022-03-03 08:38 | XR ---
EXAMINATION TYPE: XR chest 2V DATE OF EXAM: 03/03/2022 COMPARISON: 10/08/2013 HISTORY: 46-year-old female cough and chest pain TECHNIQUE: PA and lateral views FINDINGS: Heart normal size. Aorta and pulmonary vasculature within normal limits. No consolidation or pleural effusion. IMPRESSION: No focal infiltrate seen.
[2022-03-03 09:11] VITALS: BP 149/88; PULSE 62; RESP 18
[2022-03-03] MEDS ORDERED: dexAMETHasone 4 MG TAB PO STA (09:12)
--- NOTE | 2022-03-03 09:15 | ED ---
General Adult HPI - General Chief complaint: Upper Respiratory Infection Stated complaint: Weakness/Bodyaches Time Seen by Provider: 03/03/22 08:50 Source: patient Mode of arrival: ambulatory Limitations: no limitations - History of Present Illness Initial comments: Dictation was produced using PEER dictation software. please excuse any grammatical, word or spelling errors. Chief Complaint: 46-year-old female presents with 3-4 days of cough, body aches History of Present Illness: 38-year-old female presents emergency department for 3-4 days of cough and body aches. Patient states she's been having symptoms since Wednesday of last week. States that her cough is nonproductive. Denies any fever. No chills. No obvious sick contacts. Patient has history of asthma. Denies any rhinorrhea or sore throat. She has had some mild bouts of nausea and diarrhea. The ROS documented in this emergency department record has been reviewed and confirmed by me. Those systems with pertinent positive or negative responses have been documented in the HPI. All other systems are other negative and/or noncontributory. PHYSICAL EXAM: General Impression: Alert and oriented x3, not in acute distress HEENT: Normocephalic atraumatic, extra-ocular movements intact, pupils equal and reactive to light bilaterally, mucous membranes moist. Cardiovascular: Heart regular rate and rhythm Chest: Able to complete full sentences, no retractions, no tachypnea, lungs clear to auscultation bilaterally Abdomen: abdomen soft, non-tender, non-distended, no organomegaly Musculoskeletal: Pulses present and equal in all extremities, no peripheral edema Motor: no focal deficits noted Neurological: CN II-XII grossly intact, no focal motor or sensory deficits noted Skin: Intact with no visualized rashes Psych: Normal affect and mood ED course: Patient is a 46-year-old female presents to the emergency department for viral type symptoms. Patient has had symptoms for the last 3-4 days. Vital signs upon arrival are within acceptable limits. Coag tests and influenza test was ordered in the waiting room on be unremarkable. Chest x-ray also ordered from triage nurse with no apparent findings. Patient's well-appearing at the bedside. Physical examination is benign. Given a dose of Decadron discharged told to follow-up with primary care doctor. - Related Data Home Medications Medication Instructions Recorded Confirmed Albuterol Inhaler (Mhu) [Ventolin 1 - 2 puff INHALATION RT-Q6H PRN 06/03/14 11/29/20 Hfa Inhaler (Mhu)] amLODIPine [Norvasc] 5 mg PO DAILY 01/20/18 11/29/20 Valsartan/Hydrochlorothiazide 1 tab PO DAILY 11/21/18 11/29/20 [Valsartan-Hctz 160-25 mg Tab] Cholecalciferol (Vitamin D3) 1 tab PO DAILY 11/29/20 11/29/20 [Vitamin D3 (4,000 Iu)] Iron 1 tab PO BID 11/29/20 11/29/20 Previous Rx's Medication Instructions Recorded Ibuprofen 800 mg PO Q8H PRN 7 Days #21 tablet 08/02/19 Ibuprofen [Motrin] 800 mg PO Q6HR #30 tab 04/26/21 Azithromycin [Zithromax Z-pack] 0 mg PO DIRECTED #6 tab 03/03/22 Allergies Allergy/AdvReac Type Severity Reaction Status Date / Time lisinopril Allergy SWELLING,IT Verified 03/03/22 07:50 PINO Review of Systems ROS Statement: Those systems with pertinent positive or pertinent negative responses have been documented in the HPI. ROS Other: All systems not noted in ROS Statement are negative. 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 History of Any Multi-Drug Resistant Organisms: None Reported Past Surgical History: Appendectomy, Section, Cholecystectomy, Hernia Repair, Tubal Ligation Additional Past Surgical History / Comment(s): 3 c/s's Past Anesthesia/Blood Transfusion Reactions: No Reported Reaction Past Psychological History: No Psychological Hx Reported Smoking Status: Vaper Past Alcohol Use History: None Reported Past Drug Use History: None Reported - Past Family History Father Family Medical History: CVA/TIA, Hypertension Additional Family Medical History / Comment(s): still alive Mother Family Medical History: Deep Vein Thrombosis (DVT), Hypertension Additional Family Medical History / Comment(s): BLOOD CLOTS FOR LEGS ON COUMADIN NOT ON IT AT THIS TIME, MOTHER STILL ALIVE, vulva cancer General Exam Limitations: no limitations Course Vital Signs 03/03/22 03/03/22 03/03/22 07:48 09:08 09:10 Temperature 98.1 F Pulse Rate 77 62 Respiratory 18 20 18 Rate Blood Pressure 171/93 149/88 O2 Sat by Pulse 100 97 Oximetry Medical Decision Making - Lab Data Lab Results 03/03/22 03/03/22 Range/Units 08:01 08:01 Coronavirus (PCR) Not Detected (Not Detectd) Influenza Type A RNA Not Detected (Not Detectd) Influenza Type B (PCR) Not Detected (Not Detectd) Disposition Clinical Impression: Viral syndrome Disposition: HOME SELF-CARE Condition: Good Instructions (If sedation given, give patient instructions): Upper Respiratory Infection (ED) Additional Instructions: Wait another 3-4 days to see if your symptoms improve. If your symptoms do not improve begin taking Zithromax pack. otherwise follow up with your PCP Prescriptions: Azithromycin [Zithromax Z-pack] 0 mg PO DIRECTED #6 tab Is patient prescribed a controlled substance at d/c from ED?: No Referrals: Donnie Quiroga, [Primary Care Provider] - 1-2 days
== END 2022-03-03 09:22 | disposition home or self-care (01) ==
LOC: EC 07:46
DX: B34.9 Viral infection, unspecified (principal); J44.9 Chronic obstructive pulmonary disease, unspecified; F17.290 Nicotine dependence, other tobacco product, uncomplicated; I10 Essential (primary) hypertension; Z88.8 Allergy status to other drugs, medicaments and biological substances; Z79.899 Other long term (current) drug therapy; Z20.822 Contact with and (suspected) exposure to COVID-19
CPT/HCPCS: 93005; 87502; 87635; 71046; 99283; J8540

== ENCOUNTER 2022-11-04 13:15 | Emergency (ER) | payer BC, OTHER ==
[2022-11-04] MEDS ORDERED: HYDROmorphone 0.5 MG/0.5 ML SYRINGE IVP STA (14:34)
[2022-11-04] MEDS ORDERED: ONDANSETRON 4 MG/2 ML VIAL IVP STA (14:34)
[2022-11-04 14:42] LABS: Basophils # (A) 0.1 k/uL (0-0.2); Basophils % (A) 1 %; Eosinophils # (A) 0.2 k/uL (0-0.7); Eosinophils % (A) 2 %; HCT 39.2 % (34.0-46.0); Lymphocytes # (A) 2.4 k/uL (1.0-4.8); Lymphocytes % (A) 22 %; MCH 31.6 pg (25.0-35.0); MCHC 33.1 g/dL (31.0-37.0); MCV 95.6 fL (80.0-100.0); Monocytes # (A) 0.3 k/uL (0-1.0); Monocytes % (A) 3 %; Neutrophils # (A) 7.6 k/uL (1.3-7.7); Neutrophils % (A) 72 %; Platelet Count 374 k/uL (150-450); RBC 4.11 m/uL (3.80-5.40); RDW 13.7 % (11.5-15.5); WBC 10.7 k/uL (3.8-10.6)
[2022-11-04 14:55] LABS: Albumin 4.4 g/dL (3.5-5.0); Potassium 3.8 mmol/L (3.5-5.1); Total Bilirubin 1.1 mg/dL (0.2-1.3)
--- NOTE | 2022-11-04 15:17 | US ---
EXAMINATION TYPE: US transvaginal DATE OF EXAM: 11/04/2022 COMPARISON: NONE CLINICAL HISTORY: DUB. DUB TECHNIQUE: Transvaginal (TV EXAM MEASUREMENTS: Uterus: 8.5 x 6.6 x 9.4 cm Endometrial Stripe: 0.7 cm 1. Uterus: Anteverted Heterogenous suggestive 6.7 x 6.0 x 7.3 cm. 2. Endometrium: wnl 3. Right Ovary: Obscured by overlying bowel gas 4. Left Ovary: Obscured by overlying bowel gas 5. Bilateral Adnexa: wnl 6. Posterior cul-de-sac: wnl IMPRESSION: 1. Endometrium is within normal limits for thickness. 2. No evidence for acute process. 3. Fibroid uterus suggested.
--- NOTE | 2022-11-04 16:30 | ED ---
Female Urogenital HPI - General Chief complaint: Vaginal Bleeding Stated complaint: Vaginal Blood Clots/Excessive Bleeding,Back Pain Time Seen by Provider: 11/04/22 14:05 Source: patient Mode of arrival: ambulatory Limitations: no limitations - History of Present Illness Initial comments: Patient is a 47-year-old female who presents to the emergency department for evaluation of vaginal bleeding. Patient states for the past year she has had very irregular periods that are heavy. Prior to this year patient reports regular monthly periods with moderate flow. Her menstrual periods are now longer in duration, usually around 7 days. Patient concerned with the amount of bleeding during her current period. States she soaks 8 pads a day typically and reports 3-4 days the golf ball sized clots. Patient reports severe back pain which usually occurs during her menstrual periods. No injury. No numbness and tingling in the legs, groin, buttock region. No loss of bowel or bladder incontinence. Patient states today she has felt a little lightheaded with nausea. No vomiting, fever, chills. She denies syncope. Denies history of anemia. 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 Reports normal Pap smear last year. - Related Data Home Medications Medication Instructions Recorded Confirmed Albuterol Inhaler [Ventolin Hfa 1 - 2 puff INHALATION RT-Q6H PRN 06/03/14 11/04/22 Inhaler] amLODIPine [Norvasc] 5 mg PO DIRECTED 01/20/18 11/04/22 Levothyroxine Sodium [Synthroid] 25 mcg PO DIRECTED 11/04/22 11/04/22 Valsartan/Hydrochlorothiazide 1 tab PO DIRECTED 11/04/22 11/04/22 [Valsartan-Hctz 320-25 mg Tab] Previous Rx's Medication Instructions Recorded Ibuprofen [Motrin] 800 mg PO Q8HR PRN #30 tab 11/04/22 Ondansetron Odt [Zofran Odt] 4 mg PO Q8HR PRN #10 tab 11/04/22 Allergies Allergy/AdvReac Type Severity Reaction Status Date / Time lisinopril Allergy SWELLING,IT Verified 11/04/22 13:31 PINO Review of Systems ROS Statement: Those systems with pertinent positive or pertinent negative responses have been documented in the HPI. ROS Other: All systems not noted in ROS Statement are negative. 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 History of Any Multi-Drug Resistant Organisms: None Reported Past Surgical History: Appendectomy, Section, Cholecystectomy, Hernia Repair, Tubal Ligation Additional Past Surgical History / Comment(s): 3 c/s's Past Anesthesia/Blood Transfusion Reactions: No Reported Reaction Past Psychological History: No Psychological Hx Reported Smoking Status: Vaper Past Alcohol Use History: None Reported Past Drug Use History: None Reported - Past Family History Father Family Medical History: CVA/TIA, Hypertension Additional Family Medical History / Comment(s): still alive Mother Family Medical History: Deep Vein Thrombosis (DVT), Hypertension Additional Family Medical History / Comment(s): BLOOD CLOTS FOR LEGS ON COUMADIN NOT ON IT AT THIS TIME, MOTHER STILL ALIVE, vulva cancer General Exam Limitations: no limitations General appearance: alert, in no apparent distress Eye exam: Present: normal appearance, PERRL, EOMI. Absent: scleral icterus, conjunctival injection, periorbital swelling Respiratory exam: Present: normal lung sounds bilaterally. Absent: respiratory distress, wheezes, rales, rhonchi, stridor Cardiovascular Exam: Present: regular rate, normal rhythm, normal heart sounds. Absent: systolic murmur, diastolic murmur, rubs, gallop, clicks Neurological exam: Present: alert, oriented X3, CN II-XII intact Psychiatric exam: Present: normal affect, normal mood Skin exam: Present: warm, dry, intact, normal color. Absent: rash Course Vital Signs 11/04/22 11/04/22 11/04/22 13:28 14:31 14:37 Temperature 98.2 F 97.8 F Pulse Rate 90 Respiratory 18 Rate Blood Pressure 116/84 O2 Sat by Pulse 99 99 Oximetry 11/04/22 11/04/22 11/04/22 15:00 16:00 16:30 Temperature 98.7 F Pulse Rate 86 Respiratory 16 Rate Blood Pressure 134/88 135/82 125/91 O2 Sat by Pulse 100 99 97 Oximetry Medical Decision Making - Medical Decision Making Was pt. sent in by a medical professional or institution (, PA, SUPERVISOR OPERATIONS, urgent care, hospital, or usp...) When possible be specific @ -No Did you speak to anyone other than the patient for history (EMS, parent, family, police, friend...)? What history was obtained from this source @ -No Did you review nursing and triage notes (agree or disagree)? Why? @ -I reviewed and agree with nursing and triage notes Were old charts reviewed (outside hosp., previous admission, EMS record, old EKG, old radiological studies, urgent care reports/EKG's, usp records)? Report findings @ -No old charts were reviewed Differential Diagnosis (chest pain, altered mental status, abdominal pain women, abdominal pain men, vaginal bleeding, weakness, fever, dyspnea, syncope, headache, dizziness, GI bleed, back pain, seizure, CVA, palpatations, mental health)? @ Differential Vaginal Bleeding: Spontaneous , threatened , molar , ectopic , bloody show, incompetent cervix, abruptioplacenta, placenta previa, uterine rupture, dysfunctional uterine bleeding, hemorrhage, uterine fibroids, this is not meant to be an all-inclusive list. EKG interpreted by me (3pts min.). @ -As above X-rays interpreted by me (1pt min.). @ -None done CT interpreted by me (1pt min.). @ -None done U/S interpreted by me (1pt. min.). @ -No. Transvaginal ultrasound reveals no acute process with fibroid uterus suggested measuring 6.76.07.3. Endometrial stripe is 0.7 cm What testing was considered but not performed or refused? (CT, X-rays, U/S, labs)? Why? @ -None What meds were considered but not given or refused? Why? @ -None Did you discuss the management of the patient with other professionals (professionals i.e. , PA, SUPERVISOR OPERATIONS, lab, RT, psych nurse, rn social work, sewer connector, teacher, corporate compliance officer, pillowcase maker)? Give summary @ -No Was smoking cessation discussed for >3mins.? @ -No Was critical care preformed (if so, how long)? @ -No Were there social determinants of health that impacted care today? How? (Homelessness, low income, unemployed, alcoholism, drug addiction, transp ortation, low edu. Level, literacy, decrease access to med. care, fpc, rehab)? @ -No Was there de-escalation of care discussed even if they declined (Discuss DNR or withdrawal of care, Hospice)? DNR status @ -No What co-morbidities impacted this encounter? (DM, HTN, Smoking, COPD, CAD, Cancer, CVA, ARF, Chemo, Hep., AIDS, mental health diagnosis, sleep apnea, morbid obesity)? @ -None Was patient admitted / discharged? Hospital course, mention meds given and route, prescriptions, significant lab abnormalities, going to OR and other pertinent info. @ -This is a 47-year-old female presenting with dysfunctional uterine bleeding.Vitals normal. Laboratory studies obtained. There is very minimal leukocytosis at 10.7. Hemoglobin is normal at 13.0. Transvaginal ultrasound reveals no acute process with fibroid uterus suggested measuring 6.76.07.3. Endometrial stripe is 0.7 cm. Results discussed with patient. Pain controlled. Patient in stable medical condition for discharge with strict return parameters. She will be referred to cook station for further evaluation and management.Discharged with motrin 800 and zofran. Undiagnosed new problem with uncertain prognosis? @ -No Drug Therapy requiring intensive monitoring for toxicity (Heparin, Nitro, Insulin, Cardizem)? @ -No Were any procedures done? @ -No Diagnosis/symptom? @ -dysfunctional uterine bleeding, uterine fibroid Acute, or Chronic, or Acute on Chronic? @ -acute Uncomplicated (without systemic symptoms) or Complicated (systemic symptoms)? @ -uncomplicated Side effects of treatment? @ -No Exacerbation, Progression, or Severe Exacerbation? @ -No] Poses a threat to life or bodily function? How? (Chest pain, USA, CT, pneumonia, PE, COPD, DKA, ARF, appy, cholecystitis, CVA, Diverticulitis, Homicidal, Suicidal, threat to staff... and all critical care pts) @ -[No] Dr. Parrish is my attending. - Lab Data Result diagrams: 11/04/22 14:23 11/04/22 14:23 Lab Results 11/04/22 11/04/22 11/04/22 Range/Units 14: 14: 14: WBC 10.7 H (3.8-10.6) k/uL RBC 4.11 (3.80-5.40) m/uL Hgb 13.0 (11.4-16.0) gm/dL Hct 39.2 (34.0-46.0) % MCV 95.6 (80.0-100.0) fL MCH 31.6 (25.0-35.0) pg MCHC 33.1 (31.0-37.0) g/dL RDW 13.7 (11.5-15.5) % Plt Count 374 (150-450) k/uL MPV 7.0 Neutrophils % 72 % Lymphocytes % 22 % Monocytes % 3 % Eosinophils % 2 % Basophils % 1 % Neutrophils # 7.6 (1.3-7.7) k/uL Lymphocytes # 2.4 (1.0-4.8) k/uL Monocytes # 0.3 (0-1.0) k/uL Eosinophils # 0.2 (0-0.7) k/uL Basophils # 0.1 (0-0.2) k/uL Sodium 141 (137-145) mmol/L Potassium 3.8 (3.5-5.1) mmol/L Chloride 104 (98-107) mmol/L Carbon Dioxide 28 (22-30) mmol/L Anion Gap 9 mmol/L BUN 17 (7-17) mg/dL Creatinine 1.01 (0.52-1.04) mg/dL Est GFR (CKD-EPI)AfAm 76 (>60 ml/min/1.73 sqM) Est GFR (CKD-EPI)NonAf 66 (>60 ml/min/1.73 sqM) Glucose 105 H (74-99) mg/dL Calcium 10.0 (8.4-10.2) mg/dL Total Bilirubin 1.1 (0.2-1.3) mg/dL AST 20 (14-36) U/L ALT 15 (4-34) U/L Alkaline Phosphatase 92 (38-126) U/L Total Protein 8.0 (6.3-8.2) g/dL Albumin 4.4 (3.5-5.0) g/dL Blood Type A Positive Blood Type Recheck A Pos Bld Type Recheck Status No Antibody Screen NEGATIVE Spec Expiration Date 11/07/20222322 Disposition Clinical Impression: Uterine fibroid, DUB (dysfunctional uterine bleeding) Disposition: HOME SELF-CARE Condition: Good Instructions (If sedation given, give patient instructions): Abnormal (Dysfunctional) Uterine Bleeding (ED), Dysmenorrhea (ED) Additional Instructions: Take medication as directed. Follow-up with DIRECTOR OF NURSING in one to 2 days. Return to the emergency department if you experience new, concerning, or worsening symptoms. Prescriptions: Ibuprofen [Motrin] 800 mg PO Q8HR PRN #30 tab PRN Reason: Pain Ondansetron Odt [Zofran Odt] 4 mg PO Q8HR PRN #10 tab PRN Reason: Nausea Is patient prescribed a controlled substance at d/c from ED?: No Referrals: Donnie Quiroga DO [Primary Care Provider] - 1-2 days Zeke Parsons MD [STAFF PHYSICIAN] - 1-2 days
[2022-11-04] MEDS ORDERED: ACET/COD 300 MG/30 MG STARTER PACK 6 TAB BTL PO STA (16:41)
[2022-11-04 16:42] VITALS: BP 125/91; PULSE 86; RESP 16; TEMP 98.7
== END 2022-11-04 16:50 | disposition home or self-care (01) ==
LOC: EC 13:15
DX: N93.8 Other specified abnormal uterine and vaginal bleeding (principal); D25.9 Leiomyoma of uterus, unspecified; J44.9 Chronic obstructive pulmonary disease, unspecified; I10 Essential (primary) hypertension; M19.90 Unspecified osteoarthritis, unspecified site; F17.290 Nicotine dependence, other tobacco product, uncomplicated; Z88.8 Allergy status to other drugs, medicaments and biological substances; Z79.899 Other long term (current) drug therapy
CPT/HCPCS: 36415; 86900; 86901; 80053; 85025; 86850; 76830; 99284; 96374; 96375; J2405; J1170

== ENCOUNTER → 2023-01-19 | Emergency (ER) | payer BC, OTHER ==
[~2023-01-19] MED LIST changes: +ACET/COD 300 MG/30 MG STARTER PACK 6 TAB BTL PO STA; +KETOROLAC 15 MG/ML 1 ML VIAL IM STA; -LACTATED RINGERS 1,000 ML IV ONE; -LIDOCAINE 1% 20 ML VIAL (10MG/ML) FOR IV START INTRADERMA ONE; -LIDOCAINE 1% INJ 10MG/ML (20 ML MDV) ONE; +MORPHINE SULFATE 4 MG/ML SYRINGE IM STA; +ORPHENADRINE 30 MG/ML 2 ML VIAL IM STA; -PROPOFOL 10 MG/ML 20 ML VIAL IV ONE
[2023-01-19 10:48] VITALS: RESP 16
--- NOTE | 2023-01-19 11:33 | XR ---
EXAMINATION TYPE: XR shoulder complete RT DATE OF EXAM: 01/19/2023 CLINICAL HISTORY: pain TECHNIQUE: Three views of the right shoulder are obtained. COMPARISON: None FINDINGS: There is no acute fracture/dislocation evident. The acromioclavicular and glenohumeral marine int spaces appear within normal limits. The visualized ribs are intact and unremarkable. IMPRESSION: 1. There is no acute fracture or dislocation. ICD 10 NO FRACTURE, INITIAL EVALUATION
--- NOTE | 2023-01-19 12:34 | ED ---
Upper Extremity HPI - General Chief Complaint: Extremity Injury, Upper Stated Complaint: Rt upper arm pain Time Seen by Provider: 01/19/23 11:02 Source: patient, RN notes reviewed Mode of arrival: ambulatory Limitations: no limitations - History of Present Illness Initial Comments: Patient is a pleasant 47-year-old -[place] female presenting to the emergency room with complaints of pain in her right shoulder and clavicle region ongoing for approximately 1 month. She reports taking anti-inflammatories without any significant improvement in symptoms. She denies any trauma. She reports that she woke one morning with the symptom. She reports that it feels like her collarbone region is swollen at times though there is no swelling on exam. 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 She denies any range of motion impairment not directly related to pain. She denies any numbness tingling or weakness. She denies any other complaints or concerns at this time including any chest pain, shortness breath, abdominal pain, nausea, vomiting, fevers or chills. She has a past medical history significant for asthma, COPD, hypertension and arthritis. - Related Data Home Medications Medication Instructions Recorded Confirmed Albuterol Inhaler [Ventolin Hfa 1 - 2 puff INHALATION RT-Q6H PRN 06/03/14 11/04/22 Inhaler] amLODIPine [Norvasc] 5 mg PO DIRECTED 01/20/18 11/04/22 Levothyroxine Sodium [Synthroid] 25 mcg PO DIRECTED 11/04/22 11/04/22 Valsartan/Hydrochlorothiazide 1 tab PO DIRECTED 11/04/22 11/04/22 [Valsartan-Hctz 320-25 mg Tab] Previous Rx's Medication Instructions Recorded Ibuprofen [Motrin] 800 mg PO Q8HR PRN #30 tab 11/04/22 Ondansetron Odt [Zofran Odt] 4 mg PO Q8HR PRN #10 tab 11/04/22 Cyclobenzaprine HCl 10 mg PO TID PRN 7 Days #21 tab 01/19/23 Ibuprofen [Motrin] 800 mg PO Q8H PRN 7 Days #21 tab 01/19/23 Allergies Allergy/AdvReac Type Severity Reaction Status Date / Time lisinopril Allergy SWELLING,IT Verified 01/19/23 10:47 PINO Review of Systems ROS Statement: Those systems with pertinent positive or pertinent negative responses have been documented in the HPI. ROS Other: All systems not noted in ROS Statement are negative. 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 History of Any Multi-Drug Resistant Organisms: None Reported Past Surgical History: Appendectomy, Section, Cholecystectomy, Hernia Repair, Tubal Ligation Additional Past Surgical History / Comment(s): 3 c/s's Past Anesthesia/Blood Transfusion Reactions: No Reported Reaction Past Psychological History: No Psychological Hx Reported Smoking Status: Vaper Past Alcohol Use History: None Reported Past Drug Use History: None Reported - Past Family History Father Family Medical History: CVA/TIA, Hypertension Additional Family Medical History / Comment(s): still alive Mother Family Medical History: Deep Vein Thrombosis (DVT), Hypertension Additional Family Medical History / Comment(s): BLOOD CLOTS FOR LEGS ON COUMADIN NOT ON IT AT THIS TIME, MOTHER STILL ALIVE, vulva cancer General Exam - General Exam Comments Initial Comments: GENERAL: No acute distress, well developed, well nourished. HEENT: Normocephalic, atraumatic. Pupils equal, round, reactive to light. Moist mucous membranes. LUNGS: No respiratory distress or use of accessory muscles. HEART: Regular rate.. ABDOMEN: Non-distended. BACK: Normal inspection. EXTREMITIES: No edema. Right shoulder active range of motion limited due to pain, full passive range of motion. No crepitus, swelling or dislocation. NEUROLOGIC: Alert & oriented x 3. CN II-XII grossly intact. PSYCHIATRIC: Normal affect and behavior. DERMATOLOGIC: Skin intact, without rashes or lesions noted. Limitations: no limitations Course Vital Signs 01/19/23 01/19/23 10:47 12:37 Temperature 99 F 98.2 F Pulse Rate 71 63 Respiratory 16 16 Rate Blood Pressure 175/93 144/81 O2 Sat by Pulse 99 98 Oximetry Medical Decision Making - Medical Decision Making Was pt. sent in by a medical professional or institution (, PA, WELT POCKET MACHINE OPERATOR, urgent care, hospital, or usp...) When possible be specific @ -No Did you speak to anyone other than the patient for history (EMS, parent, family, police, friend...)? What history was obtained from this source @ -No Did you review nursing and triage notes (agree or disagree)? Why? @ -I reviewed and agree with nursing and triage notes Were old charts reviewed (outside hosp., previous admission, EMS record, old EKG, old radiological studies, urgent care reports/EKG's, usp records)? Report findings @ -No old charts were reviewed Differential Diagnosis (chest pain, altered mental status, abdominal pain women, abdominal pain men, vaginal bleeding, weakness, fever, dyspnea, syncope, headache, dizziness, GI bleed, back pain, seizure, CVA, palpatations, mental health, musculoskeletal)? @ -Differential Musculoskeletal Muscular strain, contusion, ligament sprain, fracture, arthritis, septic arthritis, bursitis, cellulitis, muscle spasm, nerve compression, DVT, arterial occlusion, herpes zoster, electrolyte abnormality, tumor.... This is not meant to be in all inclusive list EKG interpreted by me (3pts min.). @ -None done X-rays interpreted by me (1pt min.). @ -X-ray right shoulder complete: No evidence of fracture or subluxation. Joint spaces well maintained. CT interpreted by me (1pt min.). @ -None done U/S interpreted by me (1pt. min.). @ -None done What testing was considered but not performed or refused? (CT, X-rays, U/S, labs)? Why? @ -None What meds were considered but not given or refused? Why? @ -None Did you discuss the management of the patient with other professionals (professionals i.e. , PA, WELT POCKET MACHINE OPERATOR, lab, RT, psych nurse, social scientist, clinic cma, teacher, division officer weapons department, case therapist)? Give summary @ -No Was smoking cessation discussed for >3mins.? @ -No Was critical care preformed (if so, how long)? @ -No Were there social determinants of health that impacted care today? How? (Homelessness, low income, unemployed, alcoholism, drug addiction, transportation, low edu. Level, literacy, decrease access to med. care, prison, rehab)? @ -No Was there de-escalation of care discussed even if they declined (Discuss DNR or withdrawal of care, Hospice)? DNR status @ -No What co-morbidities impacted this encounter? (DM, HTN, Smoking, COPD, CAD, Cancer, CVA, ARF, Chemo, Hep., AIDS, mental health diagnosis, sleep apnea, morbid obesity)? @ -None Was patient admitted / discharged? Hospital course, mention meds given and route, prescriptions, significant lab abnormalities, going to OR and other pertinent info. @ -47-year-old -[place] female presenting to the emergency room with complaints of pain in her right shoulder and clavicle region ongoing for approximately 1 month. She reports taking anti-inflammatories without any significant improvement in symptoms. Will obtain x-ray of right shoulder and give Norflex along with Toradol IM for pain and monitor response. No indication for laboratory studies at this time. Pain improved but persists after muscle relaxer and Toradol will give IM morphine. X-ray demonstrates no acute process, no fracture, dislocation or impingement. Pain improved after IM morphine will give Tylenol 3 starter pack to utilize in addition to prescription of ibuprofen and muscle relaxer to use alternately to help with pain. Encouraged gentle range of motion, use of [place] tape along with avoidance of heavy lifting. Will keep off work for 48 hours. Questions and concerns answered. Return parameters to the emergency room discussed. Will discharge home in stable condition with Tylenol 3 starter pack and prescriptions for anti-inflammatory and muscle relaxers to utilize for right shoulder pain advising follow-up with primary care provider. Undiagnosed new problem with uncertain prognosis? @ -No Drug Therapy requiring intensive monitoring for toxicity (Heparin, Nitro, Insulin, Cardizem)? @ -No Were any procedures done? @ -No Diagnosis/symptom? @ -Right shoulder pain Acute, or Chronic, or Acute on Chronic? @ -Acute Uncomplicated (without systemic symptoms) or Complicated (systemic symptoms)? @ -Uncomplicated Side effects of treatment? @ -No Exacerbation, Progression, or Severe Exacerbation? @ -No Poses a threat to life or bodily function? How? (Chest pain, USA, [place], pneumonia, PE, COPD, DKA, ARF, appy, cholecystitis, CVA, Diverticulitis, Homicidal, Suicidal, threat to staff... and all critical care pts) @ -No Case discussed with Dr. Khalil. Disposition Clinical Impression: Right shoulder strain Disposition: HOME SELF-CARE Condition: Stable Instructions (If sedation given, give patient instructions): Osteoarthritis (ED), Shoulder Sprain (ED) Additional Instructions: Utilize anti-inflammatory and Tylenol 3 starter pack as needed for pain. Do not take other NSAIDs with ibuprofen 800 mg. Utilize Flexeril as needed for muscle spasms. Do not drive or operate machinery and see normal muscle relaxer will affect to. Avoid excessive heavy lifting and repetitive motion of the right shoulder. Use of kinetic tape to support the shoulder may help reduce her pain. Please follow-up with your primary care provider and orthopedist. Please return to the Emergency Department if symptoms worsen or any other concerns. Prescriptions: Cyclobenzaprine HCl 10 mg PO TID PRN 7 Days #21 tab PRN Reason: Spasms Ibuprofen [Motrin] 800 mg PO Q8H PRN 7 Days #21 tab PRN Reason: Pain Is patient prescribed a controlled substance at d/c from ED?: No Referrals: Donnie Quiroga DO [Primary Care Provider] - 1-2 days Yeison Aceves MD [STAFF PHYSICIAN] - 1-2 days Time of Disposition: 12:34
[2023-01-19 12:41] VITALS: BP 144/81; PULSE 63; TEMP 98.2
== END | disposition home or self-care (01) ==
LOC: EC 10:19
DX: S46.911A Strain of unspecified muscle, fascia and tendon at shoulder and upper arm level, right arm, initial encounter (principal); J44.9 Chronic obstructive pulmonary disease, unspecified; I10 Essential (primary) hypertension; M19.90 Unspecified osteoarthritis, unspecified site; F17.290 Nicotine dependence, other tobacco product, uncomplicated; Z88.8 Allergy status to other drugs, medicaments and biological substances; Z79.899 Other long term (current) drug therapy; X50.9XXA Other and unspecified overexertion or strenuous movements or postures, initial encounter
CPT/HCPCS: 73030; 99283; 96372 ×3; J2270; J2360; J1885

== ENCOUNTER 2023-03-03 09:39 | Emergency (ER) | payer SELFPAY ==
[2023-03-03 09:51] VITALS: TEMP 98.2
[2023-03-03] MEDS ORDERED: hydrALAZINE HCL 20 MG/ML 1 ML VIAL IVP STA ×2 (10:45→11:44)
--- NOTE | 2023-03-03 11:26 | ED ---
General Adult HPI - General Chief complaint: Recheck/Abnormal Lab/Rx Stated complaint: Recheck Time Seen by Provider: 03/03/23 10:12 Source: patient, family, RN notes reviewed Mode of arrival: ambulatory Limitations: no limitations - History of Present Illness Initial comments: 47-year-old female presents emergency Department from PCPs office chief compl aint of hypertension. Patient states she supposed be on amlodipine for her blood pressure but states that she is not taking it recently. Patient states that she's had some frequent headaches and overall not feeling well. She denies any chest pain or shortness of breath. Denies any abdominal discomfort no nausea vomiting. Patient has no back pain no flank pain. - Related Data Home Medications Medication Instructions Recorded Confirmed Albuterol Inhaler [Ventolin Hfa 1 - 2 puff INHALATION RT-Q6H PRN 06/03/14 03/03/23 Inhaler] Previous Rx's Medication Instructions Recorded amLODIPine [Norvasc] 10 mg PO DAILY #30 tablet 03/03/23 Allergies Allergy/AdvReac Type Severity Reaction Status Date / Time lisinopril Allergy SWELLING,IT Verified 03/03/23 11:13 PINO Review of Systems ROS Statement: Those systems with pertinent positive or pertinent negative responses have been documented in the HPI. ROS Other: All systems not noted in ROS Statement are negative. 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 History of Any Multi-Drug Resistant Organisms: None Reported Past Surgical History: Appendectomy, Section, Cholecystectomy, Hernia Repair, Tubal Ligation Additional Past Surgical History / Comment(s): 3 c/s's Past Anesthesia/Blood Transfusion Reactions: No Reported Reaction Past Psychological History: No Psychological Hx Reported Smoking Status: Vaper Past Alcohol Use History: Rare Past Drug Use History: Marijuana - Past Family History Father Family Medical History: CVA/TIA, Hypertension Additional Family Medical History / Comment(s): still alive Mother Family Medical History: Deep Vein Thrombosis (DVT), Hypertension Additional Family Medical History / Comment(s): BLOOD CLOTS FOR LEGS ON COUMADIN NOT ON IT AT THIS TIME, MOTHER STILL ALIVE, vulva cancer General Exam Limitations: no limitations General appearance: alert, in no apparent distress Head exam: Present: atraumatic, normocephalic, normal inspection Eye exam: Present: normal appearance, PERRL, EOMI. Absent: scleral icterus, conjunctival injection, periorbital swelling ENT exam: Present: normal exam, normal oropharynx, mucous membranes moist Neck exam: Present: normal inspection, full ROM. Absent: tenderness, meningismus, lymphadenopathy Respiratory exam: Present: normal lung sounds bilaterally. Absent: respiratory distress, wheezes, rales, rhonchi, stridor Cardiovascular Exam: Present: regular rate, normal rhythm, normal heart sounds. Absent: systolic murmur, diastolic murmur, rubs, gallop, clicks GI/Abdominal exam: Present: soft, normal bowel sounds. Absent: distended, tenderness, guarding, rebound, rigid Neurological exam: Present: alert Skin exam: Present: warm, dry, intact, normal color. Absent: rash Course Vital Signs 03/03/23 03/03/23 03/03/23 09:47 10:30 11:20 Temperature 98.2 F Pulse Rate 71 66 68 Respiratory 18 18 18 Rate Blood Pressure 211/117 182/112 200/113 O2 Sat by Pulse 99 99 100 Oximetry 03/03/23 03/03/23 03/03/23 11:41 12:25 13:05 Temperature Pulse Rate 80 71 93 Respiratory 20 18 18 Rate Blood Pressure 168/107 182/100 150/87 O2 Sat by Pulse 100 100 98 Oximetry 03/03/23 13:40 Temperature Pulse Rate 84 Respiratory 18 Rate Blood Pressure 157/90 O2 Sat by Pulse 96 Oximetry EKG Findings - EKG Comments: EKG Findings:: EKG performed at 19:56 sinus rhythm rate of 71 SD 173 QRS 91 QT/QTC 390/412 - EKG Results: EKG: interpreted by MELQUIAD[facility] Medical Decision Making - Medical Decision Making Was pt. sent in by a medical professional or institution (, PA, POLICE CADET, urgent care, hospital, or usp...) When possible be specific @ -No Did you speak to anyone other than the patient for history (EMS, parent, family, police, friend...)? What history was obtained from this source @ -No Did you review nursing and triage notes (agree or disagree)? Why? @ -I reviewed and agree with nursing and triage notes Were old charts reviewed (outside hosp., previous admission, EMS record, old EKG, old radiological studies, urgent care reports/EKG's, usp records)? Report findings @ -No old charts were reviewed Differential Diagnosis (chest pain, altered mental status, abdominal pain women, abdominal pain men, vaginal bleeding, weakness, fever, dyspnea, syncope, headache, dizziness, GI bleed, back pain, seizure, CVA, palpatations, mental health, musculoskeletal)? @ -Hypertension, chest pain, shortness of breath, renal failure EKG interpreted by me (3pts min.). @ -As above X-rays interpreted by me (1pt min.). @ -None done CT interpreted by me (1pt min.). @ -None done U/S interpreted by me (1pt. min.). @ -None done What testing was considered but not performed or refused? (CT, X-rays, U/S, labs)? Why? @ -Consider CT though headache improved. What meds were considered but not given or refused? Why? @ -None Did you discuss the management of the patient with other professionals (professionals i.e. , PA, POLICE CADET, lab, RT, psych nurse, dialysis social worker, blindmaker, teacher, combat information center officer, case mgr)? Give summary @ -No Was smoking cessation discussed for >3mins.? @ -No Was critical care preformed (if so, how long)? @ -No Were there social determinants of health that impacted care today? How? (Homelessness, low income, unemployed, alcoholism, drug addiction, transportation, low edu. Level, literacy, decrease access to med. care, skilled nursing, rehab)? @ -No Was there de-escalation of care discussed even if they declined (Discuss DNR or withdrawal of care, Hospice)? DNR status @ -No What co-morbidities impacted this encounter? (DM, HTN, Smoking, COPD, CAD, Cancer, CVA, ARF, Chemo, Hep., AIDS, mental health diagnosis, sleep apnea, morbid obesity)? @ -Hypertension Was patient admitted / discharged? Hospital course, mention meds given and route, prescriptions, significant lab abnormalities, going to OR and other pertinent info. @ -Discharge patient blood pressures improved. Patient's was restarted on her amlodipine that she has not been taking. Patient's headache has resolved. She did not claim tach. Undiagnosed new problem with uncertain prognosis? @ -No Drug Therapy requiring intensive monitoring for toxicity (Heparin, Nitro, Insulin, Cardizem)? @ -No Were any procedures done? @ -No Diagnosis/symptom? @ -Hypertension Acute, or Chronic, or Acute on Chronic? @ -Acute Uncomplicated (without systemic symptoms) or Complicated (systemic symptoms)? @ -Uncomplicated Side effects of treatment? @ -No Exacerbation, Progression, or Severe Exacerbation? @ -No Poses a threat to life or bodily function? How? (Chest pain, USA, CT, pneumonia, PE, COPD, DKA, ARF, appy, cholecystitis, CVA, Diverticulitis, Homicidal, Suicidal, threat to staff... and all critical care pts) @ -No - Lab Data Result diagrams: 03/03/23 11:20 03/03/23 11:20 Lab Results 03/03/23 03/03/23 03/03/23 Range/Units 11:20 11:20 11:20 WBC 6.2 (3.8-10.6) k/uL RBC 3.55 L (3.80-5.40) m/uL Hgb 10.2 L (11.4-16.0) gm/dL Hct 31.9 L (34.0-46.0) % MCV 89.6 (80.0-100.0) fL MCH 28.8 (25.0-35.0) pg MCHC 32.2 (31.0-37.0) g/dL RDW 15.0 (11.5-15.5) % Plt Count 354 (150-450) k/uL MPV 7.4 Neutrophils % 58 % Lymphocytes % 35 % Monocytes % 4 % Eosinophils % 2 % Basophils % 0 % Neutrophils # 3.6 (1.3-7.7) k/uL Lymphocytes # 2.2 (1.0-4.8) k/uL Monocytes # 0.2 (0-1.0) k/uL Eosinophils # 0.1 (0-0.7) k/uL Basophils # 0.0 (0-0.2) k/uL PT 10.4 (9.0-12.0) sec INR 1.0 (<1.2) APTT 23.5 (22.0-30.0) sec Sodium 139 (137-145) mmol/L Potassium 4.0 (3.5-5.1) mmol/L Chloride 102 (98-107) mmol/L Carbon Dioxide 28 (22-30) mmol/L Anion Gap 9 mmol/L BUN 11 (7-17) mg/dL Creatinine 0.85 (0.52-1.04) mg/dL Est GFR (CKD-EPI)AfAm >90 (>60 ml/min/1.73 sqM) Est GFR (CKD-EPI)NonAf 81 (>60 ml/min/1.73 sqM) Glucose 93 (74-99) mg/dL Calcium 9.3 (8.4-10.2) mg/dL Magnesium 1.9 (1.6-2.3) mg/dL Total Bilirubin 0.6 (0.2-1.3) mg/dL AST 29 (14-36) U/L ALT 19 (4-34) U/L Alkaline Phosphatase 88 (38-126) U/L Troponin I (0.000-0.034) ng/mL Total Protein 7.6 (6.3-8.2) g/dL Albumin 4.0 (3.5-5.0) g/dL 03/03/23 Range/Units 11:20 WBC (3.8-10.6) k/uL RBC (3.80-5.40) m/uL Hgb (11.4-16.0) gm/dL Hct (34.0-46.0) % MCV (80.0-100.0) fL MCH (25.0-35.0) pg MCHC (31.0-37.0) g/dL RDW (11.5-15.5) % Plt Count (150-450) k/uL MPV Neutrophils % % Lymphocytes % % Monocytes % % Eosinophils % % Basophils % % Neutrophils # (1.3-7.7) k/uL Lymphocytes # (1.0-4.8) k/uL Monocytes # (0-1.0) k/uL Eosinophils # (0-0.7) k/uL Basophils # (0-0.2) k/uL PT (9.0-12.0) sec INR (<1.2) APTT (22.0-30.0) sec Sodium (137-145) mmol/L Potassium (3.5-5.1) mmol/L Chloride (98-107) mmol/L Carbon Dioxide (22-30) mmol/L Anion Gap mmol/L BUN (7-17) mg/dL Creatinine (0.52-1.04) mg/dL Est GFR (CKD-EPI)AfAm (>60 ml/min/1.73 sqM) Est GFR (CKD-EPI)NonAf (>60 ml/min/1.73 sqM) Glucose (74-99) mg/dL Calcium (8.4-10.2) mg/dL Magnesium (1.6-2.3) mg/dL Total Bilirubin (0.2-1.3) mg/dL AST (14-36) U/L ALT (4-34) U/L Alkaline Phosphatase (38-126) U/L Troponin I <0.012 (0.000-0.034) ng/mL Total Protein (6.3-8.2) g/dL Albumin (3.5-5.0) g/dL Disposition Clinical Impression: Hypertension Disposition: HOME SELF-CARE Condition: Stable Instructions (If sedation given, give patient instructions): Hypertension (ED) Additional Instructions: Please return to the Emergency Department if symptoms worsen or any other concerns. Prescriptions: amLODIPine [Norvasc] 10 mg PO DAILY #30 tablet Is patient prescribed a controlled substance at d/c from ED?: No Referrals: Donnie Quiroga DO [Primary Care Provider] - 1-2 days Time of Disposition: 13:07
[2023-03-03 11:33] LABS: Basophils % (A) 0 %; Eosinophils # (A) 0.1 k/uL (0-0.7); Eosinophils % (A) 2 %; HCT 31.9 % (34.0-46.0); HGB 10.2 gm/dL (11.4-16.0); Lymphocytes # (A) 2.2 k/uL (1.0-4.8); Lymphocytes % (A) 35 %; MCH 28.8 pg (25.0-35.0); MCHC 32.2 g/dL (31.0-37.0); MCV 89.6 fL (80.0-100.0); Mean Platelet Volume 7.4; Monocytes # (A) 0.2 k/uL (0-1.0); Monocytes % (A) 4 %; Neutrophils # (A) 3.6 k/uL (1.3-7.7); Neutrophils % (A) 58 %; Platelet Count 354 k/uL (150-450); RBC 3.55 m/uL (3.80-5.40); WBC 6.2 k/uL (3.8-10.6)
[2023-03-03] MEDS ORDERED: METOCLOPRAMIDE 5 MG/ML 2 ML VIAL IVP STA (11:47)
[2023-03-03] MEDS ORDERED: diphenhydrAMINE 50 MG/ML 1 ML VIAL IVP STA (11:47)
[2023-03-03] MEDS ORDERED: KETOROLAC 15 MG/ML 1 ML VIAL IVP STA (11:47)
[2023-03-03 11:49] LABS: ALT 19 U/L (4-34); AST 29 U/L (14-36); African American GFR (CKD) >90 (>60 ml/min/1.73 sqM); Alkaline Phosphatase 88 U/L (38-126); Anion Gap 9 mmol/L; Blood Urea Nitrogen 11 mg/dL (7-17); Calcium 9.3 mg/dL (8.4-10.2); Carbon Dioxide 28 mmol/L (22-30); Chloride 102 mmol/L (98-107); Glucose 93 mg/dL (74-99); Magnesium 1.9 mg/dL (1.6-2.3); Non-African American GFR(CKD) 81 (>60 ml/min/1.73 sqM); Sodium 139 mmol/L (137-145); Total Bilirubin 0.6 mg/dL (0.2-1.3); Total Protein 7.6 g/dL (6.3-8.2)
[2023-03-03 12:02] LABS: Partial Thromboplastin Time 23.5 sec (22.0-30.0); Prothrombin Time 10.4 sec (9.0-12.0)
[2023-03-03 12:27] VITALS: RESP 18
[2023-03-03 13:49] VITALS: BP 157/90; PULSE 84
== END 2023-03-03 13:57 | disposition home or self-care (01) ==
LOC: EC 09:39
DX: I10 Essential (primary) hypertension (principal); J44.9 Chronic obstructive pulmonary disease, unspecified; F17.290 Nicotine dependence, other tobacco product, uncomplicated; F12.90 Cannabis use, unspecified, uncomplicated; Z79.899 Other long term (current) drug therapy; Z88.8 Allergy status to other drugs, medicaments and biological substances
CPT/HCPCS: 36415; 93005; 80053; 83735; 84484; 85025; 85610; 85730; 99284; 96374; 96375 ×3; 96376; J0360; J1200; J2765; J1885

== ENCOUNTER → 2023-03-31 | Outpatient (CLI) | payer OTHER ==
--- NOTE | 2023-03-31 16:38 | US ---
EXAMINATION TYPE: US venous doppler duplex LE RT DATE OF EXAM: 03/31/2023 4:15 PM COMPARISON: US 2020 CLINICAL INDICATION: Female, 47 years old with history of RLE; R22.41; Swelling since end january. N o hx of DVT. Patient does not take blood thinners. SIDE PERFORMED: Right TECHNIQUE: The lower extremity deep venous system is examined utilizing real time linear array sonog sandy with graded compression, doppler sonography and color-flow sonography. VESSELS IMAGED: Common Femoral Vein Deep Femoral Vein Greater Saphenous Vein * Femoral Vein Popliteal Vein Small Saphenous Vein * Proximal Calf Veins (* superficial vessels) Right Leg: No evidence of DVT. IMPRESSION:
== END | disposition home or self-care (01) ==
LOC: RADUSWWP 15:54
PROVIDERS: ATTEND Family Medicine
DX: R22.41 Localized swelling, mass and lump, right lower limb (principal)

== ENCOUNTER 2023-06-02 10:32 | Day surgery (SDC) | payer OTHER ==
[2023-05-28 15:40] VITALS: BMI 31.6
[~2023-06-02 10:32] MED LIST changes: -ACET/COD 300 MG/30 MG STARTER PACK 6 TAB BTL PO STA; -KETOROLAC 15 MG/ML 1 ML VIAL IM STA; +LACTATED RINGERS 1,000 ML IV SCH; +LIDOCAINE 1% (10MG/ML) FOR IV START INTRADERMA PRN; -MORPHINE SULFATE 4 MG/ML SYRINGE IM STA; -ORPHENADRINE 30 MG/ML 2 ML VIAL IM STA
[2023-06-02] MEDS ORDERED: LACTATED RINGERS 1,000 ML IV ONE (11:12)
[2023-06-02 11:31] VITALS: TEMP 98.3
[2023-06-02] MEDS ORDERED: PROPOFOL 10 MG/ML 20 ML VIAL IV ONE (12:21)
--- NOTE | 2023-06-02 12:40 | P.PCN ---
Date of Procedure: 06/02/23 Procedure(s) Performed: BRIEF HISTORY: Patient is a 47-year-old pleasant white female scheduled for an elective colonoscopy as a part of screening for colon cancer PROCEDURE PERFORMED: Colonoscopy With snare polyp PREOPERATIVE DIAGNOSIS: Screening for colon cancer. IV sedation per Anesthesia. PROCEDURE: After informed consent was obtained, the patient, was brought into the endoscopy unit. IV sedation was administered by Anesthesia under continuous monitoring. Digital rectal examination was normal. Initially the Olympus CF-160 flexible video colonoscope was then inserted in the rectum, gradually advanced into the cecum without any difficulty. Careful examination was performed as the scope was gradually being withdrawn. Ileocecal valve and the appendiceal orifice were visualized and appeared normal. Prep was fair. Mucosa of the cecum, and 1 cm polyp at the ileocecal valve that was removed by snare polypectomy. In the ascending colon there was a 3 mm, 5 mm and 6 mg polyp removed by snare polypectomy. Scattered right-sided diverticulosis seen. Rest of the ascending colon, transverse colon, descending colon, sigmoid colon, and rectum appeared normal. Retroflexion was performed in the rectum and no lesions were seen. The patient tolerated the procedure well. IMPRESSION: 1 cm polyp on the ileocecal valve status post polypectomy 3 mm, 5 mm and 6 mm ascending colon polyp status post polypectomy Scattered diverticulosis RECOMMENDATIONS: Findings of this examination were discussed with the patient as well as a family. She was advised to follow with the biopsy results. If the biopsy results adenoma she can have a repeat colonoscopy in 3 years
[2023-06-02 13:03] VITALS: BP 136/85; PULSE 72; RESP 18
== END 2023-06-02 13:33 | disposition home or self-care (01) ==
LOC: ORWHC2ENDO 10:32
PROVIDERS: ATTEND Internal Medicine Gastroenterology
DX: Z12.11 Encounter for screening for malignant neoplasm of colon (principal); K63.5 Polyp of colon; K57.30 Diverticulosis of large intestine without perforation or abscess without bleeding; J44.9 Chronic obstructive pulmonary disease, unspecified; I10 Essential (primary) hypertension; E03.9 Hypothyroidism, unspecified; Z88.8 Allergy status to other drugs, medicaments and biological substances; Z79.890 Hormone replacement therapy; Z79.899 Other long term (current) drug therapy
CPT/HCPCS: 81025; 88305; 45385; J2704

== ENCOUNTER 2023-06-25 07:30 | Day surgery (SDC) | payer OTHER ==
[2023-06-24 09:00] VITALS: BMI 31.2
--- NOTE | 2023-06-25 07:02 | P.GSHP ---
History of Present Illness H&P Date: 06/25/23 CHIEF COMPLAINT: Skin cancer right forearm HISTORY OF PRESENT ILLNESS: The patient is a 47 year-old female with over 1 year painful tumor of the right forearm who presents for definitive excision. PAST MEDICAL HISTORY: Please see list. PAST SURGICAL HISTORY: Please see list. MEDICATIONS: Please see list. ALLERGIES: Please see list. SOCIAL HISTORY: No illicit drug use FAMILY HISTORY: No reports of Crohn disease or ulcerative colitis. REVIEW OF ORGAN SYSTEMS: CONSTITUTIONAL: No reports of fevers or chills. GI: Denies any blood in stools or constipation. PHYSICAL EXAM: VITAL SIGNS: Stable Musculoskeletal: No clubbing cyanosis GENERAL: Well developed and in no acute distress. Pleasant. HEENT: No sclera icterus. Extraocular movements grossly intact. Moist buccal mucosa. Head is atraumatic, normocephalic. Hears conversational speech. No nasal drainage. NECK: Supple without lymphadenopathy. No JV distention. CHEST: Non-labored respirations and equal bilateral excursions. CARDIOVASCULAR: Regular rate and rhythm. Palpable 2+ radial pulses. ABDOMEN: Soft. Non-tender. Nondistended. NEUROLOGIC: No focal or lateralizing signs. PSYCH: Appropriate affect. Alert and oriented to person, place and time. SKIN: Skin lesion right forearm, 5 cm ASSESSMENT: 1. Tumor right forearm PLAN: 1. Will proceed of excision of right forearm tumor. Benefits and risks described. 2. Antibiotic prophylaxis. 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 History of Any Multi-Drug Resistant Organisms: None Reported Past Surgical History: Appendectomy, Section, Cholecystectomy, Hernia Repair, Tubal Ligation Additional Past Surgical History / Comment(s): C/S X3 Past Anesthesia/Blood Transfusion Reactions: No Reported Reaction Past Psychological History: No Psychological Hx Reported Smoking Status: Former smoker, Vaper Past Alcohol Use History: Rare Additional Past Alcohol Use History / Comment(s): quit smoking 15 years ago; smoked for about <8 years 1 ppd Past Drug Use History: Marijuana - Past Family History Father Family Medical History: CVA/TIA, Hypertension Additional Family Medical History / Comment(s): still alive Mother Family Medical History: Deep Vein Thrombosis (DVT), Hypertension Additional Family Medical History / Comment(s): BLOOD CLOTS FOR LEGS ON COUMADIN NOT ON IT AT THIS TIME, MOTHER STILL ALIVE, vulva cancer Medications and Allergies Home Medications Medication Instructions Recorded Confirmed Type Albuterol Inhaler [Ventolin Hfa 1 - 2 puff INHALATION RT-Q6H PRN 06/03/14 06/24/23 History Inhaler] amLODIPine [Norvasc] 10 mg PO DAILY #30 tablet 03/03/23 06/24/23 Rx Ferrous Sulfate [Feosol] 325 mg PO DAILY 05/28/23 06/24/23 History Levothyroxine Sodium 25 mcg PO DAILY 05/28/23 06/24/23 History Valsartan/Hydrochlorothiazide 1 tab PO DAILY 05/28/23 06/24/23 History [Valsartan-Hctz 320-12.5 mg Tab] Allergies Allergy/AdvReac Type Severity Reaction Status Date / Time lisinopril Allergy SWELLING,IT Verified 06/24/23 08:53 PINO
[~2023-06-25 07:30] MED LIST changes: +ACETAMINOPHEN TAB 500 MG TAB PO PRN; +HEPARIN SODIUM,PORCINE/PF 5,000 UNIT/0.5 ML SYRINGE SQ PRN; +HYDROmorphone 0.5 MG/0.5 ML SYRINGE IVP PRN; -LIDOCAINE 1% (10MG/ML) FOR IV START INTRADERMA PRN; +MIDAZOLAM 2 MG/2 ML VIAL IV PRN; +ONDANSETRON 4 MG/2 ML VIAL IVP PRN; +Pre Op ABX Message 1 EACH MISC MISCELLANE ONE
[2023-06-25] MEDS ORDERED: DEXAMETHASONE SOD PHOSPHATE 4 MG/ML 1 ML VIAL IVP ONE (08:12)
[2023-06-25] MEDS ORDERED: LIDOCAINE 2% INJ 20 MG/ML (2 ML VIAL) ONE (09:18)
[2023-06-25] MEDS ORDERED: SUCCINYLCHOLINE CHLORIDE 200 MG/10 ML VIAL IV ONE (09:18)
[2023-06-25] MEDS ORDERED: SODIUM CHLORIDE 0.9% 100 ML BAG ONE (09:18)
[2023-06-25] MEDS ORDERED: fentaNYL (PF) 50 MCG/ML 2 ML AMP ONE (09:18)
[2023-06-25] MEDS ORDERED: ceFAZolin 1,000 MG VIAL ONE (09:18)
[2023-06-25] MEDS ORDERED: MIDAZOLAM 2 MG/2 ML VIAL ONE (09:18)
[2023-06-25] MEDS ORDERED: PROPOFOL 10 MG/ML 20 ML VIAL IV ONE (09:18)
[2023-06-25] MEDS ORDERED: LIDOCAINE 1%-EPI 1:100,000 50 ML VIAL SQ ONE ×2 (09:42→09:50)
--- NOTE | 2023-06-25 10:18 | P.OP ---
Date of Procedure: 06/25/23 Description of Procedure: SURGEON: NATALYA KATZ MD RIVETER PNEUMATIC: NONE. PREOPERATIVE DIAGNOSES: 1. Right forearm tumor, subcutaneous POSTOPERATIVE DIAGNOSES: 1. Right forearm tumor, subcutaneous, 2 cm OPERATION: 1. Excision of right lateral forearm subcutaneous tumor, 4 cm. 2. Intermediate closure of right forearm incision, 4 cm. ANESTHESIA: GETA with local ESTIMATED BLOOD LOSS: 5 mL. SPECIMENS REMOVED: 1. Right forearm subcutaneous tumor COMPLICATIONS: None. FINDINGS: 1. Right forearm mass excision lipoma INDICATIONS: The patient is a 47-year-old female who presents with right forearm subcutaneous tumor. Surgical options, including excision was discussed. Benefits and risks were described. Informed consent was obtained. DESCRIPTION OF PROCEDURE: Patient was brought into the operating room, laid in left lateral decubitus position. After adequate IV sedation, the left forearm was prepped and draped in standard sterile fashion using ChloraPrep. A timeout protocol was confirmed with the surgical team regarding patient's name including procedures to be performed. Preoperative medications was administered. Next, a local field block was administered. The right forearm was measured using a ruler with borders marked with indelible marker. A longitudinal incision 6 cm was made into the dermis followed by circumferential dissection using electro- Bovie cautery into the subcutaneous tissue of the right proximal posterior forearm. The skin was very thin. Hemostasis was checked with electrocautery. The wound was closed in multiple layers including 3-0 Vicryl for the subcutaneous tissue. The skin was closed using 3-0 Monocryl. The skin was cleansed. Exofin tape was placed. Optifoam dressing was placed. At the end of the procedure, needle, sponge, and instrument count had been verified correct by the surgical aide. The patient was taken to the postanesthesia care unit in stable condition. Plan - Discharge Summary Discharge Rx Participant: No New Discharge Prescriptions: New Acetaminophen Tab [Tylenol Tab] 1,000 mg PO Q6HR PRN #30 tablet PRN Reason: Pain Continue Albuterol Inhaler [Ventolin Hfa Inhaler] 1 - 2 puff INHALATION RT-Q6H PRN PRN Reason: Shortness Of Breath amLODIPine [Norvasc] 10 mg PO DAILY #30 tablet Valsartan/Hydrochlorothiazide [Valsartan-Hctz 320-12.5 mg Tab] 1 tab PO DAILY Levothyroxine Sodium 25 mcg PO DAILY Ferrous Sulfate [Iron (65 MG Elemental)] 325 mg PO DAILY Discharge Medication List Albuterol Inhaler [Ventolin Hfa Inhaler] 1 - 2 puff INHALATION RT-Q6H PRN [History] amLODIPine [Norvasc] 10 mg PO DAILY #30 tablet 03/03/23 [Rx] Ferrous Sulfate [Iron (65 MG Elemental)] 325 mg PO DAILY 05/28/23 [History] Levothyroxine Sodium 25 mcg PO DAILY 05/28/23 [History] Valsartan/Hydrochlorothiazide [Valsartan-Hctz 320-12.5 mg Tab] 1 tab PO DAILY 05/28/23 [History] Acetaminophen Tab [Tylenol Tab] 1,000 mg PO Q6HR PRN #30 tablet 06/25/23 [Rx] Follow up Appointment(s)/Referral(s): Natalya Katz MD [STAFF PHYSICIAN] - 07/06/23 Patient Instructions/Handouts: General Mass Excision (GEN) Activity/Diet/Wound Care/Special Instructions: DO NOT REMOVE DRESSING UNTIL SEEN IN THE OFFICE Keep dressing dry. Diet as tolerated. Use Tylenol and ibuprofen scheduled for the next 24-48 hours for best pain relief. Use ice along incisions for today to prevent swelling. Discharge Disposition: HOME SELF-CARE
[2023-06-25 10:20] VITALS: TEMP 97.8
[2023-06-25 11:35] VITALS: BP 131/87; PULSE 87; RESP 18
== END 2023-06-25 11:40 | disposition home or self-care (01) ==
LOC: OR 07:30
PROVIDERS: ATTEND Surgery Plastic and Reconstructive Surgery
DX: D17.21 Benign lipomatous neoplasm of skin and subcutaneous tissue of right arm (principal); J44.9 Chronic obstructive pulmonary disease, unspecified; I10 Essential (primary) hypertension; M19.90 Unspecified osteoarthritis, unspecified site; G47.33 Obstructive sleep apnea (adult) (pediatric); E07.9 Disorder of thyroid, unspecified; F12.90 Cannabis use, unspecified, uncomplicated; F10.90 Alcohol use, unspecified, uncomplicated; Z90.49 Acquired absence of other specified parts of digestive tract; Z87.891 Personal history of nicotine dependence; Z79.899 Other long term (current) drug therapy; Z88.8 Allergy status to other drugs, medicaments and biological substances; Z79.890 Hormone replacement therapy; Z98.890 Other specified postprocedural states
CPT/HCPCS: 25071; 81025; J2250; J0330; J1100; J2405; J0690; J3010; J2704; J1644; J2001; 88304

== ENCOUNTER 2024-01-10 09:25 | Emergency (ER) | payer BC, OTHER ==
[2024-01-10 09:42] VITALS: TEMP 97.3
[2024-01-10 10:39] LABS: ALT 12 U/L (4-34); AST 27 U/L (14-36); African American GFR (CKD) >90 (>60 ml/min/1.73 sqM); Albumin 3.8 g/dL (3.5-5.0); Alkaline Phosphatase 72 U/L (38-126); Anion Gap 10 mmol/L; Blood Urea Nitrogen 11 mg/dL (7-17); Calcium 9.3 mg/dL (8.4-10.2); Carbon Dioxide 19 mmol/L (22-30); Chloride 110 mmol/L (98-107); Glucose 100 mg/dL (74-99); Non-African American GFR(CKD) >90 (>60 ml/min/1.73 sqM); Sodium 139 mmol/L (137-145); Total Protein 7.3 g/dL (6.3-8.2)
--- NOTE | 2024-01-10 10:44 | ED ---
Female Urogenital HPI - General Chief complaint: Vaginal Bleeding Stated complaint: vaginal bleeding Time Seen by Provider: 01/10/24 09:38 Source: patient, RN notes reviewed Mode of arrival: ambulatory Limitations: no limitations - History of Present Illness Initial comments: This is a 48-year-old female who presents to the emergency department for vagin al bleeding. States that this started 2 days ago. Reports associated abdominal cramping. Her last menstrual cycle was in May 2023. The bleeding has gotten progressively worse and she states that she was having to change her pads every 30 minutes to an hour at some points. Reports passing large clots as well. Not taking any blood thinners. She has associated nausea and dizziness as well. She does have a known history of fibroids and states that she will need hysterectomy. 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 She was just given information to follow-up with them and is awaiting an appointment. MD Complaint: vaginal bleeding - Related Data Home Medications Medication Instructions Recorded Confirmed Albuterol Inhaler [Ventolin Hfa 1 - 2 puff INHALATION RT-Q6H PRN 06/03/14 06/25/23 Inhaler] Ferrous Sulfate [Iron (65 MG 325 mg PO DAILY 05/28/23 06/25/23 Elemental)] Levothyroxine Sodium 25 mcg PO DAILY 05/28/23 06/25/23 Valsartan/Hydrochlorothiazide 1 tab PO DAILY 05/28/23 06/25/23 [Valsartan-Hctz 320-12.5 mg Tab] Previous Rx's Medication Instructions Recorded amLODIPine [Norvasc] 10 mg PO DAILY #30 tablet 03/03/23 Acetaminophen Tab [Tylenol Tab] 1,000 mg PO Q6HR PRN #30 tablet 06/25/23 Ibuprofen [Motrin] 800 mg PO Q8H PRN #30 tab 01/10/24 Ondansetron Odt [Zofran Odt] 4 mg PO Q8HR PRN #15 tab 01/10/24 Allergies Allergy/AdvReac Type Severity Reaction Status Date / Time lisinopril Allergy SWELLING,IT Verified 01/10/24 09:36 PINO Review of Systems ROS Statement: Those systems with pertinent positive or pertinent negative responses have been documented in the HPI. ROS Other: All systems not noted in ROS Statement are negative. 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 History of Any Multi-Drug Resistant Organisms: None Reported Past Surgical History: Appendectomy, Section, Cholecystectomy, Hernia Repair, Tubal Ligation Additional Past Surgical History / Comment(s): 3 c/s's Past Anesthesia/Blood Transfusion Reactions: No Reported Reaction Additional Past Anesthesia/Blood Transfusion Reaction / Comment(s): no blood transfusion Past Psychological History: No Psychological Hx Reported Smoking Status: Vaper Past Alcohol Use History: Occasional Past Drug Use History: None Reported - Past Family History Father Family Medical History: CVA/TIA, Hypertension Additional Family Medical History / Comment(s): still alive Mother Family Medical History: Deep Vein Thrombosis (DVT), Hypertension Additional Family Medical History / Comment(s): BLOOD CLOTS FOR LEGS ON COUMADIN NOT ON IT AT THIS TIME, MOTHER STILL ALIVE, vulva cancer General Exam Limitations: no limitations General appearance: alert, in no apparent distress Head exam: Present: atraumatic, normocephalic, normal inspection Respiratory exam: Present: normal lung sounds bilaterally. Absent: respiratory distress, wheezes, rales, rhonchi, stridor Cardiovascular Exam: Present: regular rate, normal rhythm, normal heart sounds. Absent: systolic murmur, diastolic murmur, rubs, gallop, clicks GI/Abdominal exam: Present: soft, tenderness (Lower abdomen), normal bowel sounds. Absent: distended Neurological exam: Present: alert, oriented X3, CN II-XII intact Psychiatric exam: Present: normal affect, normal mood Skin exam: Present: warm, dry, intact, normal color. Absent: rash Course Vital Signs 01/10/24 01/10/24 01/10/24 09:32 10:54 13:09 Temperature 97.3 F L Pulse Rate 85 86 74 Respiratory 18 16 12 Rate Blood Pressure 178/106 156/90 176/82 O2 Sat by Pulse 98 98 99 Oximetry Medical Decision Making - Medical Decision Making This is a 48 year old female who presents to the emergency department for vaginal bleeding. Was pt. sent in by a medical professional or institution? @ -No Did you speak to anyone other than the patient for history? @ -No Did you review nursing and triage notes? @ -Yes, and I agree, it is accurate with regards to the patient's symptoms. Were old charts reviewed? @ -No Differential Diagnosis? @ -Differential Vaginal Bleeding: Spontaneous , threatened , molar , ectopic , incompetent cervix, placenta previa, uterine rupture, dysfunctional uterine bleeding, hemorrhage, uterine fibroids, malignancy, coagulopathy, PID, cervicitis, adenomyosis, vaginal trauma, this is not meant to be an all- inclusive list. EKG interpreted by me (3pts min.)? @ -Not obtained X-rays interpreted by me (1pt min.)? @ -Not obtained CT interpreted by me (1pt min.)? @ -Not obtained U/S interpreted by me (1pt. min.)? @ -Transvaginal ultrasound obtained. My interpretation identifies uterine fibroids. What testing was considered but not performed? (CT, X-rays, U/S, labs)? Why? @ -None What meds were considered but not given? Why? @ -None Did you discuss the management of the patient with other professionals? @ -No Did you reconcile home meds? @ -No Was smoking cessation discussed for >3mins.? @ -No Was critical care preformed (if so, how long)? @ -No Were there social determinants of health that impacted care today? How? (Homelessness, low income, unemployed, alcoholism, drug addiction, transportation, low edu. Level, literacy, decrease access to med. care, fdc, rehab)? @ -No Was there de-escalation of care discussed even if they declined? (Discuss DNR or withdrawal of care, Hospice)? @ -No What co-morbidities impacted this encounter? (DM, HTN, Smoking, COPD, CAD, Cancer, CVA, Hep., AIDS, mental health diagnosis, sleep apnea, morbid obesity)? @ -Fibroids, hypothyroidism, HTN Was patient admitted / discharged? @ -Discharged. Lab work demonstrates irregular thyroid function with elevated TSH at 11.6 and T4 low 0.59. Patient reports a history of hypothyroidism treated with levothyroxine. States that she has not had repeat lab work in quite a while. Hemoglobin and coags within normal limits. Transvaginal ultrasound obtained. This demonstrates uterine fibroids without other acute process. Patient given IV fluids, Toradol, and Zofran in the emergency department with improvement in symptoms. Bleeding likely related to the uterine fibroids. Discussed that irregular thyroid function can also be a contributing factor. She is advised to follow-up with her primary care provider as needed for medication adjustments on her levothyroxine. We discussed that NSAIDs can be beneficial to heavy uterine bleeding. She was given a prescription for ibuprofen and Zofran with dosing instructions reviewed. She is otherwise advised to follow-up with [facility]. Patient discharged home in stable condition. Undiagnosed new problem with uncertain prognosis? @ -None Drug Therapy requiring intensive monitoring for toxicity (Heparin, Nitro, Insulin, Cardizem)? @ -None Were any procedures done? @ -None Diagnosis/symptom? @ -Dysfunctional uterine bleeding Acute, or Chronic, or Acute on Chronic? @ -Acute Uncomplicated (without systemic symptoms) or Complicated (systemic symptoms)? @ -Uncomplicated Side effects of treatment? @ -None Exacerbation, Progression, or Severe Exacerbation] @ -Not applicable Poses a threat to life or bodily function? @ -Unlikely, unless the bleeding were to progress Return precautions reviewed in depth, the patient is instructed to return to the emergency department with any new, worsening, or concerning symptoms. Patient verbalized understanding. This case was discussed in detail with the attending ED physician, Dr. Mccoy. Presentation, findings, and treatment plan discussed in detail as well. - Lab Data Result diagrams: 01/10/24 10:01 01/10/24 10:01 Lab Results 01/10/24 01/10/24 01/10/24 Range/Units 10:01 10:01 10:01 WBC 8.8 (3.8-10.6) k/uL RBC 3.97 (3.80-5.40) m/uL Hgb 12.8 (11.4-16.0) gm/dL Hct 39.1 (34.0-46.0) % MCV 98.6 (80.0-100.0) fL MCH 32.4 (25.0-35.0) pg MCHC 32.8 (31.0-37.0) g/dL RDW 13.8 (11.5-15.5) % Plt Count 343 (150-450) k/uL MPV 8.5 Neutrophils % 70 % Lymphocytes % 23 % Monocytes % 3 % Eosinophils % 2 % Basophils % 0 % Neutrophils # 6.2 (1.3-7.7) k/uL Lymphocytes # 2.0 (1.0-4.8) k/uL Monocytes # 0.3 (0-1.0) k/uL Eosinophils # 0.2 (0-0.7) k/uL Basophils # 0.0 (0-0.2) k/uL PT 10.9 (10.0-12.5) sec INR 1.0 (<1.2) APTT 23.1 (22.0-30.0) sec Sodium 139 (137-145) mmol/L Potassium 4.7 (3.5-5.1) mmol/L Chloride 110 H (98-107) mmol/L Carbon Dioxide 19 L (22-30) mmol/L Anion Gap 10 mmol/L BUN 11 (7-17) mg/dL Creatinine 0.62 (0.52-1.04) mg/dL Est GFR (CKD-EPI)AfAm >90 (>60 ml/min/1.73 sqM) Est GFR (CKD-EPI)NonAf >90 (>60 ml/min/1.73 sqM) Glucose 100 H (74-99) mg/dL Calcium 9.3 (8.4-10.2) mg/dL Total Bilirubin 1.0 (0.2-1.3) mg/dL AST 27 (14-36) U/L ALT 12 (4-34) U/L Alkaline Phosphatase 72 (38-126) U/L Total Protein 7.3 (6.3-8.2) g/dL Albumin 3.8 (3.5-5.0) g/dL TSH 11.600 H (0.465-4.680) mIU/L Free T4 0.59 L (0.78-2.19) ng/dL HCG, Qual Not Detected Urine Color Urine Appearance (Clear) Urine pH (5.0-8.0) Ur Specific [place] (1.001-1.035) Urine Protein (Negative) Urine Glucose (UA) (Negative) Urine Ketones (Negative) Urine Blood (Negative) Urine Nitrite (Negative) Urine Bilirubin (Negative) Urine Urobilinogen (<2.0) mg/dL Ur Leukocyte Esterase (Negative) Urine RBC (0-5) /hpf Urine WBC (0-5) /hpf Ur Squamous Epith Cells (0-4) /hpf Amorphous Sediment (None) /hpf 01/10/24 Range/Units 10:43 WBC (3.8-10.6) k/uL RBC (3.80-5.40) m/uL Hgb (11.4-16.0) gm/dL Hct (34.0-46.0) % MCV (80.0-100.0) fL MCH (25.0-35.0) pg MCHC (31.0-37.0) g/dL RDW (11.5-15.5) % Plt Count (150-450) k/uL MPV Neutrophils % % Lymphocytes % % Monocytes % % Eosinophils % % Basophils % % Neutrophils # (1.3-7.7) k/uL Lymphocytes # (1.0-4.8) k/uL Monocytes # (0-1.0) k/uL Eosinophils # (0-0.7) k/uL Basophils # (0-0.2) k/uL PT (10.0-12.5) sec INR (<1.2) APTT (22.0-30.0) sec Sodium (137-145) mmol/L Potassium (3.5-5.1) mmol/L Chloride (98-107) mmol/L Carbon Dioxide (22-30) mmol/L Anion Gap mmol/L BUN (7-17) mg/dL Creatinine (0.52-1.04) mg/dL Est GFR (CKD-EPI)AfAm (>60 ml/min/1.73 sqM) Est GFR (CKD-EPI)NonAf (>60 ml/min/1.73 sqM) Glucose (74-99) mg/dL Calcium (8.4-10.2) mg/dL Total Bilirubin (0.2-1.3) mg/dL AST (14-36) U/L ALT (4-34) U/L Alkaline Phosphatase (38-126) U/L Total Protein (6.3-8.2) g/dL Albumin (3.5-5.0) g/dL TSH (0.465-4.680) mIU/L Free T4 (0.78-2.19) ng/dL HCG, Qual Urine Color Red Urine Appearance Cloudy H (Clear) Urine pH 7.0 (5.0-8.0) Ur Specific [place] 1.022 (1.001-1.035) Urine Protein 1+ H (Negative) Urine Glucose (UA) Negative (Negative) Urine Ketones Negative (Negative) Urine Blood Large H (Negative) Urine Nitrite Negative (Negative) Urine Bilirubin Negative (Negative) Urine Urobilinogen 3.0 (<2.0) mg/dL Ur Leukocyte Esterase Moderate H (Negative) Urine RBC >182 H (0-5) /hpf Urine WBC 12 H (0-5) /hpf Ur Squamous Epith Cells 1 (0-4) /hpf Amorphous Sediment Rare H (None) /hpf - Radiology Data Radiology results: report reviewed, image reviewed Disposition Clinical Impression: Dysfunctional uterine bleeding Disposition: HOME SELF-CARE Instructions (If sedation given, give patient instructions): Abnormal (Dysfunc tional) Uterine Bleeding (ED), Dysmenorrhea (ED) Additional Instructions: Return to the emergency department with any new, worsening, or concerning symptoms. Alternate with ibuprofen and Tylenol as needed for pain relief. The ibuprofen will also help with the bleeding. You can take the Zofran up to every 8 hours as needed for nausea and vomiting. Follow up with your primary care provider in 1-2 days. Discuss the abnormal thyroid function with them, as you may need a dosing adjustment. Prescriptions: Ibuprofen [Motrin] 800 mg PO Q8H PRN #30 tab PRN Reason: Pain Ondansetron Odt [Zofran Odt] 4 mg PO Q8HR PRN #15 tab PRN Reason: Nausea And Vomiting Is patient prescribed a controlled substance at d/c from ED?: No Referrals: Donnie Quiroga DO [Primary Care Provider] - 1-2 days Time of Disposition: 12:52
[2024-01-10] MEDS: SODIUM CHLORIDE 0.9% 1,000 ML IV STA (10:49)
[2024-01-10 10:50] LABS: Potassium 4.7 mmol/L (3.5-5.1)
[2024-01-10] MEDS: ONDANSETRON 4 MG/2 ML VIAL IVP STA (10:50)
[2024-01-10] MEDS: KETOROLAC 15 MG/ML 1 ML VIAL IVP STA (10:51)
[2024-01-10 11:00] LABS: Basophils % (A) 0 %; Eosinophils # (A) 0.2 k/uL (0-0.7); Eosinophils % (A) 2 %; HCT 39.1 % (34.0-46.0); HGB 12.8 gm/dL (11.4-16.0); Lymphocytes % (A) 23 %; MCH 32.4 pg (25.0-35.0); MCHC 32.8 g/dL (31.0-37.0); MCV 98.6 fL (80.0-100.0); Mean Platelet Volume 8.5; Monocytes # (A) 0.3 k/uL (0-1.0); Monocytes % (A) 3 %; Neutrophils # (A) 6.2 k/uL (1.3-7.7); Neutrophils % (A) 70 %; Platelet Count 343 k/uL (150-450); RBC 3.97 m/uL (3.80-5.40); RDW 13.8 % (11.5-15.5); WBC 8.8 k/uL (3.8-10.6)
[2024-01-10 11:03] LABS: Partial Thromboplastin Time 23.1 sec (22.0-30.0); Prothrombin Time 10.9 sec (10.0-12.5)
[2024-01-10 11:18] LABS: HCG,Qualitative Serum Not Detected
--- NOTE | 2024-01-10 11:37 | US ---
EXAMINATION TYPE: US transvaginal DATE OF EXAM: 01/10/2024 COMPARISON: NONE CLINICAL INDICATION: Female, 48 years old with history of Pelvic pain and vaginal bleeding; Irregular menses. Heavy bleeding with clots for 1 day. History of fibroids TECHNIQUE: Transabdominal (TA). Date of LMP: unknown EXAM MEASUREMENTS: Uterus: 10.0 x 7.7 x 10.2 cm Endometrial Stripe: 0.9 cm Right Ovary: unable to visualize Left Ovary: unable to visualize 1. Uterus: Retroverted heterogeneous. At least 2 fibroids noted = 5.4 x 5.1 x 4.6cm and 5.8 x 5.1 x 4.7cm 2. Endometrium: appears wnl as visualized 3. Right Ovary: Obscured by overlying bowel gas 4. Left Ovary: Obscured by overlying bowel gas 5. Bilateral Adnexa: wnl 6. Posterior cul-de-sac: small amount of fluid IMPRESSION: 1. Uterine fibroids.
[2024-01-10 11:48] LABS: T4, Free (Free Thyroxine) 0.59 ng/dL (0.78-2.19)
[2024-01-10 11:55] LABS: Amorphous Sediment,Urine Rare /hpf; Appearance,Urine Cloudy (Clear); Bilirubin,Urine Negative (Negative); Blood,Urine Large (Negative); Color,Urine Red; Glucose,Urine (UA) Negative (Negative); Ketones,Urine Negative (Negative); Leukocyte Esterase,Urine Moderate (Negative); Nitrite,Urine Negative (Negative); Protein,Urine 1+ (Negative); RBC,Urine >182 /hpf (0-5); Specific Gravity,Urine 1.022 (1.001-1.035); Squamous Epithelial Cell,Urine 1 /hpf (0-4); WBC,Urine 12 /hpf (0-5)
[2024-01-10] MEDS: ACET/COD 300 MG/30 MG STARTER PACK 6 TAB BTL PO STA (13:03)
[2024-01-10 13:23] VITALS: BP 176/82; PULSE 74; RESP 12
== END 2024-01-10 13:12 | disposition home or self-care (01) ==
LOC: EC 09:25
DX: D25.9 Leiomyoma of uterus, unspecified (principal); I10 Essential (primary) hypertension; E03.9 Hypothyroidism, unspecified; F17.290 Nicotine dependence, other tobacco product, uncomplicated; Z79.890 Hormone replacement therapy; Z79.899 Other long term (current) drug therapy; Z88.8 Allergy status to other drugs, medicaments and biological substances
CPT/HCPCS: 36415; 84439; 80053; 84443; 85025; 85610; 85730; 81001; 84703; 87086; 76830; 99284; 96374; 96375; 96361 ×2; J2405; J1885

== ENCOUNTER 2024-10-02 13:06 | Emergency (ER) | payer BC ==
[2024-10-02 13:37] VITALS: RESP 18
--- NOTE | 2024-10-02 15:12 | ED ---
Recheck HPI - General Source: patient, RN notes reviewed Mode of arrival: ambulatory Limitations: no limitations <Elvira Holbrook - Last Filed: 10/02/24 15:12> - General Source: patient, RN notes reviewed Mode of arrival: ambulatory Limitations: no limitations <Yoav Fleming - Last Filed: 10/02/24 20:21> - General Chief Complaint: Recheck/Abnormal Lab/Rx Stated Complaint: Generalized pain Time Seen by Provider: 10/02/24 15:12 - History of Present Illness Initial Comments: Quick note: 49-year-old female presented to the ER for evaluation of generalized pain. Patient has a history of rheumatoid arthritis. She states for the past 2 weeks she has had progressively worsening generalized pain. She does report low-grade fevers today. Admits to nausea. No chest pain or shortness of breath. (Elvira Holbrook) Patient is a 49-year-old female present to the emergency department with generalized pain and chills. Symptoms have been present for 2 weeks. Most of her discomfort has been of her joints affected by rheumatoid arthritis including the distal joints. Patient has had chills. No cough or congestion. No abdominal pain. Patient's left middle toe has been somewhat discolored and swollen and painful. (Yoav Fleming) - Related Data Home Medications Medication Instructions Recorded Confirmed Albuterol Inhaler [Ventolin Hfa 1 - 2 puff INHALATION RT-Q6H PRN 06/03/14 06/25/23 Inhaler] Ferrous Sulfate [Iron (65 MG 325 mg PO DAILY 05/28/23 06/25/23 Elemental)] Levothyroxine Sodium 25 mcg PO DAILY 05/28/23 06/25/23 Valsartan/Hydrochlorothiazide 1 tab PO DAILY 05/28/23 06/25/23 [Valsartan-Hctz 320-12.5 mg Tab] Previous Rx's Medication Instructions Recorded amLODIPine [Norvasc] 10 mg PO DAILY #30 tablet 03/03/23 Acetaminophen Tab [Tylenol Tab] 1,000 mg PO Q6HR PRN #30 tablet 06/25/23 Ibuprofen [Motrin] 800 mg PO Q8H PRN #30 tab 01/10/24 Ondansetron Odt [Zofran Odt] 4 mg PO Q8HR PRN #15 tab 01/10/24 Cephalexin [Keflex] 500 mg PO TID #21 cap 10/02/24 predniSONE [Deltasone] 20 mg PO BID #8 tab 10/02/24 Allergies Allergy/AdvReac Type Severity Reaction Status Date / Time lisinopril Allergy SWELLING,IT Verified 10/02/24 13:37 PINO Review of Systems ROS Other: All systems not noted in ROS Statement are negative. <Elvira Holbrook - Last Filed: 10/02/24 15:12> ROS Other: All systems not noted in ROS Statement are negative. Constitutional: Reports: chills. Denies: fever Eyes: Denies: eye pain ENT: Denies: ear pain Respiratory: Denies: cough, dyspnea Cardiovascular: Denies: chest pain Endocrine: Reports: fatigue Gastrointestinal: Denies: abdominal pain Musculoskeletal: Reports: as per HPI, joint swelling, arthralgia Skin: Denies: rash <Yoav Fleming Last Filed: 10/02/24 20:21> ROS Statement: Those systems with pertinent positive or pertinent negative responses have been documented in the HPI. 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 History of Any Multi-Drug Resistant Organisms: None Reported Past Surgical History: Appendectomy, Section, Cholecystectomy, Hernia Repair, Tubal Ligation Additional Past Surgical History / Comment(s): 3 c/s's Past Anesthesia/Blood Transfusion Reactions: No Reported Reaction Additional Past Anesthesia/Blood Transfusion Reaction / Comment(s): no blood transfusion Past Psychological History: No Psychological Hx Reported Smoking Status: Vaper Past Alcohol Use History: Occasional Past Drug Use History: None Reported - Past Family History Father Family Medical History: CVA/TIA, Hypertension Additional Family Medical History / Comment(s): still alive Mother Family Medical History: Deep Vein Thrombosis (DVT), Hypertension Additional Family Medical History / Comment(s): BLOOD CLOTS FOR LEGS ON COUMADIN NOT ON IT AT THIS TIME, MOTHER STILL ALIVE, vulva cancer <Elvira Holbrook - Last Filed: 10/02/24 15:12> General Exam Limitations: no limitations <Elvira Holbrook - Last Filed: 10/02/24 15:12> Limitations: no limitations General appearance: alert, in no apparent distress Head exam: Present: normocephalic Eye exam: Present: normal appearance ENT exam: Present: normal oropharynx Neck exam: Present: normal inspection Respiratory exam: Present: normal lung sounds bilaterally. Absent: respiratory distress Cardiovascular Exam: Present: regular rate, normal rhythm GI/Abdominal exam: Present: soft. Absent: distended, tenderness Extremities exam: Present: other (Hand deformities consistent with history of rheumatoid arthritis. Left second and third MCPs with some swelling. Left middle toe with mild swelling and minimal dark discoloration. Mild tenderness. Cap refill less than 2-second) Neurological exam: Present: alert Psychiatric exam: Present: normal affect, normal mood <Yoav Fleming - Last Filed: 10/02/24 20:21> - General Exam Comments Initial Comments: Visual Physical Exam Vital signs reviewed General: Well-appearing, nontoxic, no acute distress. Head: Normocephalic, atraumatic Eyes: PERRLA, EOMI ENT: Airway patent Chest: Nonlabored breathing Skin: No visual rash, normal skin tone Neuro: Alert and oriented 3 Musculoskeletal: No gross abnormalities (Elvira Holbrook) Course Vital Signs 10/02/24 13:34 Temperature 99.5 F Pulse Rate 84 Respiratory 18 Rate Blood Pressure 180/99 O2 Sat by Pulse 100 Oximetry Medical Decision Making <Elvira Holbrook - Last Filed: 10/02/24 15:12> - Lab Data Result diagrams: 10/02/24 17:48 10/02/24 19:25 <Yaov Fleming - Last Filed: 10/02/24 20:21> - Medical Decision Making I performed the quick note portion of this chart. Electronically signed by Elvira Holbrook PA-C (Elvira Holbrook) Was pt. sent in by a medical professional or institution ([facility], [employer] KEEPER, urgent care, hospital, or long term...) When possible be specific @ -No Did you speak to anyone other than the patient for history (EMS, parent, family, police, friend...)? What history was obtained from this source @ -No Did you review nursing and triage notes (agree or disagree)? Why? @ -I reviewed and agree with nursing and triage notes Were old charts reviewed (outside hosp., previous admission, EMS record, old EKG, old radiological studies, urgent care reports/EKG's, long term records)? Report findings @ -No old charts were reviewed Differential Diagnosis (chest pain, altered mental status, abdominal pain women, abdominal pain men, vaginal bleeding, weakness, fever, dyspnea, syncope, headache, dizziness, GI bleed, back pain, seizure, CVA, palpatations, mental health, musculoskeletal)? @ -Differential Fever: Pneumonia, viral URI, endocarditis, myocarditis, pericarditis, otitis, sinusitis, peritonsillar Abscess, retropharyngeal Abscess, epiglottitis, peritonitis, appendicitis, Melissa cystitis, diverticulitis, hepatitis, colitis, UTI, PID, TOA, pyelonephritis, prostatitis, epididymitis, meningitis, encephalitis, pulmonary embolism, CVA, thyroid storm, pancreatitis, adrenal crisis, cavernous sinus thrombosis, this is not meant to be an all-inclusive list. EKG interpreted by me (3pts min.). @ -As above X-rays interpreted by me (1pt min.). @ -Chest x-ray shows no acute process. Left foot x-ray does not reveal acute abnormality CT interpreted by me (1pt min.). @ -None done U/S interpreted by me (1pt. min.). @ -None done What testing was considered but not performed or refused? (CT, X-rays, U/S, labs)? Why? @ -None What meds were considered but not given or refused? Why? @ -None Did you discuss the management of the patient with other professionals (professionals i.e. , PA, LODGING HOUSE KEEPER, lab, RT, psych nurse, social services coordinator, medical artist, teacher, veterans service officer, family caseworker)? Give summary @ -No Was smoking cessation discussed for >3mins.? @ -No Was critical care preformed (if so, how long)? @ -No Were there social determinants of health that impacted care today? How? (Homelessness, low income, unemployed, alcoholism, drug addiction, transportation, low edu. Level, literacy, decrease access to med. care, long term, rehab)? @ -No Was there de-escalation of care discussed even if they declined (Discuss DNR or withdrawal of care, Hospice)? DNR status @ -No What co-morbidities impacted this encounter? (DM, HTN, Smoking, COPD, CAD, Cancer, CVA, ARF, Chemo, Hep., AIDS, mental health diagnosis, sleep apnea, mor bid obesity)? @ -History of rheumatoid arthritis Was patient admitted / discharged? Hospital course, mention meds given and route, prescriptions, significant lab abnormalities, going to OR and other pertinent info. @ -Patient presents with chills and general aching. Patient has possible beginning of flare of rheumatoid disease. Patient has had chills and any 9 temperature with left mid toe swelling and tenderness. Patient will be covered with antibiotics with concern for potential early infection of this area. Patient will also be covered with steroids to help with potential rheumatoid f lare. Patient is recommended close follow-up and return parameters discussed Undiagnosed new problem with uncertain prognosis? @ -No Drug Therapy requiring intensive monitoring for toxicity (Heparin, Nitro, Insulin, Cardizem)? @ -No Were any procedures done? @ -No Diagnosis/symptom? @ -Chills, rheumatoid arthritis for Acute, or Chronic, or Acute on Chronic? @ -Acute, acute Uncomplicated (without systemic symptoms) or Complicated (systemic symptoms)? @ -Default Side effects of treatment? @ -No Exacerbation, Progression, or Severe Exacerbation? @ -No Poses a threat to life or bodily function? How? (Chest pain, USA, PA, pneumonia, PE, COPD, DKA, ARF, appy, cholecystitis, CVA, Diverticulitis, Homicidal, Suicidal, threat to staff... and all critical care pts) @ -No (Yoav Fleming) - Lab Data Lab Results 10/02/24 10/02/24 10/02/24 Range/Units 14:06 17:48 17:48 WBC 9.0 (3.8-10.6) k/uL RBC 3.73 L (3.80-5.40) m/uL Hgb 11.3 L (11.4-16.0) gm/dL Hct 34.7 (34.0-46.0) % MCV 93.0 (80.0-100.0) fL MCH 30.1 (25.0-35.0) pg MCHC 32.4 (31.0-37.0) g/dL RDW 14.2 (11.5-15.5) % Plt Count 360 (150-450) k/uL MPV 7.5 Neutrophils % 67 % Lymphocytes % 26 % Monocytes % 3 % Eosinophils % 3 % Basophils % 0 % Neutrophils # 6.0 (1.3-7.7) k/uL Lymphocytes # 2.3 (1.0-4.8) k/uL Monocytes # 0.2 (0-1.0) k/uL Eosinophils # 0.3 (0-0.7) k/uL Basophils # 0.0 (0-0.2) k/uL Sodium (137-145) mmol/L Potassium (3.5-5.1) mmol/L Chloride (98-107) mmol/L Carbon Dioxide (22-30) mmol/L Anion Gap mmol/L BUN (7-17) mg/dL Creatinine (0.52-1.04) mg/dL Est GFR (CKD-EPI)AfAm (>60 ml/min/1.73 sqM) Est GFR (CKD-EPI)NonAf (>60 ml/min/1.73 sqM) Glucose (74-99) mg/dL Plasma Lactic Acid Tomasz (0.7-2.0) mmol/L Calcium (8.4-10.2) mg/dL Total Bilirubin (0.2-1.3) mg/dL AST (14-36) U/L ALT (4-34) U/L Alkaline Phosphatase (38-126) U/L C-Reactive Protein (<1.0) mg/dL Total Protein (6.3-8.2) g/dL Albumin (3.5-5.0) g/dL Urine Color Yellow Urine Appearance Clear (Clear) Urine pH 6.0 (5.0-8.0) Ur Specific [place] 1.025 (1.001-1.035) Urine Protein Trace H (Negative) Urine Glucose (UA) Negative (Negative) Urine Ketones Negative (Negative) Urine Blood Negative (Negative) Urine Nitrite Negative (Negative) Urine Bilirubin Negative (Negative) Urine Urobilinogen 4.0 (<2.0) mg/dL Ur Leukocyte Esterase Negative (Negative) Influenza Type A (PCR) Not Detected (Not Detectd) Influenza Type B (PCR) Not Detected (Not Detectd) RSV (PCR) Not Detected (Not Detectd) SARS-CoV-2 (PCR) Not Detected (Not Detectd) 10/02/24 10/02/24 Range/Units 17:48 19:25 WBC (3.8-10.6) k/uL RBC (3.80-5.40) m/uL Hgb (11.4-16.0) gm/dL Hct (34.0-46.0) % MCV (80.0-100.0) fL MCH (25.0-35.0) pg MCHC (31.0-37.0) g/dL RDW (11.5-15.5) % Plt Count (150-450) k/uL MPV Neutrophils % % Lymphocytes % % Monocytes % % Eosinophils % % Basophils % % Neutrophils # (1.3-7.7) k/uL Lymphocytes # (1.0-4.8) k/uL Monocytes # (0-1.0) k/uL Eosinophils # (0-0.7) k/uL Basophils # (0-0.2) k/uL Sodium 138 (137-145) mmol/L Potassium 3.4 L (3.5-5.1) mmol/L Chloride 108 H (98-107) mmol/L Carbon Dioxide 26 (22-30) mmol/L Anion Gap 4 mmol/L BUN 9 (7-17) mg/dL Creatinine 0.57 (0.52-1.04) mg/dL Est GFR (CKD-EPI)AfAm >90 (>60 ml/min/1.73 sqM) Est GFR (CKD-EPI)NonAf >90 (>60 ml/min/1.73 sqM) Glucose 90 (74-99) mg/dL Plasma Lactic Acid Tomasz 0.8 (0.7-2.0) mmol/L Calcium 9.7 (8.4-10.2) mg/dL Total Bilirubin 0.9 (0.2-1.3) mg/dL AST 14 (14-36) U/L ALT 8 (4-34) U/L Alkaline Phosphatase 95 (38-126) U/L C-Reactive Protein 3.5 H (<1.0) mg/dL Total Protein 7.0 (6.3-8.2) g/dL Albumin 3.5 (3.5-5.0) g/dL Urine Color Urine Appearance (Clear) Urine pH (5.0-8.0) Ur Specific [place] (1.001-1.035) Urine Protein (Negative) Urine Glucose (UA) (Negative) Urine Ketones (Negative) Urine Blood (Negative) Urine Nitrite (Negative) Urine Bilirubin (Negative) Urine Urobilinogen (<2.0) mg/dL Ur Leukocyte Esterase (Negative) Influenza Type A (PCR) (Not Detectd) Influenza Type B (PCR) (Not Detectd) RSV (PCR) (Not Detectd) SARS-CoV-2 (PCR) (Not Detectd) Disposition <Elvira Holbrook - Last Filed: 10/02/24 15:12> Is patient prescribed a controlled substance at d/c from ED?: No Time of Disposition: 20:20 <Yoav Fleming - Last Filed: 10/02/24 20:21> Clinical Impression: Chills, Rheumatoid arthritis flare Disposition: HOME SELF-CARE Condition: Stable Instructions (If sedation given, give patient instructions): Rheumatoid Arthritis (ED), Cellulitis (ED) Additional Instructions: Prescription sent to pharmacy. Please follow-up with primary care physician in the next 1 or 2 days for recheck. Return for fevers, rash, increased swelling or pain, worsening symptoms or other concerns. Prescriptions: predniSONE [Deltasone] 20 mg PO BID #8 tab Cephalexin [Keflex] 500 mg PO TID #21 cap Referrals: Donnie Quiroga DO [Primary Care Provider] - 1-2 days
--- NOTE | 2024-10-02 17:17 | XR ---
EXAMINATION TYPE: XR foot complete LT DATE OF EXAM: 10/02/2024 5:10 PM COMPARISON: 08/12/2015 CLINICAL INDICATION: Female, 49 years old with history of middle toe pain; , pain TECHNIQUE: XR foot complete LT examined in the AP, oblique, and lateral projections. FINDINGS: No evidence of any acute osseous pathology. Multifocal degeneration changes throughout the joints of the foot with osteophyte formation and joint space narrowing. IMPRESSION: 1. No evidence of acute fracture. 2. 2. Multifocal degeneration changes throughout the joints of the foot. [facility], , 10/02/2024 5:14 PM
--- NOTE | 2024-10-02 17:18 | XR ---
EXAMINATION TYPE: XR chest 2V DATE OF EXAM: 10/02/2024 5:10 PM COMPARISON: Chest radiographs from 03/03/2022 CLINICAL INDICATION: Female, 49 years old with history of fever; TECHNIQUE: XR chest 2V Frontal and lateral views of the chest. FINDINGS: Lungs/Pleura: There is no evidence of pleural effusion, focal consolidation, or pneumothorax. Pulmonary vascularity: Unremarkable. Heart/mediastinum: Cardiomediastinal silhouette is unremarkable. Musculoskeletal: No acute osseous pathology. IMPRESSION: No acute cardiopulmonary disease/process. [facility], , 10/02/2024 5:15 PM
[2024-10-02] MEDS: ACETAMINOPHEN TAB 500 MG TAB PO STA (17:38)
[2024-10-02 18:06] LABS: Basophils % (A) 0 %; Eosinophils # (A) 0.3 k/uL (0-0.7); Eosinophils % (A) 3 %; HCT 34.7 % (34.0-46.0); HGB 11.3 gm/dL (11.4-16.0); Lymphocytes # (A) 2.3 k/uL (1.0-4.8); Lymphocytes % (A) 26 %; MCH 30.1 pg (25.0-35.0); MCHC 32.4 g/dL (31.0-37.0); Mean Platelet Volume 7.5; Monocytes # (A) 0.2 k/uL (0-1.0); Monocytes % (A) 3 %; Neutrophils % (A) 67 %; Platelet Count 360 k/uL (150-450); RBC 3.73 m/uL (3.80-5.40); RDW 14.2 % (11.5-15.5)
[2024-10-02 18:07] LABS: Appearance,Urine Clear (Clear); Bilirubin,Urine Negative (Negative); Blood,Urine Negative (Negative); Color,Urine Yellow; Glucose,Urine (UA) Negative (Negative); Ketones,Urine Negative (Negative); Leukocyte Esterase,Urine Negative (Negative); Nitrite,Urine Negative (Negative); Protein,Urine Trace (Negative); Specific Gravity,Urine 1.025 (1.001-1.035)
[2024-10-02 19:52] LABS: ALT 8 U/L (4-34); AST 14 U/L (14-36); African American GFR (CKD) >90 (>60 ml/min/1.73 sqM); Albumin 3.5 g/dL (3.5-5.0); Alkaline Phosphatase 95 U/L (38-126); Anion Gap 4 mmol/L; Blood Urea Nitrogen 9 mg/dL (7-17); C Reactive Protein 3.5 mg/dL (<1.0); Calcium 9.7 mg/dL (8.4-10.2); Carbon Dioxide 26 mmol/L (22-30); Chloride 108 mmol/L (98-107); Glucose 90 mg/dL (74-99); Non-African American GFR(CKD) >90 (>60 ml/min/1.73 sqM); Potassium 3.4 mmol/L (3.5-5.1); Sodium 138 mmol/L (137-145); Total Bilirubin 0.9 mg/dL (0.2-1.3)
[2024-10-02] MEDS: predniSONE 20 MG TAB PO STA (20:31)
[2024-10-02 20:42] VITALS: BP 164/100; PULSE 65; TEMP 98.4
[2024-10-03 03:18] LABS: Rheumatoid Factor, Qnt <15 IU/mL (0-15)
== END 2024-10-02 20:42 | disposition home or self-care (01) ==
LOC: EC 13:06
DX: M06.9 Rheumatoid arthritis, unspecified (principal); R68.83 Chills (without fever); F17.290 Nicotine dependence, other tobacco product, uncomplicated; Z88.8 Allergy status to other drugs, medicaments and biological substances
CPT/HCPCS: 36415; 80053; 83605; 85025; 86140; 86431; 81003; 87040; 87636; 73630; 71046; 99283; J7512

== ENCOUNTER 2024-12-11 21:45 | Emergency (ER) | payer BC ==
[2024-12-11 22:18] VITALS: RESP 18; TEMP 99
--- NOTE | 2024-12-11 22:32 | ED ---
Extremity Problem HPI - General Chief complaint: Extremity Problem,Nontraumatic Stated complaint: Lft leg pain, rt hand swollen Time Seen by Provider: 12/11/24 22:24 Source: patient Mode of arrival: ambulatory Limitations: no limitations - History of Present Illness Initial comments: 49-year-old female presenting with chief complaint of swelling of the left leg and right hand. This has been ongoing since Wednesday. She admits to diffuse discomfort. No known injury or trauma. She does have some numbness and tingling in the leg which she thinks may be due to her lower back pain. She still has full range of motion. She does have increased pain with ambulating. She states that she does have history of rheumatoid arthritis. No history of blood clots. No recent surgery or long travel. No chest pain or difficulty breathing. No fever. No nausea or vomiting. - Related Data Home Medications Medication Instructions Recorded Confirmed Albuterol Inhaler [Ventolin Hfa 1 - 2 puff INHALATION RT-Q6H PRN 06/03/14 06/25/23 Inhaler] Ferrous Sulfate [Iron (65 MG 325 mg PO DAILY 05/28/23 06/25/23 Elemental)] Levothyroxine Sodium 25 mcg PO DAILY 05/28/23 06/25/23 Valsartan/Hydrochlorothiazide 1 tab PO DAILY 05/28/23 06/25/23 [Valsartan-Hctz 320-12.5 mg Tab] Previous Rx's Medication Instructions Recorded amLODIPine [Norvasc] 10 mg PO DAILY #30 tablet 03/03/23 Acetaminophen Tab [Tylenol Tab] 1,000 mg PO Q6HR PRN #30 tablet 06/25/23 Ibuprofen [Motrin] 800 mg PO Q8H PRN #30 tab 01/10/24 Ondansetron Odt [Zofran Odt] 4 mg PO Q8HR PRN #15 tab 01/10/24 Cephalexin [Keflex] 500 mg PO TID #21 cap 10/02/24 predniSONE [Deltasone] 20 mg PO BID #8 tab 10/02/24 methylPREDNISolone Dose Pack 4 mg PO DIRECTED #1 packet 12/12/24 [Medrol Dose Pack] Allergies Allergy/AdvReac Type Severity Reaction Status Date / Time lisinopril Allergy SWELLING,IT Verified 12/11/24 22:14 PINO Review of Systems ROS Statement: Those systems with pertinent positive or pertinent negative responses have been documented in the HPI. ROS Other: All systems not noted in ROS Statement are negative. 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 History of Any Multi-Drug Resistant Organisms: None Reported Past Surgical History: Appendectomy, Section, Cholecystectomy, Hernia Repair, Tubal Ligation Additional Past Surgical History / Comment(s): 3 c/s's Past Anesthesia/Blood Transfusion Reactions: No Reported Reaction Additional Past Anesthesia/Blood Transfusion Reaction / Comment(s): no blood transfusion Past Psychological History: No Psychological Hx Reported Smoking Status: Vaper Past Alcohol Use History: Occasional Past Drug Use History: None Reported - Past Family History Father Family Medical History: CVA/TIA, Hypertension Additional Family Medical History / Comment(s): still alive Mother Family Medical History: Deep Vein Thrombosis (DVT), Hypertension Additional Family Medical History / Comment(s): BLOOD CLOTS FOR LEGS ON COUMADIN NOT ON IT AT THIS TIME, MOTHER STILL ALIVE, vulva cancer General Exam Limitations: no limitations General appearance: alert, in no apparent distress Head exam: Present: atraumatic, normocephalic, normal inspection Eye exam: Present: normal appearance, EOMI Neck exam: Present: normal inspection. Absent: meningismus Respiratory exam: Absent: respiratory distress Cardiovascular Exam: Present: regular rate Extremities exam: Present: normal capillary refill Right Hand Wrist exam: Present: full ROM, swelling. Absent: tenderness Left Knee exam: Present: full ROM, tenderness, swelling Lower Leg exam: Present: full ROM, tenderness, swelling Foot/Toe exam: Present: full ROM, tenderness, swelling Neurovascular tendon exam: Present: no vascular compromise Neurological exam: Present: alert, oriented X3 Psychiatric exam: Present: normal affect, normal mood Skin exam: Present: warm, dry Course Vital Signs 12/11/24 12/12/24 22:14 03:28 Temperature 99 F Pulse Rate 80 69 Respiratory 18 18 Rate Blood Pressure 188/113 143/92 O2 Sat by Pulse 100 96 Oximetry Medical Decision Making - Medical Decision Making Was pt. sent in by a medical professional or institution (, PA, [employer] SPECIALIST, urgent care, hospital, or senior care...) When possible be specific @ -No Did you speak to anyone other than the patient for history (EMS, parent, family, police, friend...)? What history was obtained from this source @ -No Did you review nursing and triage notes (agree or disagree)? Why? @ -I reviewed and agree with nursing and triage notes Were old charts reviewed (outside hosp., previous admission, EMS record, old EKG, old radiological studies, urgent care reports/EKG's, senior care records)? Report findings @ -No old charts were reviewed Differential Diagnosis (chest pain, altered mental status, abdominal pain women, abdominal pain men, vaginal bleeding, weakness, fever, dyspnea, syncope, headache, dizziness, GI bleed, back pain, seizure, CVA, palpatations, mental health, musculoskeletal)? @ -Differential Musculoskeletal Muscular strain, contusion, ligament sprain, fracture, arthritis, septic arthritis, bursitis, cellulitis, muscle spasm, nerve compression, DVT, arterial occlusion, herpes zoster, electrolyte abnormality, tumor.... This is not meant to be in all inclusive list EKG interpreted by me (3pts min.). @ -As above X-rays interpreted by me (1pt min.). @ -None done CT interpreted by me (1pt min.). @ -None done U/S interpreted by me (1pt. min.). @ -Negative ultrasound of the left lower extremity and right upper extremity for DVT. What testing was considered but not performed or refused? (CT, X-rays, U/S, labs)? Why? @ -None What meds were considered but not given or refused? Why? @ -None Did you discuss the management of the patient with other professionals (professionals i.e. , PA, [employer] OPERATIONS SPECIALIST, lab, RT, psych nurse, psychiatric social worker, sports lawyer, teacher, contact officer, gearcase assembler)? Give summary @ -No Was smoking cessation discussed for >3mins.? @ -No Was critical care preformed (if so, how long)? @ -No Were there social determinants of health that impacted care today? How? (Home lessness, low income, unemployed, alcoholism, drug addiction, transportation, low edu. Level, literacy, decrease access to med. care, retirement, rehab)? @ -No Was there de-escalation of care discussed even if they declined (Discuss DNR or withdrawal of care, Hospice)? DNR status @ -No What co-morbidities impacted this encounter? (DM, HTN, Smoking, COPD, CAD, Cancer, CVA, ARF, Chemo, Hep., AIDS, mental health diagnosis, sleep apnea, morbid obesity)? @ -None Was patient admitted / discharged? Hospital course, mention meds given and route, prescriptions, significant lab abnormalities, going to OR and other pertinent info. @ -49-year-old female presenting with chief complaint of swelling in the left lower leg and right hand. History of rheumatoid arthritis. No injuries. No fever, redness, excessive warmth. Swelling and tenderness is noted on exam. Ultrasounds are obtained. I had to contact machine shop repair technician Violeta who provided me with the reports through stat rad reading negative for DVT on the left lower extremity and right upper extremity. Patient will be treated for rheumatoid arthritis flare with Medrol Dosepak. She is educated on today's findings and treatment plan. Provided with work note. Follow-up with PCP. Report back to ER with any new or worsening symptoms. Discussed return parameters and answered all questions. Patient conveyed verbal understanding and agreed to the plan. I discussed this case in detail with my attending Dr. Patterson Undiagnosed new problem with uncertain prognosis? @ -No Drug Therapy requiring intensive monitoring for toxicity (Heparin, Nitro, Insulin, Cardizem)? @ -No Were any procedures done? @ -No Diagnosis/symptom? @ -Rheumatoid arthritis flare Acute, or Chronic, or Acute on Chronic? @ -Acute on chronic Uncomplicated (without systemic symptoms) or Complicated (systemic symptoms)? @ -Uncomplicated Side effects of treatment? @ -No Exacerbation, Progression, or Severe Exacerbation? @ -No Poses a threat to life or bodily function? How? (Chest pain, USA, OR, pneumonia, PE, COPD, DKA, ARF, appy, cholecystitis, CVA, Diverticulitis, Homicidal, Suicidal, threat to staff... and all critical care pts) @ -Low likelihood Disposition Clinical Impression: Rheumatoid arthritis flare Disposition: HOME SELF-CARE Condition: Good Instructions (If sedation given, give patient instructions): Rheumatoid Arthritis (ED) Additional Instructions: Follow-up with PCP. Report back to ER with any new or worsening symptoms. Prescriptions: methylPREDNISolone Dose Pack [Medrol Dose Pack] 4 mg PO DIRECTED #1 packet Is patient prescribed a controlled substance at d/c from ED?: No Referrals: Donnie Quiroga DO [Primary Care Provider] - 1-2 days Time of Disposition: 03:15
[2024-12-11] MEDS: DEXAMETHASONE SOD PHOSPHATE 10 MG/ML 1 ML VIAL IM STA (22:50)
[2024-12-11] MEDS: KETOROLAC 15 MG/ML 1 ML VIAL IM STA (22:50)
[2024-12-12 03:29] VITALS: BP 143/92; PULSE 69
--- NOTE | 2024-12-12 06:00 | US ---
EXAMINATION TYPE: US venous doppler duplex LE LT DATE OF EXAM: 12/11/2024 11:34 PM COMPARISON: Prior bilateral lower extremity ultrasound 2020 CLINICAL INDICATION: Female, 49 years old with history of swelling; pt states leg swelling and pain. no hx dvt. no warmth or redness, Pain TECHNIQUE: The lower extremity deep venous system is examined utilizing real time linear array sonog sandy with graded compression, color doppler sonography, and spectral doppler. SIDE PERFORMED: left FINDINGS: VESSELS IMAGED: Common Femoral Vein Deep Femoral Vein Greater Saphenous Vein * Femoral Vein Popliteal Vein Small Saphenous Vein * Proximal Calf Veins (* superficial vessels) Left Leg: negative for dvt, Color Doppler imaging shows patency of the vessels. Spectral waveforms a re within normal limits. IMPRESSION: 1. No evidence of deep vein thrombosis of the left lower extremity. [facility], , 12/12/2024 5:57 AM
--- NOTE | 2024-12-12 06:01 | US ---
EXAMINATION TYPE: US venous doppler duplex UE RT DATE OF EXAM: 12/11/2024 COMPARISON: NONE CLINICAL INDICATION: Female, 49 years old with history of swelling; patient states hand swelling. no warmth redness or hx of dvt. not on thinners TECHNIQUE: Grayscale, color Doppler and spectral Doppler imaging of the upper extremity. SIDE PERFORMED: right VESSELS IMAGED: IJV Subclavian Vein Axilla Vein Brachial Vein(s) Radial Paired Veins Ulnar Paired Veins Cephalic Vein* Basilic Vein* (*superficial vessels) FINDINGS: Right Arm: negative for dvt Grayscale, color doppler, spectral doppler imaging performed of the deep veins of the upper extremiti es. IMPRESSION: No ultrasound evidence for acute deep or superficial venous thrombosis in the right upper extremity. [facility], , 12/12/2024 5:58 AM
== END 2024-12-12 03:29 | disposition home or self-care (01) ==
LOC: EC 21:45
DX: M06.9 Rheumatoid arthritis, unspecified (principal); F17.290 Nicotine dependence, other tobacco product, uncomplicated; Z88.8 Allergy status to other drugs, medicaments and biological substances
CPT/HCPCS: 93971 ×2; 99284; 96372 ×2; J1100; J1885

== ENCOUNTER → 2025-03-05 | Outpatient (CLI) | payer BC ==
--- NOTE | 2025-03-05 18:06 | CA ---
Transthoracic Echo Report Name: Vandana Guo Age: 49 Gender: F : 1975 Exam Date: 03/05/2025 16:03 Exam Location: [facility] Ht (in): 64 Wt (lb): 166 Ordering Physician: Donnie Quiroga DO Attending/Referring Phys: [place] [facility] [employer] Professor Allison Jimenez RDCS Procedure CPT: Indications: R55 SYNCOPE AND COLLAPSE Cardiac Hx: Technical Quality: Good Contrast 1: Total Dose (mL): Contrast 2: Total Dose (mL): MEASUREMENTS (Male / Female) Normal Values 2D ECHO LV Diastolic Diameter PLAX 4.0 cm 4.2 - 5.9 / 3.9 - 5.3 cm LV Systolic Diameter PLAX 2.4 cm IVS Diastolic Thickness 1.3 cm 0.6 - 1.0 / 0.6 - 0.9 cm LVPW Diastolic Thickness 1.3 cm 0.6 - 1.0 / 0.6 - 0.9 cm LV Relative Wall Thickness 0.6 RV Internal Dim ED PLAX 3.1 cm LA Systolic Diameter LX 3.6 cm 3.0 - 4.0 / 2.7 - 3.8 cm LV Diastolic Volume MOD BP 72.8 cm??? 67 - 155 / 56 - 104 cm??? LV Systolic Volume MOD BP 24.4 cm??? 22 - 58 / 19 - 49 cm??? LV Ejection Fraction MOD BP 66.5 % >= 55 % LV Cardiac Index MOD BP 1999.2 cm???/min???m??? LV Diastolic Volume MOD 4C 87.2 cm??? LV Systolic Volume MOD 4C 40.3 cm??? LV Ejection Fraction MOD 4C 53.9 % LV Cardiac Index MOD 4C 1939.3 cm???/min???m??? LV Diastolic Length 4C 8.1 cm LV Systolic Length 4C 6.4 cm LV Diastolic Volume MOD 2C 76.1 cm??? LV Systolic Volume MOD 2C 24.4 cm??? LV Ejection Fraction MOD 2C 68.0 % LV Cardiac Index MOD 2C 2135.9 cm???/min???m??? LV Diastolic Length 2C 7.5 cm LV Systolic Length 2C 5.8 cm M-MODE Aortic Root Diameter MM 3.2 cm LA Systolic Diameter MM 3.5 cm LA Ao Ratio MM 1.1 DOPPLER AV Peak Velocity 102.5 cm/s AV Peak Gradient 4.2 mmHg Mitral E Point Velocity 62.1 cm/s Mitral A Point Velocity 73.4 cm/s Mitral E to A Ratio 0.8 MV Deceleration Time 272.6 ms MV E' Velocity 5.5 cm/s Mitral E to MV E' Ratio 11.3 TR Peak Velocity 201.7 cm/s TR Peak Gradient 16.3 mmHg Right Ventricular Systolic Press 26.3 mmHg FINDINGS Left Ventricle Left ventricular ejection fraction is estimated at 55-60 %. Left ventricular cavity size normal. Mild concentric left ventricular hypertrophy. Right Ventricle Normal right ventricular size. Right ventricular systolic pressure within normal limits. Right Atrium Normal right atrial size. No right atrial thrombus or mass seen. Left Atrium Normal left atrial size. No left atrial thrombus or mass present. Mitral Valve Structurally normal mitral valve. Trace mitral regurgitation. Aortic Valve Trileaflet aortic valve. No aortic valve stenosis or regurgitation. Tricuspid Valve Structurally normal tricuspid valve. Mild tricuspid regurgitation. Pulmonic Valve Structurally normal pulmonic valve. No pulmonic regurgitation. Pericardium No pericardial effusion. Aorta Normal size aortic root and proximal ascending aorta. CONCLUSIONS Reason for test: Syncope LVH with preserved systolic function Previewed by: Dr. Fred Luna MD (Electronically Signed) Final Date: 05 Mar 2025 18:05
== END | disposition home or self-care (01) ==
LOC: RADECHMAIN 15:57
PROVIDERS: ATTEND Family Medicine
DX: I07.1 Rheumatic tricuspid insufficiency (principal); I34.0 Nonrheumatic mitral (valve) insufficiency; R55 Syncope and collapse
CPT/HCPCS: 93306